=== PATIENT | female | born 1950 | race Caucasian/White ===

== ENCOUNTER 2016-10-24 09:29 | Outpatient (CLI) | payer MEDICARE, MEDICAID | END 2016-10-24 09:30 | disposition home or self-care (01) | DX: E89.0 Postprocedural hypothyroidism (principal); I10 Essential (primary) hypertension ==

== ENCOUNTER 2016-11-22 16:05 | Outpatient (CLI) | payer MEDICARE, MEDICAID | END 2016-11-22 16:06 | disposition home or self-care (01) | DX: D50.9 Iron deficiency anemia, unspecified (principal); R23.3 Spontaneous ecchymoses ==

== ENCOUNTER 2016-12-14 13:13 | Outpatient (CLI) | payer MEDICARE, MEDICAID | END 2016-12-14 13:14 | disposition home or self-care (01) | DX: E89.0 Postprocedural hypothyroidism (principal) ==

== ENCOUNTER 2016-12-16 12:14 | Observation (INO) | payer MEDICARE, MEDICAID ==
[2016-12-16] MEDS ORDERED: SODIUM CHLORIDE FLUSH 0.9% 10 ML SYRINGE IVP PRN (15:22)
[2016-12-16] MEDS ORDERED: ONDANSETRON ODT 4 MG TABLET TL PRN (15:22)
[2016-12-16] MEDS ORDERED: ACETAMINOPHEN/CODEINE 300 MG/30 MG TABLET PO PRN (15:42)
[2016-12-16] MEDS: INSULIN ASPART 300 UNIT/3 ML PEN SUBQ SCH ×2 (16:56→22:43)
[2016-12-16] MEDS: DIGOXIN 125 MCG TABLET PO SCH (17:00)
[2016-12-16] MEDS: GABAPENTIN 300 MG CAPSULE PO SCH ×2 (17:10→22:42)
[2016-12-16] MEDS: MORPHINE ER 15 MG TABLET PO SCH ×2 (17:10→22:42)
[2016-12-16] MEDS: ACETAMINOPHEN 325 MG TABLET PO PRN (20:46)
[2016-12-16] MEDS ORDERED: WARFARIN 2.5 MG TABLET PO SCH (22:00)
[2016-12-16] MEDS: WARFARIN 5 MG TABLET PO SCH (22:42)
[2016-12-16] MEDS: SODIUM CHLORIDE FLUSH 0.9% 10 ML SYRINGE IVP SCH (22:43)
[2016-12-16] MEDS ORDERED: NITROFURANTOIN MACRO 100 MG CAPSULE PO SCH (23:00)
[2016-12-17] MEDS: SODIUM CHLORIDE FLUSH 0.9% 10 ML SYRINGE IVP SCH ×2 (05:39→14:10)
[2016-12-17] MEDS: MORPHINE ER 15 MG TABLET PO SCH ×2 (05:39→14:09)
[2016-12-17] MEDS: GABAPENTIN 300 MG CAPSULE PO SCH ×2 (05:39→14:09)
[2016-12-17] MEDS: ACETAMINOPHEN 325 MG TABLET PO PRN (05:48)
[2016-12-17] MEDS ORDERED: diazePAM 5 MG TABLET PO SCH (08:00)
[2016-12-17] MEDS: DIGOXIN 125 MCG TABLET PO SCH (08:15)
[2016-12-17] MEDS: INSULIN ASPART 300 UNIT/3 ML PEN SUBQ SCH ×3 (08:16→16:48)
[2016-12-17] MEDS ORDERED: FAMOTIDINE 20 MG TABLET PO SCH (09:00)
[2016-12-17] MEDS ORDERED: POLYETHYLENE GLYCOL 3350 17 GM PACKET PO SCH (09:00)
[2016-12-17] MEDS ORDERED: LOSARTAN 50 MG TABLET PO SCH (09:00)
[2016-12-17] MEDS ORDERED: DULoxetine 30 MG CAPSULE PO SCH (09:00)
[2016-12-17] MEDS ORDERED: FUROSEMIDE 20 MG TABLET PO SCH (09:00)
[2016-12-17] MEDS ORDERED: ASPIRIN CHEW 81 MG TABLET PO SCH (09:00)
[2016-12-17] MEDS ORDERED: WARFARIN 5 MG TABLET PO SCH (14:00)
[2016-12-17] MEDS: WARFARIN 5 MG TABLET PO SCH (14:09)
== END 2016-12-17 19:00 | disposition home or self-care (01) ==
DX: I63.9 Cerebral infarction, unspecified (principal); H53.2 Diplopia; R29.700 NIHSS score 0; R91.8 Other nonspecific abnormal finding of lung field; I69.398 Other sequelae of cerebral infarction; I10 Essential (primary) hypertension; I48.2 Chronic atrial fibrillation; E11.9 Type 2 diabetes mellitus without complications; E89.0 Postprocedural hypothyroidism; E66.9 Obesity, unspecified; M79.7 Fibromyalgia; G89.29 Other chronic pain; F11.20 Opioid dependence, uncomplicated; F32.9 Major depressive disorder, single episode, unspecified; N30.20 Other chronic cystitis without hematuria; Z79.84 Long term (current) use of oral hypoglycemic drugs; Z79.01 Long term (current) use of anticoagulants; Z79.2 Long term (current) use of antibiotics; Z68.33 Body mass index [BMI] 33.0-33.9, adult; Z86.2 Personal history of diseases of the blood and blood-forming organs and certain disorders involving the immune mechanism
CPT/HCPCS: 36415; 70450; 70551; 71020; 80053; 81003; 83036; 83690; 83880; 84439; 84484; 85025; 85610; 85730; 93005; 93010; 93306; 93880; 99284; 99285; A9270; G0378

== ENCOUNTER 2017-01-18 08:39 | Outpatient (CLI) | payer MEDICARE, MEDICAID | END 2017-01-18 08:40 | disposition home or self-care (01) | DX: I63.9 Cerebral infarction, unspecified (principal); I66.21 Occlusion and stenosis of right posterior cerebral artery; I48.0 Paroxysmal atrial fibrillation ==

== ENCOUNTER 2017-01-22 10:30 | Outpatient (CLI) | payer MEDICARE, MEDICAID | END 2017-01-22 10:31 | disposition home or self-care (01) | DX: G89.4 Chronic pain syndrome (principal) ==

== ENCOUNTER 2017-02-28 13:32 | Outpatient (CLI) | payer MEDICARE, MEDICAID ==
--- NOTE | 2017-02-28 16:30 | MRI Report ---
EXAM: MRI BRAIN WITHOUT CONTRAST EXAM DATE: 02/28/2017 02:29 PM. CLINICAL HISTORY: CEREBRAL INFARCTION DUE TO EMBOLISM OF RT MIDDLE C. COMPARISON: MRI brain 01/18/2017, MRA brain 01/18/2017 TECHNIQUE: Multiplanar, multisequence T1-weighted and fluid-sensitive MR sequences of the brain were performed. Sequences optimized for routine evaluation. Other: None. IV Contrast: None. FINDINGS: Brain Volume: Normal for age. Parenchyma/Dura: Compared to the prior study performed on 01/18/2017, there is a new focus of high DW I signal and new FLAIR signal abnormality measuring 11 mm in the right cingulate gyrus (series 605 im age 128), with nearly normalized ADC values, likely representing a now subacute infarct. There is a 5 mm focus of restricted diffusion within the right frontal opercular region (series 605 image 112), m ay represent acute/early subacute infarct. There is also a 4 mm right cerebellar focus of restricted diffusion (series 605 image 56), which may also represent an acute/early subacute infarct. There is n o hemorrhagic transformation of any of the infarctions. No MRI evidence of intracranial hemorrhage or parenchymal microhemorrhages. Extensive, semi-confluent T2/FLAIR hyperintense white matter lesions w ithin periventricular, deep, and subcortical white matter of bilateral cerebral hemispheres as well a s within the abel centrally and within the cerebellar hemispheres. Ventricles/Cisterns: Normal. No hydrocephalus. Sinuses: Normal. No sinusitis evident. Bones: Normal. Other: Partially empty sella appearance is again noted. Status post bilateral lens placement surgerie s. The visualized orbits are otherwise unremarkable. IMPRESSION: 1. Compared to the prior study performed on 01/18/2017, there is a new focus of high DWI signal and n ew FLAIR signal abnormality measuring 11 mm in the right cingulate gyrus (series 605 image 128), with nearly normalized ADC values, likely representing a now subacute infarct. A 5 mm focus of restricted diffusion within the right frontal opercular region (series 605 image 112), likely representing acut e/early subacute infarct. A 4 mm right cerebellar focus of restricted diffusion (series 605 image 56) , which may also represent an acute/early subacute infarct. There is no hemorrhagic transformation of any of the infarctions. Given multiple foci, these may be embolic in etiology, involving right MCA, right REBECCA, and right PICA territories. 2. No MRI evidence of intracranial hemorrhage or parenchymal microhemorrhages. 3. Extensive, semi-confluent T2/FLAIR hyperintense white matter lesions within periventricular, deep, and subcortical white matter of bilateral cerebral hemispheres as well as within the abel centrally and within the cerebellar hemispheres. While nonspecific, these likely represent sequela of chronic m icroangiopathy. The ordering provider was paged at time of this dictation. [facility] The call report notification system was initiated by Dr. Laila Merino at 14:58 hrs on 02/28/17. The above findings were discussed with provider Provider Paged by Dr. Laila Merino at 16:26 hrs o n 02/28/17. Referring Provider Line: [phone] SITE ID: [id number]
== END 2017-02-28 13:33 | disposition home or self-care (01) ==
LOC: DI 13:32
PROVIDERS: ATTEND Psychiatry & Neurology Vascular Neurology
DX: I63.411 Cerebral infarction due to embolism of right middle cerebral artery (principal); G93.9 Disorder of brain, unspecified
CPT/HCPCS: 70551

== ENCOUNTER 2017-03-03 11:27 | Outpatient (CLI) | payer MEDICARE, MEDICAID ==
[2017-03-03 19:42] LABS: HEMOGLOBIN A1C 0.78 g/dL
== END 2017-03-03 11:28 | disposition home or self-care (01) ==
LOC: LAB.WCP 11:27
PROVIDERS: ATTEND Family Medicine
DX: E11.9 Type 2 diabetes mellitus without complications (principal)
CPT/HCPCS: 36415; 83036

== ENCOUNTER 2017-06-12 08:12 | Outpatient (CLI) | payer MEDICARE, MEDICAID ==
[2017-06-12 08:51] LABS: BASOPHILS # (AUTO) 0.1 10^3/uL (0.0-0.1); BASOPHILS % (AUTO) 0.8 %; EOSINOPHILS # (AUTO) 0.2 10^3/uL (0.0-0.7); EOSINOPHILS % (AUTO) 3.7 %; HCT - HEMATOCRIT 43.1 % (37.0-47.0); HGB - HEMOGLOBIN 14.2 g/dL (12.0-16.0); LYMPHOCYTES # (AUTO) 1.1 10^3/uL (1.5-3.5); LYMPHOCYTES % (AUTO) 17.7 %; MEAN CORPUSCULAR HEMOGLOBIN 27.7 pg (27.0-31.0); MEAN CORPUSCULAR VOLUME 83.9 fL (81.0-99.0); MEAN PLATELET VOLUME 7.2 fL (7.9-10.8); MONOCYTES # (AUTO) 0.5 10^3/uL (0.0-1.0); MONOCYTES % (AUTO) 8.1 %; NEUTROPHILS # (AUTO) 4.5 10^3/uL (1.5-6.6); NEUTROPHILS % (AUTO) 69.7 %; RED BLOOD COUNT 5.13 10^6/uL (4.20-5.40); RED CELL DISTRIBUTION WIDTH 15.5 % (12.0-15.0); UNCORRECTED WHITE BLOOD COUNT 6.4 x10^3/uL; WHITE BLOOD COUNT 6.4 x10^3/uL (4.8-10.8)
[2017-06-12 09:07] LABS: ALBUMIN/GLOBULIN RATIO 1.1 (1.0-2.2); BILIRUBIN,TOTAL 0.7 mg/dL (0.2-1.0); BUN - BLOOD UREA NITROGEN 16 mg/dL (6-20); CALCIUM 8.7 mg/dL (8.5-10.3); CARBON DIOXIDE - CO2 28 mmol/L (21-32); CHLORIDE 99 mmol/L (101-111); CHOL/HDL RATIO 6.5 (<4.4); CHOLESTEROL 274 mg/dL; CREATININE 0.9 mg/dL (0.4-1.0); GFR - MDRD 63 (>89); GLUCOSE 135 mg/dL (70-100); HDL CHOLESTEROL 42 mg/dL; LDL/HDL RATIO 4.1 (<4.4); POTASSIUM 4.2 mmol/L (3.5-5.0); SODIUM 136 mmol/L (135-145); TRIGLYCERIDES 296 mg/dL; VLDL CHOLESTEROL 59 mg/dL
[2017-06-12 09:43] LABS: HEMOGLOBIN A1C 0.89 g/dL
== END 2017-06-12 08:13 | disposition home or self-care (01) ==
LOC: LAB 08:12
PROVIDERS: ATTEND Family Medicine
DX: E11.9 Type 2 diabetes mellitus without complications (principal); I48.91 Unspecified atrial fibrillation; R00.1 Bradycardia, unspecified
CPT/HCPCS: 36415; 80053; 80061; 83036; 85025; 93005

== ENCOUNTER 2017-06-12 14:51 | Outpatient (CLI) | payer MEDICARE, MEDICAID | END 2017-06-12 14:52 | disposition home or self-care (01) | LOC: RT 14:51 | PROVIDERS: ATTEND Internal Medicine Cardiovascular Disease | DX: I48.91 Unspecified atrial fibrillation (principal); R00.1 Bradycardia, unspecified ==

== ENCOUNTER 2017-06-13 07:54 | Outpatient (CLI) | payer MEDICARE, MEDICAID ==
[2017-06-13] MEDS ORDERED: GADOBUTROL 10 MMOL/10 ML VIAL IVP ONE (08:43)
--- NOTE | 2017-06-13 11:08 | MRI Report ---
EXAM: MRI BRAIN WITHOUT AND WITH CONTRAST EXAM DATE: 06/13/2017 08:51 AM. CLINICAL HISTORY: 66-year-old with history of multiple TIAs. COMPARISON: MR brain 02/28/2017. TECHNIQUE: Multiplanar, multisequence T1-weighted and fluid-sensitive MR sequences of the brain were performed. Sequences optimized for routine evaluation. Other: None. Without and with IV Contrast: 10 cc GADAVIST. FINDINGS: Brain Volume: Normal for age. Parenchyma/Dura: There is a punctate area of restricted diffusion involving the posterior right temporal lobe measurin g up to 3 mm (series 505, image 80). There is associated T2/FLAIR signal hyperintensity. There is no associated susceptibility artifact. There is a linear area of T1 signal hyperintensity seen within the right internal capsule extending i nto the right cerebral peduncle is increased in extent since 02/28/2017. There is associated T2/FLAIR s ignal hyperintensity but no susceptibility artifact. No superimposed enhancement. 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 Compared to MR 02/28/2017 there is a chronic appearing lacunar infarct of the left abel (series 601, im age 8; series 402, image 34). There are additional old chronic lacunar infarcts seen involving the bilateral cerebellum, bilateral putamen, bilateral thalami, right caudate head, and lateral garnica radiata are unchanged from prior s tudy. There is additional moderate bilateral areas of T2/FLAIR signal hyperintensity seen and appear unchanged from prior study. No definite abnormal areas of parenchyma susceptibility artifact seen. No acute parenchymal hemorrhage, mass, or midline shift. No areas of abnormal postcontrast enhancemen t Pituitary: Normal. Ventricles/Cisterns: No definite abnormal extra axial fluid collection/mass seen. Ventricles and sulc i are prominent but appropriate for the extent of volume loss. Cisterns are patent. Fluid is seen wit hin Meckel's caves. Visualized internal auditory canals appear clear. Sinuses: Visualized paranasal sinuses, mastoid air cells, middle ear cavities are clear. Orbits: Changes of bilateral lens replacement. Vasculature: Visualized major intracranial flow voids appear maintained. Dural sinuses appear patent. Bones: Normal. Other: None. IMPRESSION: 1. Small punctate acute (1-7 days) infarct of the posterior right temporal lobe with no evidence of h emorrhagic transformation. 2. Compared to MR 02/28/2017 there is a chronic appearing lacunar infarct of the left abel. 3. There is a linear area of T1 signal hyperintensity seen within the right internal capsule extendin g into the right cerebral peduncle is increased in extent since 02/28/2017. Finding may represent nichelle ar necrosis. 4. Additional moderate white matter changes including old chronic lacunar infarcts that appear simila r to 02/28/2017 and likely represents sequela of chronic small vessel ischemic disease. 5. No definite acute intracranial hemorrhage, mass, hydrocephalus, or abnormal postcontrast enhanceme nt. RADIA The above findings were discussed with Jayla by Dr. Eamon Oswald at 11:03 hrs on . Referring Provider Line: [phone] SITE ID: [id number]
== END 2017-06-13 07:55 | disposition home or self-care (01) ==
LOC: DI 07:54
DX: I63.40 Cerebral infarction due to embolism of unspecified cerebral artery (principal); H53.2 Diplopia
CPT/HCPCS: 70553

== ENCOUNTER 2017-06-23 16:52 | Outpatient (CLI) | payer MEDICARE, MEDICAID | END 2017-06-23 16:53 | disposition home or self-care (01) | LOC: LAB 16:52 | PROVIDERS: ATTEND Nurse Practitioner | DX: E89.0 Postprocedural hypothyroidism (principal) | CPT/HCPCS: 36415; 84443 ==

== ENCOUNTER 2017-08-19 16:46 | Outpatient (CLI) | payer MEDICARE, MEDICAID ==
--- NOTE | 2017-08-20 08:43 | XRAY Report ---
STANDING BILATERAL KNEES: 08/19/2017 CLINICAL INDICATION: Bilateral knee pain. FINDINGS: Standing frontal and lateral views of the bilateral knees demonstrate moderate bilateral o steoarthritis. There is no evidence of fracture or dislocation. No effusion is present on either si de. IMPRESSION: MODERATE BILATERAL OSTEOARTHRITIS. JOB #: [id number] EXT JOB #:[id number]
== END 2017-08-19 16:47 | disposition home or self-care (01) ==
LOC: DI 16:46
PROVIDERS: ATTEND Family Medicine
DX: M17.0 Bilateral primary osteoarthritis of knee (principal)
CPT/HCPCS: 73565

== ENCOUNTER 2017-12-01 09:20 | Outpatient (CLI) | payer MEDICARE, MEDICAID ==
[2017-12-01 09:47] LABS: CALCIUM 9.2 mg/dL (8.5-10.3); CREATININE 0.9 mg/dL (0.4-1.0); MAGNESIUM 1.9 mg/dL (1.7-2.8)
== END 2017-12-01 09:21 | disposition home or self-care (01) ==
LOC: LAB 09:20
PROVIDERS: ATTEND Internal Medicine Cardiovascular Disease
DX: R60.0 Localized edema (principal); E83.42 Hypomagnesemia
CPT/HCPCS: 36415; 80048; 83735

== ENCOUNTER 2017-12-02 09:18 | Outpatient (CLI) | payer MEDICARE, MEDICAID | END 2017-12-02 09:19 | disposition critical access hospital (66) | LOC: EMS 09:18 | PROVIDERS: ATTEND Surgery | DX: S09.90XA Unspecified injury of head, initial encounter (principal); R47.81 Slurred speech; W18.39XA Other fall on same level, initial encounter; W22.8XXA Striking against or struck by other objects, initial encounter; Y92.031 Bathroom in apartment as the place of occurrence of the external cause | CPT/HCPCS: A0425; A0429 ==

== ENCOUNTER 2017-12-02 09:24 | Emergency (ER) | payer MEDICARE, MEDICAID ==
[2017-12-02] MEDS ORDERED: SODIUM CHLORIDE 0.9% 1,000 ML IV ONE (09:45)
--- NOTE | 2017-12-02 09:49 | ED Physician Documentation ---
History of Present Illness - Stated complaint Stated Complaint: GLF - Chief complaint Chief Complaint: General - History obtained from History obtained from: Patient, Family (daughter), EMS - History of Present Illness Timing: Prior to arrival - Additonal information Additional information: The patient is a 67-year-old insulin-dependent diabetic with history of CVAs and atrial fibrillation, on Eliquis, who presents via ambulance after falling in the bathroom this morning, hitting her head. She denies loss of consciousness. She reports global headache and nausea. She denies vomiting, chest pain, or shortness of breath. She reports feeling dizzy, which she describes as a spinning sensation, last night. This morning she became lightheaded prior to falling in the bathroom. Review of her medical record reveals hospitalization 1 year ago for CVA. Review of Systems Constitutional: reports: Fatigue, Other ("Dizziness"). denies: Fever Eyes: denies: Loss of vision Ears: denies: Tinnitus/ringing Nose: denies: Congestion Throat: denies: Sore throat Cardiac: denies: Chest pain / pressure, Palpitations Respiratory: denies: Dyspnea, Cough GI: reports: Nausea. denies: Abdominal Pain, Vomiting : denies: Dysuria Skin: denies: Rash Musculoskeletal: denies: Neck pain, Extremity pain Neurologic: reports: Generalized weakness, Headache, Head injury. 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 HEENT: Cataracts - Present Medications Home Medications: Ambulatory Orders Medication Instructions Recorded Confirmed Metoprolol Tartrate 50 mg PO BID 08/07/14 02/26/17 Omeprazole [PriLOSEC] 20 mg PO DAILY 08/07/14 02/26/17 diltiaZEM CD [Cardizem Cd] 120 mg PO DAILY 08/07/14 02/26/17 Morphine Sulfate [Ms Contin] 15 mg PO TID 05/31/15 02/26/17 metFORMIN [Glucophage] 1,000 mg PO BIDWM 02/08/16 02/26/17 Levothyroxine Sodium 100 mcg PO DAILY 12/16/16 02/26/17 Levothyroxine Sodium 137 mcg PO DAILY 12/16/16 02/26/17 Acetaminophen/Cod 300/30 [Tylenol 1 tab PO QID PRN #0 tablet 12/17/16 02/26/17 #3] Digoxin [Lanoxin] 125 mcg PO DAILY tablet 12/17/16 02/26/17 Furosemide [Lasix] 20 mg PO DAILY tablet 12/17/16 02/26/17 Dabigatran Etexilate Mesylate 150 mg PO BID 02/26/17 02/26/17 [Pradaxa] Gabapentin [Neurontin] 600 mg PO TID 02/26/17 05/12/17 Insulin Aspart [Novolog Flexpen] 5 units SQ QDDINNER 02/26/17 02/26/17 Insulin Glargine,Hum.rec.anlog 26 units SQ DAILY 02/26/17 02/26/17 [Lantus Solostar] Losartan Potassium 25 mg PO DAILY 02/26/17 05/12/17 Aspirin 81 mg PO DAILY 05/12/17 05/12/17 DULoxetine [Cymbalta] 90 mg PO DAILY 05/12/17 05/12/17 Dabigatran Etexilate Mesylate 150 mg PO BID 05/12/17 05/12/17 [Pradaxa] Nitrofurantoin [Macrobid] 100 mg PO DAILY 05/12/17 05/12/17 - Allergies Allergies/Adverse Reactions: Allergies Allergy/AdvReac Type Severity Reaction Status Date / Time albuterol Allergy Unknown Verified 04/17/16 14:44 cortisone Allergy Edema Verified 04/17/16 14:42 latex Allergy Hives Verified 04/17/16 14:45 prednisone Allergy Edema Verified 04/17/16 07:48 Sdcazif-[id number]-Xny Reductase Allergy Unknown Verified 04/17/16 07:48 Inhibitor oxycodone AdvReac Dizziness Verified 04/17/16 14:45 - Social History Does the pt smoke?: No Smoking Status: Never smoker Does the pt drink ETOH?: No Does the pt have substance abuse?: No - Immunizations Immunizations are current?: Yes PD ED PE NORMAL - Vitals Vital signs reviewed: Yes (hypertensive) - General General: Alert and oriented X 3, Well developed/nourished, Other (Speaks slowly and deliberately.) - HEENT HEENT: PERRL, EOMI, Pharynx benign, Other (Occipital scalp hematoma. Dry buccal mucosa.) - Neck Neck: Supple, no meningeal sign, No bony TTP, No adenopathy, No JVD - Cardiac Cardiac: RRR - Respiratory Respiratory: No respiratory distress, Clear bilaterally - Abdomen Abdomen: Soft, Non tender - Back Back: No CVA TTP - Derm Derm: No rash - Extremities Extremities: No edema, No calf tenderness / cord - Neuro Neuro: Alert and oriented X 3, No motor deficit, No sensory deficit, Other ( Slow speech.) Eye Opening: Spontaneous Motor: Obeys Commands Verbal: Oriented GCS Score: 15 Results - Vitals Vitals: Oxygen O2 Source [] Room air O2 Source [] Room air O2 Source Room air - EKG (time done) 10:37 Rate: Rate (enter#) (62) Rhythm: Atrial fibrillation [place]: Normal Ischemia: Q waves (in V2, consistent with previous anteroseptal UT.), T wave inversion (diffusely.) Compare to prior EKG: Unchanged from prior EKG Computer interpretation: Agree with computer - Labs Labs: Laboratory Tests 12/02/17 12/02/17 12/02/17 10:06 10:06 10:06 WBC 5.9 RBC 4.84 Hgb 13.0 Hct 39.3 MCV 81.1 MCH 26.8 L MCHC 33.0 RDW 15.6 H Plt Count 276 MPV 7.3 L Neut # 4.4 Lymph # 0.7 L Creek # 0.5 Eos # 0.2 Baso # 0.1 Absolute Nucleated RBC 0.00 Nucleated RBC % 0.0 PT 13.7 H INR 1.2 Sodium 135 Potassium 4.1 Chloride 98 L Carbon Dioxide 28 Anion Gap 9.0 BUN 14 Creatinine 0.7 Estimated GFR (MDRD) 84 L Glucose 157 H Lactic Acid Calcium 8.9 Total Bilirubin 0.5 AST 23 ALT 15 Alkaline Phosphatase 68 Troponin I Total Protein 7.1 Albumin 3.7 Globulin 3.4 Albumin/Globulin Ratio 1.1 Lipase < 10 L Urine Color Urine Clarity Urine pH Ur Specific [place] Urine Protein Urine Glucose (UA) Urine Ketones Urine Occult Blood Urine Nitrite Urine Bilirubin Urine Urobilinogen Ur Leukocyte Esterase Ur Microscopic Review Urine Culture Comments Last Dose Date Last Dose Time Digoxin 12/02/17 12/02/17 12/02/17 10:06 10:06 10:06 WBC RBC Hgb Hct MCV MCH MCHC RDW Plt Count MPV Neut # Lymph # [place] # Eos # Baso # Absolute Nucleated RBC Nucleated RBC % PT INR Sodium Potassium Chloride Carbon Dioxide Anion Gap BUN Creatinine Estimated GFR (MDRD) Glucose Lactic Acid 1.3 Calcium Total Bilirubin AST ALT Alkaline Phosphatase Troponin I < 0.04 Total Protein Albumin Globulin Albumin/Globulin Ratio Lipase Urine Color Urine Clarity Urine pH Ur Specific [place] Urine Protein Urine Glucose (UA) Urine Ketones Urine Occult Blood Urine Nitrite Urine Bilirubin Urine Urobilinogen Ur Leukocyte Esterase Ur Microscopic Review Urine Culture Comments Last Dose Date UNKNOWN Last Dose Time UNKNOWN Digoxin 0.5 12/02/17 12:06 WBC RBC Hgb Hct MCV MCH MCHC RDW Plt Count MPV Neut # Lymph # [place] # Eos # Baso # Absolute Nucleated RBC Nucleated RBC % PT INR Sodium Potassium Chloride Carbon Dioxide Anion Gap BUN Creatinine Estimated GFR (MDRD) Glucose Lactic Acid Calcium Total Bilirubin AST ALT Alkaline Phosphatase Troponin I Total Protein Albumin Globulin Albumin/Globulin Ratio Lipase Urine Color YELLOW Urine Clarity CLEAR Urine pH 6.5 Ur Specific [place] <=1.005 Urine Protein NEGATIVE Urine Glucose (UA) NEGATIVE Urine Ketones NEGATIVE Urine Occult Blood NEGATIVE Urine Nitrite NEGATIVE Urine Bilirubin NEGATIVE Urine Urobilinogen 0.2 (NORMAL) Ur Leukocyte Esterase NEGATIVE Ur Microscopic Review NOT INDICATED Urine Culture Comments NOT INDICATED Last Dose Date Last Dose Time Digoxin - Rads (name of study) Head CT Radiology: Prelim report reviewed, EMP read contemporaneously, See rad report ( Generalized age-related cortical atrophic changes without evidence of acute intracranial abnormality. 1.3 cm right posterior parietal scalp subgaleal hematoma noted.) PD MEDICAL DECISION MAKING - ED course Complexity details: reviewed old records, reviewed results, re-evaluated patient , considered differential, d/w patient, d/w family ED course: The patient's presentation is significant for dizziness with episode of falling in the bathroom, hitting her head. Her examination reveals an occipital scalp hematoma. Head CT reveals age related atrophy, without acute intracranial abnormality. Her dizziness is most likely related to dehydration. Recurrent lacunar infarct is a consideration, but is less likely given that she is anticoagulated on Eliquis. No specific neurologic deficits are detected. Chemistry panel and urinalysis are unremarkable. Electrocardiogram reveals no acute ischemic abnormality, and troponin is normal. Cardiac rhythm is atrial fibrillation, which is chronic. Treatment in the emergency department included administration of normal saline 1 L IV. She felt subjectively much improved after this treatment, and on reexamination she is more energetic and animated. She demonstrated ability to ambulate in the hallway without lightheadedness. I discussed with her and her daughter results of her workup, outpatient follow-up, as well as potentially worrisome signs or symptoms that should prompt reevaluation in the emergency department. Departure - Departure Disposition: 01 Home, Self Care Clinical Impression: Dehydration Fall Qualifiers: Encounter type: initial encounter Qualified Code(s): W19.XXXA - Unspecified fall, initial encounter Scalp hematoma Qualifiers: Encounter type: initial encounter Qualified Code(s): S00.03XA - Contusion of scalp, initial encounter Condition: Stable Instructions: ED Dehydration, ED Hematoma Follow-Up: Josephine Noriega DO [Primary Care Provider] - Comments: Drink plenty of fluids. Continue your blood pressure medication as previously prescribed. Follow up with your primary physician within 1-2 weeks. Call to schedule an appointment. Return to the emergency department if you develop recurrent lightheadedness, or otherwise worsening symptoms. Discharge Date/Time: 12/02/17 14:22
[2017-12-02 10:20] LABS: BASOPHILS # (AUTO) 0.1 10^3/uL (0.0-0.1); BASOPHILS % (AUTO) 0.9 %; EOSINOPHILS # (AUTO) 0.2 10^3/uL (0.0-0.7); EOSINOPHILS % (AUTO) 3.3 %; LYMPHOCYTES # (AUTO) 0.7 10^3/uL (1.5-3.5); LYMPHOCYTES % (AUTO) 11.6 %; MEAN CORPUSCULAR HEMOGLOBIN 26.8 pg (27.0-31.0); MEAN CORPUSCULAR VOLUME 81.1 fL (81.0-99.0); MEAN PLATELET VOLUME 7.3 fL (7.9-10.8); MONOCYTES # (AUTO) 0.5 10^3/uL (0.0-1.0); MONOCYTES % (AUTO) 8.6 %; NEUTROPHILS # (AUTO) 4.4 10^3/uL (1.5-6.6); NEUTROPHILS % (AUTO) 75.6 %; PLT - PLATELET COUNT 276 10^3/uL (130-450); RED BLOOD COUNT 4.84 10^6/uL (4.20-5.40); RED CELL DISTRIBUTION WIDTH 15.6 % (12.0-15.0); WHITE BLOOD COUNT 5.9 x10^3/uL (4.8-10.8)
--- NOTE | 2017-12-02 10:27 | CT Report ---
EXAM: CT HEAD EXAM DATE: 12/02/2017 09:53 AM. CLINICAL HISTORY: Fall with occipital hematoma; on Eliquis. COMPARISON: 06/13/2017. TECHNIQUE: Multiaxial CT images were obtained from the foramen magnum to the vertex. Reformats: Coron al. IV contrast: None. In accordance with CT protocol optimization, one or more of the following dose reduction techniques w ere utilized for this exam: automated exposure control, adjustment of mA and/or KV based on patient s ize, or use of iterative reconstructive technique. FINDINGS: Parenchyma: No intraparenchymal hemorrhage. No evidence of mass, midline shift, or CT findings of acu te infarction. Graves-white differentiation is distinct. Diffuse chronic microangiopathic white matter changes are evident. Extraaxial Spaces: Normal for age. No subdural or epidural collections identified. Ventricles: The ventricles and cortical sulci are enlarged, consistent with age-related tissue loss. Sinuses and orbits: Imaged paranasal sinuses, orbits, and mastoids show no significant abnormality. Bones: No evidence of fracture or calvarial defect. Other: 1.3 cm right posterior parietal scalp subgaleal hematoma. IMPRESSION: 1. Generalized age-related cortical atrophic changes without evidence of acute intracranial abnormali ty. 2. 1.3 cm right posterior parietal scalp subgaleal hematoma noted. [facility] Referring Provider Line: [phone] SITE ID: [id number]
--- NOTE | 2017-12-02 10:27 | CT Preliminary Report ---
Exam: CT HEAD W/O IMPRESSION: 1. Generalized age-related cortical atrophic changes without evidence of acute intracranial abnormali ty. 2. 1.3 cm right posterior parietal scalp subgaleal hematoma noted. RADI SITE ID: [id number]
[2017-12-02 10:28] LABS: DIGOXIN 0.5 ng/mL
[2017-12-02 10:29] LABS: ALBUMIN 3.7 g/dL (3.2-5.5); ALBUMIN/GLOBULIN RATIO 1.1 (1.0-2.2); ALKALINE PHOSPHATASE 68 IU/L (42-121); ALT ALANINE AMINOTRANSFERASE 15 IU/L (10-60); AST ASPARTATE AMINOTRANSFERASE 23 IU/L (10-42); BILIRUBIN,TOTAL 0.5 mg/dL (0.2-1.0); BUN - BLOOD UREA NITROGEN 14 mg/dL (6-20); CALCIUM 8.9 mg/dL (8.5-10.3); CARBON DIOXIDE - CO2 28 mmol/L (21-32); CHLORIDE 98 mmol/L (101-111); CREATININE 0.7 mg/dL (0.4-1.0); GFR - MDRD 84 (>89); GLUCOSE 157 mg/dL (70-100); LIPASE < 10 U/L (22-51); SODIUM 135 mmol/L (135-145); TOTAL PROTEIN 7.1 g/dL (6.7-8.2)
[2017-12-02 10:31] LABS: INR 1.2 (0.8-1.2); PT - PROTHROMBIN TIME 13.7 secs (9.9-12.6)
[2017-12-02 12:13] LABS: BILIRUBIN,URINE NEGATIVE (NEGATIVE); GLUCOSE, URINE (UA) NEGATIVE (NEGATIVE); KETONES,URINE (UA) NEGATIVE (NEGATIVE); LEUKOCYTE ESTERASE, URINE NEGATIVE (NEGATIVE); NITRITE,URINE NEGATIVE (NEGATIVE); OCCULT BLOOD,URINE NEGATIVE (NEGATIVE); PH,URINE 6.5 PH (5.0-7.5); PROTEIN,URINE NEGATIVE (NEGATIVE); UROBILINOGEN,URINE 0.2 (NORMAL) E.U./dL (NORMAL)
[2017-12-02 12:14] LABS: CLARITY,URINE CLEAR (CLEAR)
[2017-12-02 13:06] VITALS: BP 221/106
== END 2017-12-02 14:22 | disposition home or self-care (01) ==
LOC: EDUNIT# → ED 09:24
DX: S00.03XA Contusion of scalp, initial encounter (principal); W18.30XA Fall on same level, unspecified, initial encounter; I10 Essential (primary) hypertension; E03.9 Hypothyroidism, unspecified; E11.9 Type 2 diabetes mellitus without complications; I48.91 Unspecified atrial fibrillation; Z79.4 Long term (current) use of insulin; Z79.01 Long term (current) use of anticoagulants; Z79.82 Long term (current) use of aspirin; Z86.73 Personal history of transient ischemic attack (TIA), and cerebral infarction without residual deficits
CPT/HCPCS: 36415; 70450; 80053; 80162; 81001; 81003; 83605; 83690; 84484; 85025; 85610; 87086; 93005; 96360; 99283; 99284

== ENCOUNTER 2017-12-29 17:04 | Inpatient (IN) | payer MEDICARE, MEDICAID ==
[2017-12-29 17:34] LABS: BASOPHILS # (AUTO) 0.1 10^3/uL (0.0-0.1); BASOPHILS % (AUTO) 1.6 %; EOSINOPHILS # (AUTO) 0.3 10^3/uL (0.0-0.7); EOSINOPHILS % (AUTO) 4.8 %; HGB - HEMOGLOBIN 12.4 g/dL (12.0-16.0); LYMPHOCYTES # (AUTO) 1.4 10^3/uL (1.5-3.5); LYMPHOCYTES % (AUTO) 22.9 %; MEAN CORPUSCULAR HGB CONC 32.4 g/dL (32.0-36.0); MEAN CORPUSCULAR VOLUME 80.2 fL (81.0-99.0); MEAN PLATELET VOLUME 7.1 fL (7.9-10.8); MONOCYTES # (AUTO) 0.6 10^3/uL (0.0-1.0); MONOCYTES % (AUTO) 10.3 %; NEUTROPHILS # (AUTO) 3.7 10^3/uL (1.5-6.6); NEUTROPHILS % (AUTO) 60.4 %; PLT - PLATELET COUNT 329 10^3/uL (130-450); RED BLOOD COUNT 4.76 10^6/uL (4.20-5.40); WHITE BLOOD COUNT 6.1 x10^3/uL (4.8-10.8)
[2017-12-29 18:11] LABS: ALBUMIN 3.7 g/dL (3.2-5.5); ALKALINE PHOSPHATASE 75 IU/L (42-121); ALT ALANINE AMINOTRANSFERASE 16 IU/L (10-60); AST ASPARTATE AMINOTRANSFERASE 23 IU/L (10-42); BILIRUBIN,TOTAL 0.4 mg/dL (0.2-1.0); BUN - BLOOD UREA NITROGEN 13 mg/dL (6-20); CALCIUM 8.8 mg/dL (8.5-10.3); CARBON DIOXIDE - CO2 28 mmol/L (21-32); CHLORIDE 98 mmol/L (101-111); CREATININE 0.8 mg/dL (0.4-1.0); GFR - MDRD 72 (>89); GLUCOSE 100 mg/dL (70-100); LIPASE < 10 U/L (22-51); SODIUM 135 mmol/L (135-145); TOTAL PROTEIN 7.4 g/dL (6.7-8.2)
--- NOTE | 2017-12-29 18:24 | ED Physician Documentation ---
PD HPI FOCAL NEURO - Stated complaint Stated Complaint: SLURRED SPEECH WITH TONGUE, TILTED VISION, PX - Chief complaint Chief Complaint: Neuro - History obtained from History obtained from: Patient, Family - History of Present Illness Timing - onset: How many days ago (2) Timing - duration: Days (2) Timing - details: Abrupt onset (she noted some facial droop and daughters noted her to be talking slower and deliberate yesterday and seemed worse today. Daughters noted that she was coughing and gagging some with drinking fluids. Has not had any food today.), Still present Severity of deficit: Moderate Weakness: Face, Left Numbness: Face, Left Associated symptoms: Headache (mild). No: Head injury, Chest pain, Fever Contributing factors: positive: Anticoagulated, Atrial fibrillation Baseline status: positive: Cane, Mildly confused Similar symptoms before: Diagnosis (has had prior CVAs with some mild left arm/ leg weakness and dysarthria. Usually talks pretty well and no facial droop.) Review of Systems Ten Systems: 10 systems reviewed and negative Constitutional: denies: Fever, Chills Eyes: denies: Loss of vision, Decreased vision, Photophobia Nose: denies: Rhinorrhea / runny nose, Congestion Throat: denies: Sore throat Cardiac: denies: Chest pain / pressure, Palpitations Respiratory: denies: Dyspnea, Cough GI: denies: Abdominal Pain, Nausea, Vomiting, Diarrhea : denies: Dysuria, Frequency Skin: denies: Rash, Lesions Musculoskeletal: denies: Neck pain, Back pain Neurologic: reports: Focal weakness, Difficulty speaking, Confused (more deliberate talking), Headache. denies: Generalized weakness, Near syncope, Syncope, Unresponsive, Head injury Psychiatric: denies: Depressed, Anxiety Endocrine: reports: Easy bruising / bleeding. 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 HEENT: Cataracts - Present Medications Home Medications: Ambulatory Orders Medication Instructions Recorded Confirmed Metoprolol Tartrate 50 mg PO BID 08/07/14 02/26/17 Omeprazole [PriLOSEC] 20 mg PO DAILY 08/07/14 02/26/17 [id number] CD [Cardizem Cd] 120 mg PO DAILY 08/07/14 02/26/17 Morphine Sulfate [Ms Contin] 15 mg PO TID 05/31/15 12/30/17 metFORMIN [Glucophage] 1,000 mg PO BIDWM 02/08/16 12/30/17 Levothyroxine Sodium 100 mcg PO QDAC 12/16/16 12/30/17 Levothyroxine Sodium 137 mcg PO QDAC 12/16/16 12/30/17 Acetaminophen/Cod 300/30 [Tylenol 1 tab PO QID PRN #0 tablet 12/17/16 12/30/17 #3] Digoxin [Lanoxin] 125 mcg PO DAILY tablet 12/17/16 12/30/17 Furosemide [Lasix] 20 mg PO DAILY tablet 12/17/16 02/26/17 Gabapentin [Neurontin] 300 mg PO TID 02/26/17 12/30/17 Insulin Aspart [Novolog Flexpen] 5 units SQ QDDINNER 02/26/17 02/26/17 Insulin Glargine,Hum.rec.anlog 26 units SQ DAILY 02/26/17 02/26/17 [Lantus Solostar] Losartan Potassium 25 mg PO DAILY 02/26/17 05/12/17 Aspirin 81 mg PO DAILY 05/12/17 12/30/17 DULoxetine [Cymbalta] 90 mg PO DAILY 05/12/17 12/30/17 Nitrofurantoin Macrocrystal 50 mg PO DAILY 12/30/17 12/30/17 [Nitrofurantoin] - Allergies Allergies/Adverse Reactions: Allergies Allergy/AdvReac Type Severity Reaction Status Date / Time albuterol Allergy Unknown Verified 04/17/16 14:44 cortisone Allergy Edema Verified 04/17/16 14:42 latex Allergy Hives Verified 04/17/16 14:45 prednisone Allergy Edema Verified 04/17/16 07:48 Imndbth-Onz-Vpi Reductase Allergy Unknown Verified 04/17/16 07:48 Inhibitor oxycodone AdvReac Dizziness Verified 04/17/16 14:45 - Social History Does the pt smoke?: No Smoking Status: Never smoker Does the pt drink ETOH?: No Does the pt have substance abuse?: No - Family History Family history: reports: Non contributory - Immunizations Immunizations are current?: Yes PD ED PE NORMAL - Vitals Vital signs reviewed: Yes - General General: Alert and oriented X 3, No acute distress, Well developed/nourished - HEENT HEENT: Ears normal, Pharynx benign, Other (normal apparent gag reflex. ) - Neck Neck: Supple, no meningeal sign, No adenopathy, No JVD - Cardiac Cardiac: No murmur. No: RRR (irregular but good rate. ) - Respiratory Respiratory: Clear bilaterally - Abdomen Abdomen: Soft, Non tender - Back Back: No CVA TTP - Derm Derm: Normal color, Warm and dry - Extremities Extremities: No deformity, No tenderness to palpate, Normal ROM s pain, No calf tenderness / cord - Neuro Neuro: Alert and oriented X 3, No motor deficit, Normal speech, Other (mild left facial droop.) Eye Opening: Spontaneous Motor: Obeys Commands Verbal: Oriented GCS Score: 15 NIHSS - Level of Consciousness Level of consciousness: (0) Alert, Keenly responsive LOC Questions: (0) Answers both Q's correct LOC Commands: (0) Performs both correctly - Gaze Best Gaze: (0) Normal - Visual Visual: (0) No loss - Facial Palsy Facial Palsy: (1) Minor paralysis - Motor Arms (both separate) Motor Arm (right): (0) No drift Motor Arm (left): (0) No drift - Motor Legs (both separate) Motor Leg (right): (0) No drift Motor Leg (left): (0) No drift - Limb Ataxia Limb Ataxia: (1) Present in 1 limb - Sensory Sensory: (0) Normal - Best Language Best Language: (0) No aphasia - Dysarthria Dysarthria: (1) [id number] dysarthria - Extinction and Inattention (formally neg Extinction and inattention: (0) No abnormality - Total Score/Results Total Score/Result: 3 Results - Vitals Vitals: Vital Signs - 24 hr 12/29/17 12/29/17 12/29/17 17:07 19:37 19:52 Temperature 36.0 C L Heart Rate 60 61 64 Respiratory 18 15 16 Rate Blood Pressure 157/72 H 162/102 H 172/82 H O2 Saturation 97 93 96 Oxygen O2 Source [With Activity] Room air O2 Source [Without Activity] Room air O2 Source Room air - EKG (time done) 17:29 Rate: Jun Rhythm: Atrial fibrillation Intervals: RBBB Ischemia: Normal ST segments. No: ST elevation c/w ischemia, ST depression - Labs Labs: Laboratory Tests 12/29/17 12/29/17 12/29/17 17:15 17:23 17:23 WBC 6.1 RBC 4.76 Hgb 12.4 Hct 38.2 MCV 80.2 L MCH 26.0 L MCHC 32.4 RDW 16.0 H Plt Count 329 MPV 7.1 L Neut # 3.7 Lymph # 1.4 L [place] # 0.6 Eos # 0.3 Baso # 0.1 Absolute Nucleated RBC 0.00 Nucleated RBC % 0.0 PT INR APTT Sodium 135 Potassium 4.3 Chloride 98 L Carbon Dioxide 28 Anion Gap 9.0 BUN 13 Creatinine 0.8 Estimated GFR (MDRD) 72 L Glucose 100 POC Whole Bld Glucose 82 Calcium 8.8 Magnesium Total Bilirubin 0.4 AST 23 ALT 16 Alkaline Phosphatase 75 Total Protein 7.4 Albumin 3.7 Globulin 3.7 Albumin/Globulin Ratio 1.0 Lipase < 10 L Last Dose Date Last Dose Time Digoxin 12/29/1718 12/29/17 17:23 17:23 19:18 WBC RBC Hgb Hct MCV MCH MCHC RDW Plt Count MPV Neut # Lymph # [place] # Eos # Baso # Absolute Nucleated RBC Nucleated RBC % PT 14.0 H INR 1.3 H APTT 39.0 H Sodium Potassium Chloride Carbon Dioxide Anion Gap BUN Creatinine Estimated GFR (MDRD) Glucose POC Whole Bld Glucose Calcium Magnesium 2.1 Total Bilirubin AST ALT Alkaline Phosphatase Total Protein Albumin Globulin Albumin/Globulin Ratio Lipase Last Dose Date UNKNOWN Last Dose Time UNKNOWN Digoxin 0.6 - Rads (name of study) head CT Radiology: Prelim report reviewed (no acute bleed. ) chest xray Radiology: Prelim report reviewed (no infiltrates nor acute process) PD MEDICAL DECISION MAKING - ED course Complexity details: considered differential (sounding like new CVA, with CT not showing acute process. She is on Eliquis. Has had several strokes in the past so may not have much intervention regarding stroke prevention but she was having some cough and gagging per family, so will want to assess swallow study regarding aspiration and eating function. ), d/w patient Departure - Departure Disposition: ED Place in Observation Clinical Impression: Impaired speech Qualifiers: Speech disturbance type: other speech disturbance Qualified Code(s): R47.89 - Other speech disturbances CVA (cerebral vascular accident) Qualifiers: CVA mechanism: unspecified Qualified Code(s): I63.9 - Cerebral infarction, unspecified Trouble swallowing Qualifiers: Dysphagia type: unspecified Qualified Code(s): R13.10 - Dysphagia, unspecified Condition: Stable Record reviewed to determine appropriate education?: Yes Discharge Date/Time: 12/29/17 20:38
[2017-12-29 18:46] LABS: DIGOXIN 0.6 ng/mL
[2017-12-29 19:27] LABS: INR 1.3 (0.8-1.2)
--- NOTE | 2017-12-29 19:33 | CT Report ---
EXAM: CT HEAD EXAM DATE: 12/29/2017 07:06 PM. CLINICAL HISTORY: Trouble speaking and facial weakness x 2 days. COMPARISON: 12/02/2017. TECHNIQUE: Multiaxial CT images were obtained from the foramen magnum to the vertex. Reformats: Coron al. IV contrast: None. In accordance with CT protocol optimization, one or more of the following dose reduction techniques w ere utilized for this exam: automated exposure control, adjustment of mA and/or KV based on patient s ize, or use of iterative reconstructive technique. FINDINGS: Parenchyma: No intraparenchymal hemorrhage. No evidence of mass, midline shift, or CT findings of acu te infarction. Lacunar infarction on the right. Graves-white differentiation is distinct. Diffuse chron ic microangiopathic white matter changes. Extraaxial Spaces: Normal for age. No subdural or epidural collections. Ventricles: The ventricles and cortical sulci are enlarged, consistent with age-related tissue loss. Sinuses and orbits: Imaged paranasal sinuses, orbits, and mastoids show no significant abnormality. Bones: Unremarkable. Other: None. IMPRESSION: Atrophic and other chronic findings. No acute disease. [facility] Referring Provider Line: [phone] SITE ID: [id number]
[2017-12-29] MEDS ORDERED: SODIUM CHLORIDE FLUSH 0.9% 10 ML SYRINGE IVP PRN (19:54)
[2017-12-29] MEDS ORDERED: ONDANSETRON 4 MG/2 ML VIAL IVP PRN (20:00)
[2017-12-29] MEDS ORDERED: PROMETHAZINE 25 MG/1 ML VIAL IM PRN (20:00)
[2017-12-29] MEDS ORDERED: HYDROcod/ACETAM 10 MG/325 MG TABLET PO PRN (20:00)
[2017-12-29] MEDS ORDERED: ACETAMINOPHEN 325 MG TABLET PO PRN (20:00)
[2017-12-29] MEDS ORDERED: MORPHINE 2 MG/ML SYRINGE IVP PRN (20:00)
[2017-12-29] MEDS ORDERED: PROCHLORPERAZINE 10 MG/2 ML VIAL IVP PRN (20:00)
[2017-12-29] MEDS ORDERED: HYDROcod/ACETAM 5/325 MG TABLET PO PRN (20:00)
[2017-12-29] MEDS ORDERED: IOPAMIDOL-300 100 ML VIAL ONE (20:36)
[2017-12-29 20:44] LABS: BILIRUBIN,URINE NEGATIVE (NEGATIVE); GLUCOSE, URINE (UA) NEGATIVE (NEGATIVE); KETONES,URINE (UA) NEGATIVE (NEGATIVE); LEUKOCYTE ESTERASE, URINE NEGATIVE (NEGATIVE); NITRITE,URINE NEGATIVE (NEGATIVE); OCCULT BLOOD,URINE NEGATIVE (NEGATIVE); PROTEIN,URINE NEGATIVE (NEGATIVE); UROBILINOGEN,URINE 0.2 (NORMAL) E.U./dL (NORMAL)
[2017-12-29 21:03] LABS: CLARITY,URINE CLEAR (CLEAR)
--- NOTE | 2017-12-29 21:12 | XRAY Report ---
EXAM: CHEST RADIOGRAPHY EXAM DATE: 12/29/2017 08:24 PM. CLINICAL HISTORY: Cough/congestion. COMPARISON: 12/16/2016. TECHNIQUE: 1 view. FINDINGS: Lungs/Pleura: Streaky increased density in medial right base. Otherwise clear. No consolidation, effu bruce, or pneumothorax. Mediastinum: Mild cardiomegaly, probably unchanged. Upper lobe vessels not distended. Other: Osteopenia, degenerative changes. IMPRESSION: Medial right basilar infiltrate or atelectasis. [facility] Referring Provider Line: [phone] SITE ID: [id number]
[2017-12-29] MEDS: SODIUM CHLORIDE 0.9% 1,000 ML IV SCH (21:33)
[2017-12-29] MEDS: GABAPENTIN 300 MG CAPSULE PO SCH (21:34)
[2017-12-29] MEDS: METOPROLOL TARTRATE 50 MG TABLET PO SCH (21:35)
[2017-12-29] MEDS: MORPHINE ER 15 MG TABLET PO SCH (21:35)
--- NOTE | 2017-12-29 21:47 | HISTORY & PHYSICAL EXAMINATION ---
Chief Complaint - Chief Complaint Chief Complaint: Slurred speech History of Present Illness - Admitted From Admitted From:: Emergency department - History Obtained From Records Reviewed: Yes History obtained from: Patient and patient's daughter Exam Limitations: None - History of Present Illness HPI Comment/Other: Patient is a very pleasant 68-year-old female with a past medical history significant for multiple strokes including 2 in 2003, one in 2005 and a recent stroke in 2017, atrial fibrillation on Eliquis, diabetes, hypothyroidism, anemia , bilateral lower extremity edema, hypertension, osteoarthritis, fibromyalgia and chronic pain who presented to the emergency department with a chief complaint of slurred speech. The patient states that she was in her normal state of health until just 2 days ago when she was noted to have slurred speech. The patient's daughter states that she noticed that her mother was slurring her words more than normal. She also noticed that she was having a difficult time expressing herself. The patient did not want to come to the emergency department at that point so they just let her rest and she seemed to do better. The patient's daughter states that she called her mother at around 4 PM today and the patient told her daughter that the TV appeared to be crooked. This alarmed the patient's daughter and she told the patient that she needs to go to the emergency department. The patient's daughter has also noticed that the patient has been having difficulty chewing her food and swallowing. She states that she will often noticed that her mom is choking on food. The patient states that she did feel very drowsy and sleepy today. She also stated that she was having trouble handling things in her hands. The patient's daughter states that the patient recently has been having issues with her fine motor coordination. A lot of the patient's issues are chronic from her previous strokes but things seem to be acutely worse over the last couple days and that was the daughter's concern. The patient's daughter is also concerned that the patient is becoming more forgetful and that she may be developing dementia. The patient does admit to a headache. She states that it is a right sided headache. She does not have any photophobia or phonophobia. She also denies any nausea or vomiting. The patient denies any fevers, chills, runny nose, sore throat, nasal congestion , neck pain, chest pain, shortness of air, orthopnea, PND, increased lower extremity swelling, abdominal pain, diarrhea, constipation, joint pain, joint swelling, muscle aches, neck stiffness, recent unintentional weight loss, changes in her appetite, polyuria, polydipsia, hair loss, new skin rashes, night sweats. On presentation to the emergency department the patient was afebrile heart rate was within normal limits, she was slightly hypertensive but otherwise was not in any respiratory distress. The patient's lab work revealed a normal CBC, INR of 1.3, normal electrolytes, normal urine analysis and a digoxin level of 0.6. The patient did undergo a chest x-ray which revealed a medial right basilar infiltrate or atelectasis but given her lack of respiratory symptoms and lack of fever as well as lack of leukocytosis the patient was not treated for pneumonia. The patient also underwent a CT of her head which showed atrophic and other chronic findings without any evidence of acute disease. The patient' s EKG showed that the patient was in chronic atrial fibrillation. The patient was placed in observation for further neurologic workup including neuro checks and MRI evaluation. History - Past Medical History Cardiovascular: reports: Hypertension, Atrial fibrillation Respiratory: reports: Asthma Neuro: reports: CVA, TIA Endocrine/Autoimmune: reports: Type 2 diabetes, HyPOthyroidism, Other GI: reports: GERD, GI bleed, Ulcers : reports: Incontinence, Chronic bladder infection HEENT: reports: Chronic vision loss Psych: reports: Depression, Anxiety, Claustrophobia Musculoskeletal: reports: Osteoarthritis, Fibromyalgia Derm: reports: None MRSA Hx?: No Other Past Medical History: Lupus in remission - Past Surgical History General: reports: Bowel surgery, Colonoscopy Ortho: reports: Rotator cuff repair /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 She lives on her own, but her daughter is her caregiver and is around most of the day. She has lived on [facility] for over 40 years now. Prior to that she was born and raised in [place]. She has 3 daughters, 2 of whom live in [place], 1 of whom lives in [facility]. The patient is . The patient has never drank alcohol, she does not smoke. She was, however, exposed to secondhand smoke from her parents for a number of years. She denies any illicit drug use. - POLST Patient has POLST: No POLST Status: Full Code Meds/Allgy - Home Medications Home Medications: Ambulatory Orders Medication Instructions Recorded Confirmed Metoprolol Tartrate 50 mg PO BID 08/07/14 02/26/17 Omeprazole [PriLOSEC] 20 mg PO DAILY 08/07/14 02/26/17 diltiaZEM CD [Cardizem Cd] 120 mg PO DAILY 08/07/14 02/26/17 Morphine Sulfate [Ms Contin] 15 mg PO TID 05/31/15 02/26/17 metFORMIN [Glucophage] 1,000 mg PO BIDWM 02/08/16 02/26/17 Levothyroxine Sodium 100 mcg PO DAILY 12/16/16 02/26/17 Levothyroxine Sodium 137 mcg PO DAILY 12/16/16 02/26/17 Acetaminophen/Cod 300/30 [Tylenol 1 tab PO QID PRN #0 tablet 12/17/16 02/26/17 #3] Digoxin [Lanoxin] 125 mcg PO DAILY tablet 12/17/16 02/26/17 Furosemide [Lasix] 20 mg PO DAILY tablet 12/17/16 02/26/17 Dabigatran Etexilate Mesylate 150 mg PO BID 02/26/17 02/26/17 [Pradaxa] Gabapentin [Neurontin] 600 mg PO TID 02/26/17 05/12/17 Insulin Aspart [Novolog Flexpen] 5 units SQ QDDINNER 02/26/17 02/26/17 Insulin Glargine,Hum.rec.anlog 26 units SQ DAILY 02/26/17 02/26/17 [Lantus Solostar] Losartan Potassium 25 mg PO DAILY 02/26/17 05/12/17 Aspirin 81 mg PO DAILY 05/12/17 05/12/17 DULoxetine [Cymbalta] 90 mg PO DAILY 05/12/17 05/12/17 Dabigatran Etexilate Mesylate 150 mg PO BID 05/12/17 05/12/17 [Pradaxa] Nitrofurantoin [Macrobid] 100 mg PO DAILY 05/12/17 05/12/17 - Allergies Allergies/Adverse Reactions: Allergies Allergy/AdvReac Type Severity Reaction Status Date / Time albuterol Allergy Unknown Verified 04/17/16 14:44 cortisone Allergy Edema Verified 04/17/16 14:42 latex Allergy Hives Verified 04/17/16 14:45 prednisone Allergy Edema Verified 04/17/16 07:48 Otzefgi-Dld-Lhw Reductase Allergy Unknown Verified 04/17/16 07:48 Inhibitor oxycodone AdvReac Dizziness Verified 04/17/16 14:45 Review of Systems - Other Findings Other Findings: A comprehensive review of systems was performed the pertinent positives and negatives are stated above in the HPI and the remainder of the review of systems is negative. Exam - Vital Signs Reviewed Vital Signs: Yes Vital Signs: Vital Signs x48h BP 12/29/17 21:35 170/106 H - Physical Exam General Appearance: positive: Alert, Other (Slurred speech) Eyes Bilateral: positive: Normal inspection, PERRL, EOMI, No lid inflammation, Conjunctivae nml, No scleral icterus ENT: positive: ENT inspection nml, Pharynx nml, No signs of dehydration. negative: Purulent nasal drainage, Pharyngeal erythema, Oral lesions Neck: positive: Nml inspection, Thyroid nml, No JVD, Trachea midline. negative : Thyromegaly, Lymphadenopathy (R), Lymphadenopathy (L), Carotid bruit, Tracheal deviation Respiratory: positive: Chest non-tender, No respiratory distress, Breath sounds nml. negative: Wheezes, Rales, Rhonchi Cardiovascular: positive: No murmur, No gallop, Irregularly irregular Peripheral Pulses: positive: 2+ Abdomen: positive: Non-tender, No organomegaly, Nml bowel sounds, No distention. negative: Guarding, Rebound, Hepatomegaly Back: positive: Nml inspection. negative: CVA tenderness (R), CVA tenderness (L ) Skin: positive: Color nml, No rash, Warm. negative: Diaphoresis, Pallor Extremities: positive: Non-tender, Full ROM, Nml appearance, Pedal edema ( BIlateral) Neurologic/Psychiatric: positive: CN's nml (2-12), Disoriented to time, Weakness (Slightly weaker on the right than the left.), Slurred/abnml speech ( Slurred speech and mild facial droop on the left.) Conclusion/Plan - Problem List (1) Impaired speech Conclusion/Plan: According to the patient's daughter the patient has increasingly slurred speech compared to her baseline since the past 2 days. The patient also has had some difficulty with word finding. Today she noticed that she had some diplopia and thought the TV looked crooked. The patient's diplopia has completely resolved but the patient continues to have the impaired speech. The patient also has noted to have had difficulties with her swallowing. Given the patient's history of multiple CVAs in the past along with TIAs it was felt that the patient should get evaluated for a possible new stroke. The patient's CT head was negative for any acute changes. Plan: CT angiogram head and neck MRI Neurochecks Telemetry monitoring Continue aspirin and Eliquis Patient has an allergy to statins therefore she cannot be placed on a statin Echocardiogram Qualifiers: Speech disturbance type: other speech disturbance Qualified Code(s): R47.89 - Other speech disturbances (2) Atrial fibrillation Conclusion/Plan: Patient has history of chronic atrial fibrillation and is on Eliquis, diltiazem , metoprolol and digoxin for anticoagulation and rate control. Patient has had multiple CVAs in the past and her chads 2 score is 4. Currently the patient's rate is controlled and she is compliant with Eliquis Plan: She will be continued on her home doses of diltiazem, metoprolol and digoxin Patient will be continued on Eliquis Echocardiogram Qualifiers: Atrial fibrillation type: chronic Qualified Code(s): I48.2 - Chronic atrial fibrillation (3) Diabetes Conclusion/Plan: Patient has type 2 diabetes and is on home insulin. On presentation the patient 's blood glucose is very well controlled. The patient will be continued on her home dose of Lantus and will be placed on sliding scale insulin while she is hospitalized. The patient is on 26 units of Lantus daily. We will hold the patient's metformin while she is hospitalized. We will check a hemoglobin A1c. The patient will be placed on a diabetic diet and we will check her blood glucose before meals at bedtime. Qualifiers: Diabetes mellitus type: type 2 Diabetes mellitus detention insulin use: with oil heaterman use Diabetes mellitus complication status: with neurologic complications Diabetes mellitus complication detail: with other neurological complication Qualified Code(s): E11.49 - Type 2 diabetes mellitus with other diabetic neurological complication; Z79.4 - oil heaterman (current) use of insulin; Z79.4 - penitentiary (current) use of insulin; Z79.4 - penitentiary (current) use of insulin; Z79.4 - penitentiary (current) use of insulin (4) Chronic pain Conclusion/Plan: Patient has history of chronic pain secondary to osteoarthritis and fibromyalgia. The patient uses MS Contin 50 mg p.o. 3 times daily at home. She also uses gabapentin 600 mg 3 times daily the patient will be continued on these medications as they seem to keep the patient's pain controlled. Currently the patient is not in any significant pain Qualifiers: Chronic pain type: chronic pain syndrome Qualified Code(s): G89.4 - Chronic pain syndrome (5) Hypothyroidism Conclusion/Plan: The patient does have a history of hypothyroidism and does take 237 mcg of Synthroid at day. We will continue the patient's home dose of Synthroid. I will check a TSH while the patient is hospitalized. Currently she appears to be stable. Qualifiers: Hypothyroidism type: unspecified Qualified Code(s): E03.9 - Hypothyroidism , unspecified - Lab Results Lab results reviewed: Yes Fish Bones: 12/29/17 17:23 12/29/17 17:23 Other Lab Results: Laboratory Results WBC 6.1 x10^3/uL (4.8-10.8) 12/29/17 17: RBC 4.76 10^6/uL (4.20-5.40) 12/29/17 17: Hgb 12.4 g/dL (12.0-16.0) 12/29/17 17: Hct 38.2 % (37.0-47.0) 12/29/17: MCV 80.2 fL (81.0-99.0) L 12/29/17 17:23 MCH 26.0 pg (27.0-31.0) L 12/29/17 17: MCHC 32.4 g/dL (32.0-36.0) 12/29/17: RDW 16.0 % (12.0-15.0) H 12/29/17 17: Plt Count 329 10^3/uL (130-450) 12/29/17 17: MPV 7.1 fL (7.9-10.8) L 04/09/18 17:23 Neut # 3.7 10^3/uL (1.5-6.6) 12/29/17 17:23 Lymph # 1.4 10^3/uL (1.5-3.5) L 12/29/17 17:23 [place] # 0.6 10^3/uL (0.0-1.0) 12/29/17 17:23 Eos # 0.3 10^3/uL (0.0-0.7) 12/29/17 17:23 Baso # 0.1 10^3/uL (0.0-0.1) 12/29/17 17:23 Absolute Nucleated RBC 0.00 x10^3/uL 12/29/17 17:23 Nucleated RBC % 0.0 /100WBC 12/29/17 17:23 PT 14.0 secs (9.9-12.6) H 12/29/17 19:18 INR 1.3 (0.8-1.2) H 12/29/17 19:18 APTT 39.0 secs (24.9-33.3) H 12/29/17 19:18 Sodium 135 mmol/L (135-145) 12/29/17 17:23 Potassium 4.3 mmol/L (3.5-5.0) 12/29/17 17:23 Chloride 98 mmol/L (101-111) L 12/29/17 17:23 Carbon Dioxide 28 mmol/L (21-32) 12/29/17 17:23 Anion Gap 9.0 (6-13) 12/29/17 17:23 BUN 13 mg/dL (6-20) 12/29/17 17:23 Creatinine 0.8 mg/dL (0.4-1.0) 12/29/17 17:23 Estimated GFR (MDRD) 72 (>89) L 12/29/17 17:23 Glucose 100 mg/dL (70-100) 12/29/17 17:23 POC Whole Bld Glucose 86 mg/dL (70 - 100) 12/30/17 00:13 Calcium 8.8 mg/dL (8.5-10.3) 12/29/17 17:23 Magnesium 2.1 mg/dL (1.7-2.8) 12/29/17 17:23 Total Bilirubin 0.4 mg/dL (0.2-1.0) 12/29/17 17:23 AST 23 IU/L (10-42) 12/29/17 17:23 ALT 16 IU/L (10-60) 12/29/17 17:23 Alkaline Phosphatase 75 IU/L (42-121) 12/29/17 17:23 Total Protein 7.4 g/dL (6.7-8.2) 12/29/17 17:23 Albumin 3.7 g/dL (3.2-5.5) 12/29/17 17:23 Globulin 3.7 g/dL (2.1-4.2) 12/29/17 17:23 Albumin/Globulin Ratio 1.0 (1.0-2.2) 12/29/17 17:23 Lipase < 10 U/L (22-51) L 12/29/17 17:23 Urine Color YELLOW 12/29/17 20:35 Urine Clarity CLEAR (CLEAR) 12/29/17 20:35 Urine pH 7.0 PH (5.0-7.5) 12/29/17 20:35 Ur Specific [place] 1.010 (1.002-1.030) 12/29/17 20:35 Urine Protein NEGATIVE mg/dL (NEGATIVE) 12/29/17 20:35 Urine Glucose (UA) NEGATIVE mg/dL (NEGATIVE) 12/29/17 20:35 Urine Ketones NEGATIVE mg/dL (NEGATIVE) 12/29/17 20:35 Urine Occult Blood NEGATIVE (NEGATIVE) 12/29/17 20:35 Urine Nitrite NEGATIVE (NEGATIVE) 12/29/17 20:35 Urine Bilirubin NEGATIVE (NEGATIVE) 12/29/17 20:35 Urine Urobilinogen 0.2 (NORMAL) E.U./dL (NORMAL) 12/29/17 20:35 Ur Leukocyte Esterase NEGATIVE (NEGATIVE) 12/29/17 20:35 Ur Microscopic Review NOT INDICATED 12/29/17 20:35 Urine Culture Comments NOT INDICATED 12/29/17 20:35 Last Dose Date UNKNOWN 12/29/17 17:23 Last Dose Time UNKNOWN 12/29/17 17:23 Digoxin 0.6 ng/mL 12/29/17 17:23 - Diagnostic Imaging Results Diagnostic Imaging Results: positive: Final report reviewed Diagnostic Imaging Results Comments: EXAM: [id number] XR/CXR1VW ([id number]) EXAM: CHEST RADIOGRAPHY EXAM DATE: 12/29/2017 08:24 PM. CLINICAL HISTORY: Cough/congestion. COMPARISON: 12/16/2016. TECHNIQUE: 1 view. FINDINGS: Lungs/Pleura: Streaky increased density in medial right base. Otherwise clear. No consolidation, effusion, or pneumothorax. Mediastinum: Mild cardiomegaly, probably unchanged. Upper lobe vessels not distended. Other: Osteopenia, degenerative changes. IMPRESSION: Medial right basilar infiltrate or atelectasis. EXAM: [id number] CT/HEADWO ([id number]) EXAM: CT HEAD EXAM DATE: 12/29/2017 07:06 PM. CLINICAL HISTORY: Trouble speaking and facial weakness x 2 days. COMPARISON: 12/02/2017. TECHNIQUE: Multiaxial CT images were obtained from the foramen magnum to the vertex. Reformats: Coronal. IV contrast: None. In accordance with CT protocol optimization, one or more of the following dose reduction techniques were utilized for this exam: automated exposure control, adjustment of mA and/or KV based on patient size, or use of iterative reconstructive technique. FINDINGS: Parenchyma: No intraparenchymal hemorrhage. No evidence of mass, midline shift, or CT findings of acute infarction. Lacunar infarction on the right. Graves-white differentiation is distinct. Diffuse chronic microangiopathic white matter changes. Extraaxial Spaces: Normal for age. No subdural or epidural collections. Ventricles: The ventricles and cortical sulci are enlarged, consistent with age- related tissue loss. Sinuses and orbits: Imaged paranasal sinuses, orbits, and mastoids show no significant abnormality. Bones: Unremarkable. Other: None. IMPRESSION: Atrophic and other chronic findings. No acute disease. - EKG Results EKG Interpreted Independently: Yes EKG Findings: Atrial fibrillation Core Measures - Anticipated LOS I expect patient to be DC'd or transferred within 96 hours.: Yes - DVT/VTE - Prophylaxis VTE/DVT Device ordered at admit?: Yes
[2017-12-29] MEDS: APIXABAN 2.5 MG TABLET PO SCH (23:59)
[2017-12-30] MEDS: SODIUM CHLORIDE FLUSH 0.9% 10 ML SYRINGE IVP SCH ×3 (00:12→20:40)
[2017-12-30 05:10] LABS: BASOPHILS # (AUTO) 0.1 10^3/uL (0.0-0.1); BASOPHILS % (AUTO) 1.4 %; EOSINOPHILS # (AUTO) 0.3 10^3/uL (0.0-0.7); EOSINOPHILS % (AUTO) 4.7 %; HGB - HEMOGLOBIN 12.2 g/dL (12.0-16.0); LYMPHOCYTES # (AUTO) 1.3 10^3/uL (1.5-3.5); LYMPHOCYTES % (AUTO) 21.1 %; MEAN CORPUSCULAR HEMOGLOBIN 26.2 pg (27.0-31.0); MEAN CORPUSCULAR HGB CONC 32.3 g/dL (32.0-36.0); MEAN CORPUSCULAR VOLUME 81.1 fL (81.0-99.0); MEAN PLATELET VOLUME 7.2 fL (7.9-10.8); MONOCYTES # (AUTO) 0.6 10^3/uL (0.0-1.0); MONOCYTES % (AUTO) 10.4 %; NEUTROPHILS # (AUTO) 3.8 10^3/uL (1.5-6.6); NEUTROPHILS % (AUTO) 62.4 %; PLT - PLATELET COUNT 264 10^3/uL (130-450); RED BLOOD COUNT 4.66 10^6/uL (4.20-5.40); RED CELL DISTRIBUTION WIDTH 15.9 % (12.0-15.0); WHITE BLOOD COUNT 6.1 x10^3/uL (4.8-10.8)
[2017-12-30 05:31] LABS: ALBUMIN 3.4 g/dL (3.2-5.5); ALKALINE PHOSPHATASE 68 IU/L (42-121); ALT ALANINE AMINOTRANSFERASE 16 IU/L (10-60); AST ASPARTATE AMINOTRANSFERASE 22 IU/L (10-42); BILIRUBIN,TOTAL 0.6 mg/dL (0.2-1.0); BUN - BLOOD UREA NITROGEN 10 mg/dL (6-20); CALCIUM 8.4 mg/dL (8.5-10.3); CARBON DIOXIDE - CO2 28 mmol/L (21-32); CHLORIDE 101 mmol/L (101-111); CHOL/HDL RATIO 5.6 (<4.4); CHOLESTEROL 190 mg/dL; CREATININE 0.7 mg/dL (0.4-1.0); GFR - MDRD 84 (>89); GLUCOSE 82 mg/dL (70-100); HDL CHOLESTEROL 34 mg/dL; LDL CHOLESTEROL,CALCULATED 112 mg/dL; LDL/HDL RATIO 3.3 (<4.4); SODIUM 136 mmol/L (135-145); TOTAL PROTEIN 6.8 g/dL (6.7-8.2); VLDL CHOLESTEROL 44 mg/dL
[2017-12-30] MEDS: MORPHINE ER 15 MG TABLET PO SCH ×3 (05:58→21:56)
[2017-12-30] MEDS: PANTOPRAZOLE 40 MG TABLET PO SCH (05:58)
[2017-12-30] MEDS: GABAPENTIN 300 MG CAPSULE PO SCH ×3 (05:59→21:56)
[2017-12-30] MEDS ORDERED: LEVOTHYROXINE 25 MCG TABLET PO SCH ×2 (07:00→19:46)
[2017-12-30] MEDS: SODIUM CHLORIDE 0.9% 1,000 ML IV SCH ×2 (07:44→23:54)
[2017-12-30] MEDS: LEVOTHYROXINE 100 MCG TABLET PO SCH ×3 (07:54→09:00)
[2017-12-30] MEDS: ASPIRIN CHEW 81 MG TABLET PO SCH (09:53)
[2017-12-30] MEDS: diltiaZEM CD 120 MG CAPSULE PO SCH ×2 (09:53→10:08)
[2017-12-30] MEDS: DIGOXIN 125 MCG TABLET PO SCH (09:53)
[2017-12-30] MEDS: APIXABAN 2.5 MG TABLET PO SCH ×2 (09:59→21:56)
[2017-12-30] MEDS: LOSARTAN 50 MG TABLET PO SCH (10:02)
[2017-12-30] MEDS: DULoxetine 30 MG CAPSULE PO SCH (10:02)
[2017-12-30] MEDS: POLYETHYLENE GLYCOL 3350 17 GM PACKET PO SCH (10:05)
[2017-12-30] MEDS: INSULIN GLARGINE 300 UNIT/3 ML PEN SUBQ SCH (10:09)
[2017-12-30] MEDS: METOPROLOL TARTRATE 50 MG TABLET PO SCH ×2 (10:21→21:57)
[2017-12-30] MEDS ORDERED: ACETAMINOPHEN/CODEINE 300 MG/30 MG TABLET PO PRN (11:09)
[2017-12-30] MEDS ORDERED: LEVOTHYROXINE 100 MCG TABLET PO SCH (12:00)
[2017-12-30] MEDS ORDERED: LEVOTHYROXINE 112 MCG TABLET PO SCH (12:00)
[2017-12-30] MEDS ORDERED: IOPAMIDOL-300 100 ML VIAL ONE (14:01)
[2017-12-30] MEDS ORDERED: diazePAM 5 MG TABLET PO ONE (14:32)
[2017-12-30] MEDS ORDERED: LORazepam 2 MG/ML VIAL IVP SCH (15:00)
[2017-12-30] MEDS ORDERED: IOPAMIDOL-300 100 ML VIAL IVP ONE (15:04)
--- NOTE | 2017-12-30 15:57 | CT Preliminary Report ---
Exam: CT HEAD ANGIO IMPRESSION: CT Head: 1. No acute intracranial abnormality. Specifically, no evidence of acute infarct, hemorrhage, or mass lesion. No abnormal enhancement. 2. Scattered cystic foci seen in the right cerebrum, corpus callosum, left abel, and left lateral cer ebellum. Findings are consistent with sequela of old lacunar infarct. 3. Mild patchy white matter hypodensity. This is nonspecific but typically secondary to small vessel ischemic change. CTA Head: 1. Multilevel stenosis seen throughout the intracranial circulation. This likely is secondary to athe rosclerotic change. Stenoses include: -Right A2/A3 junction with moderate stenosis. -Right M1 segment with mild stenosis proximally and severe stenosis distally. -Left A2 with mild stenosis and A3 with severe stenosis. -Left M2 with scattered mild stenosis. -Mild multilevel stenosis in the basilar artery. -Mild to moderate stenosis in the distal V4 segment of the right vertebral artery. -Moderate to severe stenosis at the origin of the right PICA. 2. Note is made of origin of the right [employer]GER. [facility] SITE ID: [id number]
--- NOTE | 2017-12-30 16:03 | CT Preliminary Report ---
Exam: CT NECK ANGIO IMPRESSION: 1. Carotid circulation is patent bilaterally. Mild atherosclerotic changes seen at the origin of the ICA, without significant stenosis. 2. The vertebral arteries are codominant. -Vascular calcification is seen at the origin of the right vertebral artery with likely moderate to s evere stenosis. Otherwise right vertebral artery widely patent. -Left vertebral artery is widely patent. [facility] SITE ID: [id number]
--- NOTE | 2017-12-30 16:08 | CT Report ---
EXAM: CT ANGIOGRAM NECK EXAM DATE: 12/30/2017 03:05 PM. CLINICAL HISTORY: Dysarthria, facial droop. COMPARISON: CT scan and CT angiogram of the head 12/30/2017.. TECHNIQUE: Routine axial helical imaging was performed from the skull base through the aortic arch. R econstructions: Routine multiplanar 3D MIP reconstructions. IV Contrast: 80 mL Isovue 300. Evaluation of arterial stenosis is based on a NASCET method of measurement. In accordance with CT protocol optimization, one or more of the following dose reduction techniques w ere utilized for this exam: automated exposure control, adjustment of mA and/or KV based on patient s ize, or use of iterative reconstructive technique. FINDINGS: Mild tortuosity and calcification of the aortic arch is seen. Normal three-vessel branching is seen. Scattered vascular calcification is present. The great vessels are patent. Right Carotid: The common carotid, internal carotid, and external carotid arteries are widely patent. No dissection, significant atherosclerotic plaque, or calcification identified. Mild atherosclerotic intimal thickening and calcification is seen at the origin of the ICA. No significant stenosis. Left Carotid: The common carotid, internal carotid, and external carotid arteries are widely patent. No dissection, significant atherosclerotic plaque, or calcification identified. Mild atherosclerotic intimal thickening and calcification is seen at the CCA bifurcation and origin of ICA. No significant stenosis. Vertebrals: Right Vertebral Artery: Marked calcification is seen at the origin and proximal V1 segment. There lik mignon is moderate to severe stenosis at this level. Otherwise cervical vertebral artery is patent and u nremarkable. Left Vertebral Artery: Patent and unremarkable. No significant stenosis. No dissection. Intracranial Circulation: (See report of CT angiogram performed same time.) Other: Patchy groundglass interstitial prominence is seen in the visualized upper lung zone. On the l owest cuts, prominent anterior mediastinal lymph nodes are seen lateral to the aortic arch. Mild prom inence to right paratracheal and paraesophageal lymph nodes in the superior mediastinum is seen as we ll. The muscle and fascial planes of the neck are unremarkable. No lytic or blastic bony lesions are seen. Scattered cervical spondylosis is noted. IMPRESSION: 1. Carotid circulation is patent bilaterally. Mild atherosclerotic change is seen at the origin of th e ICA, without significant stenosis. 2. The vertebral arteries are codominant. -Vascular calcification is seen at the origin of the right vertebral artery with likely moderate to s evere stenosis. Otherwise right vertebral artery widely patent. -Left vertebral artery is widely patent. [facility] Referring Provider Line: [phone] SITE ID: [id number]
--- NOTE | 2017-12-30 16:08 | CT Report ---
EXAM: CT ANGIOGRAM HEAD. CT SCAN OF THE HEAD WITHOUT AND WITH CONTRAST. EXAM DATE: 12/30/2017 03:05 PM CLINICAL HISTORY: Dysarthria, facial droop. COMPARISON: CT angiogram of the neck 12/30/2017. CT scan of the head 12/29/2017, 12/02/2017. MRI of t he brain 06/13/2017. TECHNIQUE: - CT Scan Head: Using a multidetector scanner, axial images were acquired from the foramen magnum to the skull vertex prior to and following contrast administration. - CT Angiogram: Using a multidetector scanner, high-resolution axial images were acquired from the sk ull base through vertex following rapid infusion of intravenous contrast. Reformats: Multiplanar MIP reformats were reconstructed. Nascet criteria used for stenosis measurement. IV Contrast: 80 mL Isovue 300. In accordance with CT protocol optimization, one or more of the following dose reduction techniques w ere utilized for this exam: automated exposure control, adjustment of mA and/or KV based on patient s ize, or use of iterative reconstructive technique. FINDINGS: NON-CONTRAST HEAD: Parenchyma: Scattered areas of patchy cystic change are once again noted. This is seen posterolateral ly in the left cerebellum, laterally in the left mid abel, right deep nuclear region at the junction of the head of the caudate nucleus and anterior limb of the internal capsule. Cystic foci are seen in the right anterior body of the corpus callosum and left posterior body of the corpus callosum. These are unchanged. Mild patchy white matter hypodensity is seen. No intracranial mass, hemorrhage, or abnormal enhancement. Extraaxial Spaces and Ventricles: No hydrocephalus. No abnormal extra-axial fluid collection or hemor rhage. Sinuses and orbits: Imaged paranasal sinuses, orbits, and mastoids show no significant abnormality. Bones: No evidence of fracture or calvarial defect. Other: None. POST-CONTRAST HEAD: No abnormal enhancement. CT ANGIOGRAM HEAD: RIGHT: Internal Carotid artery: Moderate atherosclerotic calcification is seen in the cavernous and proximal supracavernous segments. No significant stenosis. No aneurysm. Anterior Cerebral Artery: Patent. Moderate stenosis is seen at the junction of the A2 and A3 segments . Distal segments are patent and unremarkable. Middle Cerebral Artery: Mild irregularity and stenosis is seen in the proximal and mid M1 segment. Mo derate to severe stenosis is seen in the distal M1 segment. The M2 and candelabra branches are patent and unremarkable. Posterior Cerebral Artery: Patent without significant stenosis, aneurysm, or vascular malformation. F etal origin is noted as continuation of the P-comm. Posterior Communicating Artery: Patent. No aneurysm. Vertebral Artery: Patent. Mild stenosis is seen in the distal V4 segment. Moderate to severe stenosis is seen at the origin of the PICA from the mid V4 segment. LEFT: Internal Carotid artery: Moderate atherosclerotic calcification is seen in the cavernous and proximal supracavernous segments. No significant stenosis. No aneurysm. Anterior Cerebral Artery: Patent. Mild stenosis is seen in the mid A2 segment. Focal severe stenosis is seen in the proximal A3 segment with moderate stenosis in the mid A3 segment. Distal segments are patent and unremarkable. Middle Cerebral Artery: The M1 segment is patent. Mild stenosis is seen at bifurcation proximal M2 se gments. Mild stenosis is seen within posterior division M2 branch within the sylvian fissure as well. Distal candelabra branches are patent. Posterior Cerebral Artery: Patent without significant stenosis, aneurysm, or vascular malformation. Posterior Communicating Artery: Patent. No aneurysm. Small in caliber. Vertebral Artery: Patent without significant stenosis. No evidence of dissection. The PICA is unremar kable arising from the mid V4 segment. CENTRAL: Anterior Communicating Artery: Not well visualized. Basilar Artery: Patent. Mild irregularity with multilevel mild stenosis is seen throughout. No aneury sm. DURAL VENOUS SINUSES AND MAJOR CENTRAL VEINS: Patent. IMPRESSION: CT Head: 1. No acute intracranial abnormality. Specifically, no evidence of acute infarct, hemorrhage, or mass lesion. No abnormal enhancement. 2. Scattered cystic foci seen in the right cerebrum, corpus callosum, left abel, and left lateral cer ebellum. Findings are consistent with sequela of old lacunar infarct. 3. Mild patchy white matter hypodensity. This is nonspecific but typically secondary to small vessel ischemic change. CTA Head: 1. Multilevel stenosis seen throughout the intracranial circulation. This likely is secondary to athe rosclerotic change. Stenoses include: -Right A2/A3 junction with moderate stenosis. -Right M1 segment with mild stenosis proximally and severe stenosis distally. -Left A2 with mild stenosis and A3 with severe stenosis. -Left M2 with scattered mild stenosis. -Mild multilevel stenosis in the basilar artery. -Mild to moderate stenosis in the distal V4 segment of the right vertebral artery. -Moderate to severe stenosis at the origin of the right PICA. 2. Note is made of origin of the right [employer]. [facility] Referring Provider Line: [phone] SITE ID: [id number]
--- NOTE | 2017-12-30 17:22 | MRI Report ---
EXAM: MRI BRAIN WITHOUT CONTRAST EXAM DATE: 12/30/2017 03:36 PM. CLINICAL HISTORY: Dysarthria, facial droop. COMPARISON: Prior CT angiogram head and neck performed earlier today. Prior MRI brain 06/13/2017. TECHNIQUE: Multiplanar, multisequence T1-weighted and fluid-sensitive MR sequences of the brain were performed. Sequences optimized for routine evaluation. Other: None. IV Contrast: None. Findings: Relevant images are indicated (image number, series number). There is a 6-7 mm focus of diffusion restriction right posterior limb of the internal capsule, corres ponding low signal on ADC, increased signal seen on axial FLAIR consistent with subacute ischemic str norah. There is left peritrigonal 2.6 cm diffusion restriction, corresponding low signal on ADC, increa sed signal seen on axial FLAIR also consistent subacute ischemic change. There is no hemorrhage or ma ss effect. There is no hemosiderin deposition present in the brain. There is no hemorrhage, mass or midline shift. Multiple old strokes are present at lateral basal gang bucky, bilateral thalamus, bilateral internal capsule, left abel, bilateral cerebellum. Basal cisterns, bilateral IACs, bilateral Meckel's caves are clear. Orbital contents negative. Parana rahul sinuses, mastoid air cells unremarkable. There are normal expected vascular flow voids of the major arteries and veins. There are no suspiciou s marrow lesions. There is partial empty sella. Midbrain unremarkable. Craniocervical junction, limit ed evaluation upper cervical cord negative. Extraocular muscles, optic nerves, orbital apex, optic chiasm negative. Mild to moderate generalized brain atrophy, moderate dense scattered periventricular, subcortical whi te matter disease including dense pontine white matter disease. Impressions: 1. Multifocal areas of subacute ischemic stroke, in different vascular territories consistent with em bolic ischemic strokes. No hemorrhage or mass effect. 2. Multiple old prior strokes including bilateral basal ganglia, bilateral thalami, bilateral interna l capsule, left abel, bilateral cerebellum consistent with a history of embolic ischemic strokes. Cor relate with a central source such as cardiac etiology. Critical results: Findings discussed immediately with nurse practitioner Dior Morgan on 8 at 1720 hrs. [facility] Referring Provider Line: [phone] SITE ID: [id number]
--- NOTE | 2017-12-30 17:41 | PROVIDER PROGRESS NOTE ---
Assessment/Plan - Problem List (1) Cerebrovascular accident, embolic Qualifiers: Laterality of affected vessel: bilateral Assessment/Plan: As per a call from reading radiologist of MRI head, patient has suffered multiple embolic ischemic areas. Patient's symptoms are mildly improved since the time of admission, but not fully resolved. Patient takes Eliquis at home, but also takes a polypharmacy of medications that may be lessening the effectiveness of her anticoagulant thereby causing CVA's. A medication review was completed and showed no likely culprit to this incident. Plan: Allow B/P to remain elevated x 48 hours and plan for D/C home. (2) Impaired speech Qualifiers: Speech disturbance type: other speech disturbance Qualified Code(s): R47.89 - Other speech disturbances Assessment/Plan: According to the patient's daughter the patient has increasingly slurred speech compared to her baseline that began 2 days prior to admission. The patient also has had some difficulty with word finding, including diplopia and thought the TV looked crooked. The patient's CT head was negative for any acute changes , but brain MRI results were phoned by reading radiologist who noted multiple embolic areas of ischemia consistent with a cardiac cause. Patient continues to have impaired speech. Plan: Continue to monitor and allow time for slow responses. (3) Atrial fibrillation Qualifiers: Atrial fibrillation type: chronic Qualified Code(s): I48.2 - Chronic atrial fibrillation Assessment/Plan: Patient has history of chronic atrial fibrillation and is anticoagulated on Eliquis. She is rate controlled and takes both metoprolol and digoxin at home, which has been continued here. The patient's echocardiogram shows mild LV hypertrophy, an EF of 55-60%, an increased RVSP of 57mmHg as compared to a previous study on 12/17/16, and a negative PFO. The patient was monitored on telemetry overnight which showed controlled atrial fibrillation with rates in the 60-80's. Plan: Continue anticoagulant and start Spironolactone on discharge for increased right heart pressures. (4) Cognitive deficit due to old embolic stroke Assessment/Plan: Patient's daughter, Aleisha has noticed a steady decline in her mother's overall cognition mostly related to memory and thoughtful conversations. Plan: Continue to monitor. (5) Chronic pain Qualifiers: Chronic pain type: chronic pain syndrome Qualified Code(s): G89.4 - Chronic pain syndrome (6) Hypothyroidism Qualifiers: Hypothyroidism type: unspecified Qualified Code(s): E03.9 - Hypothyroidism , unspecified Assessment/Plan: The patient does have a history of hypothyroidism and does take 237 mcg of Synthroid daily. Patient is noted to be post-thyroidectomy. We will continue the patient's home dose of Synthroid. TSH was normal at 2.87. Plan: continue current plan. - Current Meds Current Meds: Current Medications Generic Name Dose Route Start Last Admin Trade Name Freq PRN Reason Stop Dose Admin Acetaminophen 650 mg 12/29/17 20:00 12/29/17 21:34 Tylenol PO 650 mg Q4HR PRN Administration Pain 1 to 4 Apixaban 5 mg 12/29/17 23:00 12/30/17 09:59 Eliquis PO 5 mg BID LAURYN Administration Aspirin 81 mg 12/30/17 09:00 12/30/17 09:53 [facility] [place] Aspirin PO 81 mg DAILY LAURYN Administration Digoxin 125 mcg 12/30/17 09:00 12/30/17 09:53 Lanoxin PO 125 mcg DAILY LAURYN Administration Diltiazem HCl 120 mg 12/30/17 09:00 12/30/17 10:08 Cardizem Cd PO Not Given DAILY LAURYN Duloxetine HCl 90 mg 12/30/17 09:00 12/30/17 10:02 Cymbalta PO 90 mg DAILY LAURYN Administration Gabapentin 600 mg 12/29/17 22:00 12/30/17 14:37 Neurontin PO 600 mg TID LAURYN Administration Sodium Chloride 1,000 mls @ 100 mls/hr 12/29/17 20:00 12/30/17 16:53 Normal Saline 0.9% IV 100 mls/hr .Q10H LAURYN Infusion Insulin Glargine 26 unit 12/30/17 09:00 12/30/17 10:09 Lantus Solostar SUBQ Not Given DAILY LAURYN Levothyroxine Sodium 200 mcg 12/29/17 23:30 12/30/17 09:00 Synthroid PO Not Given QDAC LAURYN Levothyroxine Sodium 37.5 mcg 12/30/17 07:00 12/30/17 08:01 Synthroid PO 37.5 mcg QDAC LAURYN Administration Losartan Potassium 25 mg 12/30/17 09:00 12/30/17 10:02 Cozaar PO 25 mg DAILY LAURYN Administration Metoprolol Tartrate 50 mg 12/29/17 21:00 12/30/17 10:21 Lopressor PO 50 mg BID LAURYN Administration Morphine Sulfate 15 mg 12/29/17 22:00 12/30/17 14:37 PO 15 mg TID LAURYN Administration Pantoprazole Sodium 40 mg 12/30/17 07:00 12/30/17 05:58 Protonix PO 40 mg QDAC LAURYN Administration Polyethylene Glycol 17 gm 12/30/17 09:00 12/30/17 10:05 Miralax PO Not Given DAILY LAURYN Sodium Chloride 10 ml 12/30/17 01:00 12/30/17 10:04 Normal Saline Flush 0.9% IVP Not Given 0100,0900,1700 LAURYN - Lab Result Lab results reviewed: Yes Fish Bone Diagrams: 12/31/17 05:20 12/31/17 05:20 - EKG Results EKG Interpreted Independently: Yes EKG Comparison: Unchanged from prior EKG - Diagnostic Imaging Results Diagnostic Imaging Results: Prelim report reviewed, Final report reviewed - Additional Planning Condition/Complexity: Stable My Orders: My Active Orders 12/30/17 Evaluate and Treat OT [OT] Routine 12/30/17 11:09 Acetaminophen/Cod 300/30 [Tylenol #3] 1 tab PO QID PRN 12/30/17 Dinner Soft Mechanical Diet [DIET] Consult/Specialty: Neurology (Contact was made with [facility] neurology at the time of admission.) Plan Discussed with:: Patient, Family Time Spent: 31-60 minutes Subjective - Subjective Patient Reports: Resting Comfortably, Fatigue Nursing Reports: No Complaints Objective Vital Signs: Vital Signs - 24 hr 12/29/17 12/30/17 12/30/17 21:35 00:24 05:09 Temperature 36.4 C L 36.3 C L 36.7 C Heart Rate [ 64 63 56 L Brachial] Respiratory 16 16 16 Rate Blood Pressure 170/106 H Blood Pressure 163/76 H 155/78 H [Right Brachial artery] Blood Pressure [Supine] O2 Saturation 94 93 92 12/30/17 12/30/17 12/30/17 07:59 10:21 12:00 Temperature 36.7 C 37.3 C Heart Rate [ 75 79 Brachial] Respiratory 18 18 Rate Blood Pressure 188/108 H Blood Pressure 199/96 H 181/86 H [Right Brachial artery] Blood Pressure [Supine] O2 Saturation 92 94 12/30/17 12/30/17 12/30/17 14:09 15:00 15:15 Temperature 36.9 C Heart Rate [ 105 H 70 66 Brachial] Respiratory 18 16 16 Rate Blood Pressure Blood Pressure 155/99 H [Right Brachial artery] Blood Pressure [Supine] O2 Saturation 94 97 96 12/30/17 12/30/17 12/30/17 15:30 15:45 16:11 Temperature 36.4 C L Heart Rate [ 80 68 68 Brachial] Respiratory 17 16 18 Rate Blood Pressure Blood Pressure 178/70 H [Right Brachial artery] Blood Pressure [Supine] O2 Saturation 98 97 91 L 12/30/17 16:20 Temperature Heart Rate [ Brachial] Respiratory Rate Blood Pressure Blood Pressure [Right Brachial artery] Blood Pressure 168/93 H [Supine] O2 Saturation Oxygen O2 Source Nasal cannula I&O (Last 24 Hrs): Intake and Output Totals x24h 12/28/17 12/29/17 12/30/17 23:59 23:59 23:59 Intake Total 240 2056.667 Output Total 450 1950 Balance -210 106.667 General: Alert, Oriented x3, No acute distress HEENT: Atraumatic, PERRLA Neck: Supple, No JVD Lymphatic: no adenopathy Neuro: Alert, Focal Deficits, Speech Slurred, Oriented Times 3 Cardiovascular: Other (irregular, alicja.) Respiratory: Chest non-tender, No respiratory distress, Breath sounds nml Abdomen: Normal bowel sounds, Soft Extremities: No clubbing, No tenderness/swelling, Other (chronic pedal edema, increased abdominal girth) Skin: No rashes, No breakdown, No significant lesion - Results Results: Laboratory Results WBC 6.1 x10^3/uL (4.8-10.8) 12/30/17 04:50 RBC 4.66 10^6/uL (4.20-5.40) 12/30/17 04:50 Hgb 12.2 g/dL (12.0-16.0) 12/30/17 04:50 Hct 37.8 % (37.0-47.0) 12/30/17 04:50 MCV 81.1 fL (81.0-99.0) 12/30/17 04:50 MCH 26.2 pg (27.0-31.0) L 12/30/17 04:50 MCHC 32.3 g/dL (32.0-36.0) 12/30/17 04:50 RDW 15.9 % (12.0-15.0) H 12/30/17 04:50 Plt Count 264 10^3/uL (130-450) 12/30/17 04:50 MPV 7.2 fL (7.9-10.8) L 12/30/17 04:50 Neut # 3.8 10^3/uL (1.5-6.6) 12/30/17 04:50 Lymph # 1.3 10^3/uL (1.5-3.5) L 12/30/17 04:50 [place] # 0.6 10^3/uL (0.0-1.0) 12/30/17 04:50 Eos # 0.3 10^3/uL (0.0-0.7) 12/30/17 04:50 Baso # 0.1 10^3/uL (0.0-0.1) 12/30/17 04:50 Absolute Nucleated RBC 0.00 x10^3/uL 12/30/17 04:50 Nucleated RBC % 0.0 /100WBC 12/30/17 04:50 PT 14.0 secs (9.9-12.6) H 12/29/17 19:18 INR 1.3 (0.8-1.2) H 12/29/17 19:18 APTT 39.0 secs (24.9-33.3) H 12/29/17 19:18 Sodium 136 mmol/L (135-145) 12/30/17 04:50 Potassium 4.0 mmol/L (3.5-5.0) 12/30/17 04:50 Chloride 101 mmol/L (101-111) 12/30/17 04:50 Carbon Dioxide 28 mmol/L (21-32) 12/30/17 04:50 Anion Gap 7.0 (6-13) 12/30/17 04:50 BUN 10 mg/dL (6-20) 12/30/17 04:50 Creatinine 0.7 mg/dL (0.4-1.0) 12/30/17 04:50 Estimated GFR (MDRD) 84 (>89) L 12/30/17 04:50 Glucose 82 mg/dL (70-100) 12/30/17 04:50 POC Whole Bld Glucose 128 mg/dL (70 - 100) H 12/30/17 16:51 Calcium 8.4 mg/dL (8.5-10.3) L 12/30/17 04:50 Magnesium 2.1 mg/dL (1.7-2.8) 12/29/17 17:23 Total Bilirubin 0.6 mg/dL (0.2-1.0) 12/30/17 04:50 AST 22 IU/L (10-42) 12/30/17 04:50 ALT 16 IU/L (10-60) 12/30/17 04:50 Alkaline Phosphatase 68 IU/L (42-121) 12/30/17 04:50 Total Protein 6.8 g/dL (6.7-8.2) 12/30/17 04:50 Albumin 3.4 g/dL (3.2-5.5) 12/30/17 04:50 Globulin 3.4 g/dL (2.1-4.2) 12/30/17 04:50 Albumin/Globulin Ratio 1.0 (1.0-2.2) 12/30/17 04:50 Triglycerides 219 mg/dL (-149) H 12/30/17 04:50 Cholesterol 190 mg/dL (-199) 12/30/17 04:50 LDL Cholesterol, Calc 112 mg/dL (-129) 12/30/17 04:50 VLDL Cholesterol 44 mg/dL 12/30/17 04:50 HDL Cholesterol 34 mg/dL (60-) L 12/30/17 04:50 LDL/HDL Ratio 3.3 (<4.4) 12/30/17 04:50 Cholesterol/HDL Ratio 5.6 (<4.4) 12/30/17 04:50 Lipase < 10 U/L (22-51) L 12/29/17 17:23 TSH 2.87 uIU/mL (0.34-5.60) 12/30/17 05:08 Urine Color YELLOW 12/29/17 20:35 Urine Clarity CLEAR (CLEAR) 12/29/17 20:35 Urine pH 7.0 PH (5.0-7.5) 12/29/17 20:35 Ur Specific [place] 1.010 (1.002-1.030) 12/29/17 20:35 Urine Protein NEGATIVE mg/dL (NEGATIVE) 12/29/17 20:35 Urine Glucose (UA) NEGATIVE mg/dL (NEGATIVE) 12/29/17 20:35 Urine Ketones NEGATIVE mg/dL (NEGATIVE) 12/29/17 20:35 Urine Occult Blood NEGATIVE (NEGATIVE) 12/29/17 20:35 Urine Nitrite NEGATIVE (NEGATIVE) 12/29/17 20:35 Urine Bilirubin NEGATIVE (NEGATIVE) 12/29/17 20:35 Urine Urobilinogen 0.2 (NORMAL) E.U./dL (NORMAL) 12/29/17 20:35 Ur Leukocyte Esterase NEGATIVE (NEGATIVE) 12/29/17 20:35 Ur Microscopic Review NOT INDICATED 12/29/17 20:35 Urine Culture Comments NOT INDICATED 12/29/17 20:35 Last Dose Date UNKNOWN 12/29/17 17:23 Last Dose Time UNKNOWN 12/29/17 17:23 Digoxin 0.6 ng/mL 12/29/17 17:23 - Procedures Procedures: Procedures DESTRUC-SHOULDER LES NEC (01/16/15) EXCISION OF ASCENDING COLON, ENDO (04/05/16) EXCISION OF ESOPHAGUS, ENDO, DIAGN (04/05/16) EXCISION OF STOMACH, ENDO, DIAGN (04/05/16) INSPECTION OF UPPER INTESTINAL TRACT, ENDO (04/17/16) REPAIR ASCENDING COLON, ENDO (04/17/16) TRANSFUSE NONAUT RED BLOOD CELLS IN PERIPH VEIN, PERC (04/17/16)
[2017-12-31] MEDS: APIXABAN 2.5 MG TABLET PO SCH ×2 (05:16→14:11)
[2017-12-31] MEDS: SODIUM CHLORIDE FLUSH 0.9% 10 ML SYRINGE IVP SCH ×3 (05:17→16:29)
[2017-12-31] MEDS: MORPHINE ER 15 MG TABLET PO SCH ×2 (05:17→14:11)
[2017-12-31] MEDS: GABAPENTIN 300 MG CAPSULE PO SCH ×2 (05:17→14:12)
[2017-12-31 05:55] LABS: BASOPHILS # (AUTO) 0.1 10^3/uL (0.0-0.1); BASOPHILS % (AUTO) 1.1 %; EOSINOPHILS # (AUTO) 0.3 10^3/uL (0.0-0.7); EOSINOPHILS % (AUTO) 4.5 %; HGB - HEMOGLOBIN 12.4 g/dL (12.0-16.0); MEAN CORPUSCULAR HGB CONC 32.1 g/dL (32.0-36.0); MEAN CORPUSCULAR VOLUME 80.9 fL (81.0-99.0); MEAN PLATELET VOLUME 7.1 fL (7.9-10.8); MONOCYTES # (AUTO) 0.7 10^3/uL (0.0-1.0); MONOCYTES % (AUTO) 10.8 %; NEUTROPHILS # (AUTO) 4.4 10^3/uL (1.5-6.6); NEUTROPHILS % (AUTO) 68.6 %; PLT - PLATELET COUNT 288 10^3/uL (130-450); RED BLOOD COUNT 4.77 10^6/uL (4.20-5.40); WHITE BLOOD COUNT 6.4 x10^3/uL (4.8-10.8)
[2017-12-31] MEDS: PANTOPRAZOLE 40 MG TABLET PO SCH (06:04)
[2017-12-31 06:07] LABS: ALBUMIN 3.5 g/dL (3.2-5.5); BILIRUBIN,TOTAL 0.6 mg/dL (0.2-1.0); CALCIUM 8.5 mg/dL (8.5-10.3); CREATININE 0.9 mg/dL (0.4-1.0)
[2017-12-31] MEDS ORDERED: SYNTHROID 137 MCG PO SCH (07:30)
[2017-12-31] MEDS ORDERED: SYNTHROID 100 MCG PO SCH (07:30)
[2017-12-31] MEDS: POLYETHYLENE GLYCOL 3350 17 GM PACKET PO SCH (08:50)
[2017-12-31] MEDS: METOPROLOL TARTRATE 50 MG TABLET PO SCH (08:50)
[2017-12-31] MEDS: DIGOXIN 125 MCG TABLET PO SCH (08:51)
[2017-12-31] MEDS: LOSARTAN 50 MG TABLET PO SCH (08:51)
[2017-12-31] MEDS: diltiaZEM CD 120 MG CAPSULE PO SCH (08:51)
[2017-12-31] MEDS: ASPIRIN CHEW 81 MG TABLET PO SCH (08:52)
[2017-12-31] MEDS: DULoxetine 30 MG CAPSULE PO SCH (08:52)
[2017-12-31] MEDS: SODIUM CHLORIDE 0.9% 1,000 ML IV SCH (08:56)
[2017-12-31] MEDS: INSULIN GLARGINE 300 UNIT/3 ML PEN SUBQ SCH (08:58)
--- NOTE | 2017-12-31 15:55 | Discharge Plan ---
Discharge Plan Disposition: Home, Self Care Condition: Good Prescriptions: Spironolactone 25 mg PO DAILY #30 tablet Diet: Regular Activity Restrictions: No Restrictions Shower Restrictions: No Driving Restrictions: Yes Weight Bearing: Full Weight Instruction Topics: Stroke Sx, Stroke Self Care Additional Instructions or Follow Up instructions: You were admitted for further evaluation of stroke symptoms. You were found to have subacute (newer ~in the recent past) multi-focal (several) areas of ischemia that are noted to be caused by a cardiac source. An echocardiogram was completed as part of the CVA work up and you were found to have worsening right sided heart pressures since your last exam on 12/17/16. This is called pulmonary hypertension and the best treatment for this is with a gentle diuretic medication called Spironolactone. This was not able to be started early in your hospital stay due to the need to keep your blood pressure higher. Ok to start in AM. You have a previous diagnoses of obstructive sleep apnea, which is still evident based on the echocardiogram result. Further evaluation of this is recommended. One of your main complaints with this event is your change in vision. I recommend a neuro-opthalmolgist who specializes in people who have had strokes that influence their vision. A walking oxygen test was completed, and no need for home oxygen. Although this was a normal test, the sleep center may recommend oxygen only while sleeping since a mask has been intolerable in the past. Please see your PCP within one week of this stay. No Smoking: If you smoke, Please STOP! Call for help.
--- NOTE | 2017-12-31 17:06 | DISCHARGE SUMMARY ---
Discharge Summary Admit Date: 12/29/17 Discharge Date: 12/31/17 Discharging Provider: KERLINE Veronica Primary Care Provider: Josephine Noriega Code Status: Attempt Resuscitation Condition at Discharge: Good Discharge Disposition: 01 Home, Self Care - DIAGNOSES Admission Diagnoses: Impaired speech (R47.9) Atrial fibrillation (I48.91) Type 2 diabetes mellitus without complications (E11.9) Chronic pain (G89.29) Hypothyroidism (E03.9) Discharge Diagnoses with Status of Each Condition: Impaired speech (R47.9)- improved, stable. Atrial fibrillation (I48.91)- chronic, controlled. Chronic pain (G89.29)- chronic, stable. Hypothyroidism (E03.9)- chronic, stable. 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 MONO (obstructive sleep apnea) (G47.33)- chronic, noncompliant due to inability to tolerate face mask. - HPI History of Present Illness: HPI as per Dr. Ornelas: Patient is a very pleasant 68-year-old female with a past medical history significant for multiple strokes including 2 in 2003, one in 2005 and a recent stroke in 2017, atrial fibrillation on Eliquis, diabetes, hypothyroidism, anemia , bilateral lower extremity edema, hypertension, osteoarthritis, fibromyalgia and chronic pain who presented to the emergency department with a chief complaint of slurred speech. The patient states that she was in her normal state of health until just 2 days ago when she was noted to have slurred speech. The patient's daughter states that she noticed that her mother was slurring her words more than normal. She also noticed that she was having a difficult time expressing herself. The patient did not want to come to the emergency department at that point so they just let her rest and she seemed to do better. The patient's daughter states that she called her mother at around 4 PM today and the patient told her daughter that the TV appeared to be crooked. This alarmed the patient's daughter and she told the patient that she needs to go to the emergency department. The patient's daughter has also noticed that the patient has been having difficulty chewing her food and swallowing. She states that she will often noticed that her mom is choking on food. The patient states that she did feel very drowsy and sleepy today. She also stated that she was having trouble handling things in her hands. The patient's daughter states that the patient recently has been having issues with her fine motor coordination. A lot of the patient's issues are chronic from her previous strokes but things seem to be acutely worse over the last couple days and that was the daughter's concern. The patient's daughter is also concerned that the patient is becoming more forgetful and that she may be developing dementia. The patient does admit to a headache. She states that it is a right sided headache. She does not have any photophobia or phonophobia. She also denies any nausea or vomiting. The patient denies any fevers, chills, runny nose, sore throat, nasal congestion , neck pain, chest pain, shortness of air, orthopnea, PND, increased lower extremity swelling, abdominal pain, diarrhea, constipation, joint pain, joint swelling, muscle aches, neck stiffness, recent unintentional weight loss, changes in her appetite, polyuria, polydipsia, hair loss, new skin rashes, night sweats. On presentation to the emergency department the patient was afebrile heart rate was within normal limits, she was slightly hypertensive but otherwise was not in any respiratory distress. The patient's lab work revealed a normal CBC, INR of 1.3, normal electrolytes, normal urine analysis and a digoxin level of 0.6. The patient did undergo a chest x-ray which revealed a medial right basilar infiltrate or atelectasis but given her lack of respiratory symptoms and lack of fever as well as lack of leukocytosis the patient was not treated for pneumonia. The patient also underwent a CT of her head which showed atrophic and other chronic findings without any evidence of acute disease. The patient' s EKG showed that the patient was in chronic atrial fibrillation. The patient was placed in observation for further neurologic workup including neuro checks and MRI evaluation. - HOSPITAL COURSE Hospital Course: The following diagnoses were prevalent during this hospital stay: (1) Cerebrovascular accident, embolic- As per a call from reading radiologist of MRI head, patient has suffered multiple embolic ischemic areas. Patient's symptoms are mildly improved since the time of admission, but not fully resolved. Patient takes Eliquis at home, but also takes a polypharmacy of medications that may be lessening the effectiveness of her anticoagulant thereby causing CVA's. A medication review was completed and showed no likely culprit to this incident. The patient's B/P was passively allowed to remain elevated x 48 hours. The patient underwent both speech and physical therapy evaluations, of which the patient passed with recommendations. She is to be offered soft foods, and thin liquids as per speech, and extra assistance at home may be helpful as per PT. (2) Impaired speech- According to the patient's daughter the patient has increasingly slurred speech compared to her baseline that began 2 days prior to admission. The patient also has had some difficulty with word finding, including diplopia and thought the TV looked crooked. The patient's CT head was negative for any acute changes, but brain MRI results were phoned by reading radiologist who noted multiple embolic areas of ischemia consistent with a cardiac cause. Patient continues to have impaired speech at the time of discharge. (3) Atrial fibrillation- Patient has history of chronic atrial fibrillation and is anticoagulated on Eliquis. She is rate controlled and takes both metoprolol and digoxin at home, which has been continued here. The patient's echocardiogram shows mild LV hypertrophy, an EF of 55-60%, an increased RVSP of 57mmHg as compared to a previous study on 12/17/16, and a negative PFO. The patient was monitored on telemetry overnight which showed controlled atrial fibrillation with rates in the 60-80's. Patient was continued on anticoagulants and was started on Spironolactone at discharge for increased right heart pressures. 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 (5) Chronic pain- Patient is prescribed morphine and gabapentin at home an this has been continued while in the hospital. (6) Hypothyroidism- The patient does have a history of hypothyroidism and does take 237 mcg of Synthroid daily. Patient is noted to be post-thyroidectomy. We will continue the patient's home dose of Synthroid. TSH was normal at 2.87. Disposition: Patient was discharged home with daughter, where she stays independently with frequent family participation and contact. - ALLERGIES Allergies/Adverse Reactions: Allergies Allergy/AdvReac Type Severity Reaction Status Date / Time albuterol Allergy Unknown Verified 04/17/16 14:44 cortisone Allergy Edema Verified 04/17/16 14:42 latex Allergy Hives Verified 04/17/16 14:45 prednisone Allergy Edema Verified 04/17/16 07:48 Uwgfohr-Ppr-Gks Reductase Allergy Unknown Verified 04/17/16 07:48 Inhibitor oxycodone AdvReac Dizziness Verified 04/17/16 14:45 - MEDICATIONS Home Medications: Ambulatory Orders Medication Instructions Recorded Confirmed Metoprolol Tartrate 100 mg PO BID 08/07/14 12/30/17 Morphine Sulfate [Ms Contin] 15 mg PO TID 05/31/15 12/30/17 metFORMIN [Glucophage] 1,000 mg PO BIDWM 02/08/16 12/30/17 Levothyroxine Sodium 100 mcg PO QDAC 12/16/16 12/30/17 Levothyroxine Sodium 137 mcg PO QDAC 12/16/16 12/30/17 Acetaminophen/Cod 300/30 [Tylenol 1 tab PO QID PRN #0 tablet 12/17/16 12/30/17 #3] Digoxin [Lanoxin] 125 mcg PO DAILY tablet 12/17/16 12/30/17 Gabapentin [Neurontin] 300 mg PO TID 02/26/17 12/30/17 Insulin Glargine,Hum.rec.anlog 26 units SQ DAILY 02/26/17 12/30/17 [Lantus Solostar] Losartan Potassium 25 mg PO DAILY 02/26/17 12/30/17 Aspirin 81 mg PO DAILY 05/12/17 12/30/17 DULoxetine [Cymbalta] 90 mg PO DAILY 05/12/17 12/30/17 Apixaban [Eliquis] 5 mg PO BID 12/30/17 12/30/17 Calcium Carbonate [Tums (Calcium 500 mg PO Q4-6H PRN 12/30/17 12/30/17 Carbonate 500mg)] Furosemide 20 mg PO Q2D 12/30/17 12/30/17 Magnesium Oxide 500 mg PO BID 12/30/17 12/30/17 Multivitamin [Theragran] 1 tab PO BID 12/30/17 12/30/17 Nitrofurantoin Macrocrystal 50 mg PO DAILY 12/30/17 12/30/17 [Nitrofurantoin] Spironolactone 25 mg PO DAILY #30 tablet 12/31/17 - PHYSICAL EXAM AT DISCHARGE General Appearance: positive: No acute distress, Alert Eyes Bilateral: positive: Normal inspection, PERRL, EOMI ENT: positive: ENT inspection nml, Pharynx nml, No signs of dehydration Neck: positive: Nml inspection, No JVD, Stiff neck Respiratory: positive: Chest non-tender, No respiratory distress, Breath sounds nml Cardiovascular: positive: Irregularly irregular, Systolic murmur, Decreased pulse(s) Peripheral Pulses: positive: 1+ Abdomen: positive: Non-tender, No organomegaly, Nml bowel sounds, Other (rounded ) Back: positive: Nml inspection Skin: positive: No rash, Warm, Dry Extremities: positive: Non-tender, Full ROM, Nml appearance, Pedal edema Neurologic/Psychiatric: positive: Oriented x3, CN's nml (2-12), Weakness, Sensory loss, Slurred/abnml speech, Depressed mood/affect Reflexes: Bicep (R): 2+, Bicep (L): 2+ - LABS Result Diagrams: 12/31/17 05:20 12/31/17 05:20 - DIAGNOSTIC IMAGING Diagnostic Imaging Results: Final report reviewed Diagnostic Imaging Results Comments: EXAM: CHEST RADIOGRAPHY EXAM DATE: 12/29/2017 08:24 PM. CLINICAL HISTORY: Cough/congestion. COMPARISON: 12/16/2016. TECHNIQUE: 1 view. FINDINGS: Lungs/Pleura: Streaky increased density in medial right base. Otherwise clear. No consolidation, effusion, or pneumothorax. Mediastinum: Mild cardiomegaly, probably unchanged. Upper lobe vessels not distended. Other: Osteopenia, degenerative changes. IMPRESSION: Medial right basilar infiltrate or atelectasis. EXAM: CT HEAD EXAM DATE: 12/29/2017 07:06 PM. CLINICAL HISTORY: Trouble speaking and facial weakness x 2 days. COMPARISON: 12/02/2017. TECHNIQUE: Multiaxial CT images were obtained from the foramen magnum to the vertex. Reformats: Coronal. IV contrast: None. In accordance with CT protocol optimization, one or more of the following dose reduction techniques were utilized for this exam: automated exposure control, adjustment of mA and/or KV based on patient size, or use of iterative reconstructive technique. FINDINGS: Parenchyma: No intraparenchymal hemorrhage. No evidence of mass, midline shift, or CT findings of acute infarction. Lacunar infarction on the right. Graves-white differentiation is distinct. Diffuse chronic microangiopathic white matter changes. Extraaxial Spaces: Normal for age. No subdural or epidural collections. Ventricles: The ventricles and cortical sulci are enlarged, consistent with age- related tissue loss. Sinuses and orbits: Imaged paranasal sinuses, orbits, and mastoids show no significant abnormality. Bones: Unremarkable. Other: None. IMPRESSION: Atrophic and other chronic findings. No acute disease. EXAM: CT ANGIOGRAM HEAD. CT SCAN OF THE HEAD WITHOUT AND WITH CONTRAST. EXAM DATE: 12/30/2017 03:05 PM CLINICAL HISTORY: Dysarthria, facial droop. COMPARISON: CT angiogram of the neck 12/30/2017. CT scan of the head 12/29/2017 , 12/02/2017. MRI of the brain 06/13/2017. TECHNIQUE: - CT Scan Head: Using a multidetector scanner, axial images were acquired from the foramen magnum to the skull vertex prior to and following contrast administration. - CT Angiogram: Using a multidetector scanner, high- resolution axial images were acquired from the skull base through vertex following rapid infusion of intravenous contrast. Reformats: Multiplanar MIP reformats were reconstructed. Nascet criteria used for stenosis measurement. IV Contrast: 80 mL Isovue 300. In accordance with CT protocol optimization, one or more of the following dose reduction techniques were utilized for this exam: automated exposure control, adjustment of mA and/or KV based on patient size, or use of iterative reconstructive technique. FINDINGS: NON-CONTRAST HEAD: Parenchyma: Scattered areas of patchy cystic change are once again noted. This is seen posterolaterally in the left cerebellum, laterally in the left mid abel, right deep nuclear region at the junction of the head of the caudate nucleus and anterior limb of the internal capsule. Cystic foci are seen in the right anterior body of the corpus callosum and left posterior body of the corpus callosum. These are unchanged. Mild patchy white matter hypodensity is seen. No intracranial mass, hemorrhage, or abnormal enhancement. Extraaxial Spaces and Ventricles: No hydrocephalus. No abnormal extra-axial fluid collection or hemorrhage. Sinuses and orbits: Imaged paranasal sinuses, orbits, and mastoids show no significant abnormality. Bones: No evidence of fracture or calvarial defect. Other: None. POST-CONTRAST HEAD: No abnormal enhancement. CT ANGIOGRAM HEAD: RIGHT: Internal Carotid artery: Moderate atherosclerotic calcification is seen in the cavernous and proximal supracavernous segments. No significant stenosis. No aneurysm. Anterior Cerebral Artery: Patent. Moderate stenosis is seen at the junction of the A2 and A3 segments. Distal segments are patent and unremarkable. Middle Cerebral Artery: Mild irregularity and stenosis is seen in the proximal and mid M1 segment. Moderate to severe stenosis is seen in the distal M1 segment. The M2 and candelabra branches are patent and unremarkable. Posterior Cerebral Artery: Patent without significant stenosis, aneurysm, or vascular malformation. origin is noted as continuation of the P-comm. Posterior Communicating Artery: Patent. No aneurysm. Vertebral Artery: Patent. Mild stenosis is seen in the distal V4 segment. Moderate to severe stenosis is seen at the origin of the PICA from the mid V4 segment. LEFT: Internal Carotid artery: Moderate atherosclerotic calcification is seen in the cavernous and proximal supracavernous segments. No significant stenosis. No aneurysm. Anterior Cerebral Artery: Patent. Mild stenosis is seen in the mid A2 segment. Focal severe stenosis is seen in the proximal A3 segment with moderate stenosis in the mid A3 segment. Distal segments are patent and unremarkable. Middle Cerebral Artery: The M1 segment is patent. Mild stenosis is seen at bifurcation proximal M2 segments. Mild stenosis is seen within posterior division M2 branch within the sylvian fissure as well. Distal candelabra branches are patent. Posterior Cerebral Artery: Patent without significant stenosis, aneurysm, or vascular malformation. Posterior Communicating Artery: Patent. No aneurysm. Small in caliber. Vertebral Artery: Patent without significant stenosis. No evidence of dissection. The PICA is unremarkable arising from the mid V4 segment. CENTRAL: Anterior Communicating Artery: Not well visualized. Basilar Artery: Patent. Mild irregularity with multilevel mild stenosis is seen throughout. No aneurysm. DURAL VENOUS SINUSES AND MAJOR CENTRAL VEINS: Patent. IMPRESSION: CT Head: 1. No acute intracranial abnormality. Specifically, no evidence of acute infarct , hemorrhage, or mass lesion. No abnormal enhancement. 2. Scattered cystic foci seen in the right cerebrum, corpus callosum, left abel , and left lateral cerebellum. Findings are consistent with sequela of old lacunar infarct. 3. Mild patchy white matter hypodensity. This is nonspecific but typically secondary to small vessel ischemic change. CTA Head: 1. Multilevel stenosis seen throughout the intracranial circulation. This likely is secondary to atherosclerotic change. Stenoses include: -Right A2/A3 junction with moderate stenosis. -Right M1 segment with mild stenosis proximally and severe stenosis distally. -Left A2 with mild stenosis and A3 with severe stenosis. -Left M2 with scattered mild stenosis. -Mild multilevel stenosis in the basilar artery. -Mild to moderate stenosis in the distal V4 segment of the right vertebral artery. -Moderate to severe stenosis at the origin of the right PICA. 2. 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 EXAM: CT ANGIOGRAM NECK EXAM DATE: 12/30/2017 03:05 PM. CLINICAL HISTORY: Dysarthria, facial droop. COMPARISON: CT scan and CT angiogram of the head 12/30/2017.. TECHNIQUE: Routine axial helical imaging was performed from the skull base through the aortic arch. Reconstructions: Routine multiplanar 3D MIP reconstructions. IV Contrast: 80 mL Isovue 300. Evaluation of arterial stenosis is based on a NASCET method of measurement. In accordance with CT protocol optimization, one or more of the following dose reduction techniques were utilized for this exam: automated exposure control, adjustment of mA and/or KV based on patient size, or use of iterative reconstructive technique. FINDINGS: Mild tortuosity and calcification of the aortic arch is seen. Normal three-vessel branching is seen. Scattered vascular calcification is present. The great vessels are patent. Right Carotid: The common carotid, internal carotid, and external carotid arteries are widely patent. No dissection, significant atherosclerotic plaque, or calcification identified. Mild atherosclerotic intimal thickening and calcification is seen at the origin of the ICA. No significant stenosis. Left Carotid: The common carotid, internal carotid, and external carotid arteries are widely patent. No dissection, significant atherosclerotic plaque, or calcification identified. Mild atherosclerotic intimal thickening and calcification is seen at the CCA bifurcation and origin of ICA. No significant stenosis. Vertebrals: Right Vertebral Artery: Marked calcification is seen at the origin and proximal V1 segment. There likely is moderate to severe stenosis at this level. Otherwise cervical vertebral artery is patent and unremarkable. Left Vertebral Artery: Patent and unremarkable. No significant stenosis. No dissection. Intracranial Circulation: (See report of CT angiogram performed same time.) Other: Patchy groundglass interstitial prominence is seen in the visualized upper lung zone. On the lowest cuts, prominent anterior mediastinal lymph nodes are seen lateral to the aortic arch. Mild prominence to right paratracheal and paraesophageal lymph nodes in the superior mediastinum is seen as well. The muscle and fascial planes of the neck are unremarkable. No lytic or blastic bony lesions are seen. Scattered cervical spondylosis is noted. IMPRESSION: 1. Carotid circulation is patent bilaterally. Mild atherosclerotic change is seen at the origin of the ICA, without significant stenosis. 2. The vertebral arteries are codominant. -Vascular calcification is seen at the origin of the right vertebral artery with likely moderate to severe stenosis. Otherwise right vertebral artery widely patent. -Left vertebral artery is widely patent. EXAM: MRI BRAIN WITHOUT CONTRAST EXAM DATE: 12/30/2017 03:36 PM. CLINICAL HISTORY: Dysarthria, facial droop. COMPARISON: Prior CT angiogram head and neck performed earlier today. Prior MRI brain 06/13/2017. TECHNIQUE: Multiplanar, multisequence T1-weighted and fluid-sensitive MR sequences of the brain were performed. Sequences optimized for routine evaluation. Other: None. IV Contrast: None. Findings: Relevant images are indicated (image number, series number). There is a 6-7 mm focus of diffusion restriction right posterior limb of the internal capsule, corresponding low signal on ADC, increased signal seen on axial FLAIR consistent with subacute ischemic stroke. There is left peritrigonal 2.6 cm diffusion restriction, corresponding low signal on ADC, increased signal seen on axial FLAIR also consistent subacute ischemic change. There is no hemorrhage or mass effect. There is no hemosiderin deposition present in the brain. There is no hemorrhage, mass or midline shift. Multiple old strokes are present at lateral basal ganglia, bilateral thalamus, bilateral internal capsule, left abel, bilateral cerebellum. Basal cisterns, bilateral IACs, bilateral Meckel's caves are clear. Orbital contents negative. Paranasal sinuses, mastoid air cells unremarkable. There are normal expected vascular flow voids of the major arteries and veins. There are no suspicious marrow lesions. There is partial empty sella. Midbrain unremarkable. Craniocervical junction, limited evaluation upper cervical cord negative. Extraocular muscles, optic nerves, orbital apex, optic chiasm negative. Mild to moderate generalized brain atrophy, moderate dense scattered periventricular, subcortical white matter disease including dense pontine white matter disease. Impressions: 1. Multifocal areas of subacute ischemic stroke, in different vascular territories consistent with embolic ischemic strokes. No hemorrhage or mass effect. 2. Multiple old prior strokes including bilateral basal ganglia, bilateral thalami, bilateral internal capsule, left abel, bilateral cerebellum consistent with a history of embolic ischemic strokes. Correlate with a central source such as cardiac etiology. - FOLLOW UP Follow Up: Disposition: Home, Self Care Condition: Good Prescriptions: Spironolactone 25 mg PO DAILY #30 tablet Diet: Regular Activity Restrictions: No Restrictions Shower Restrictions: No Driving Restrictions: Yes Weight Bearing: Full Weight Instruction Topics: Stroke Sx, Stroke Self Care Additional Instructions or Follow Up instructions: You were admitted for further evaluation of stroke symptoms. You were found to have subacute (newer ~in the recent past) multi-focal (several) areas of ischemia that are noted to be caused by a cardiac source. An echocardiogram was completed as part of the CVA work up and you were found to have worsening right sided heart pressures since your last exam on 12/17/16. This is called pulmonary hypertension and the best treatment for this is with a gentle diuretic medication called Spironolactone. This was not able to be started early in your hospital stay due to the need to keep your blood pressure higher. Ok to start in AM. You have a previous diagnoses of obstructive sleep apnea, which is still evident based on the echocardiogram result. Further evaluation of this is recommended. One of your main complaints with this event is your change in vision. I recommend a neuro-opthalmolgist who specializes in people who have had strokes that influence their vision. A walking oxygen test was completed, and no need for home oxygen. Although this was a normal test, the sleep center may recommend oxygen only while sleeping since a mask has been intolerable in the past. Please see your PCP within one week of this stay. - TIME SPENT Time Spent in Discharge (Minutes): 60
[2017-12-31 18:03] VITALS: BP 160/86
== END 2017-12-31 18:51 | disposition home or self-care (01) | DRG 66 ==
LOC: ED 17:04 → OBS 19:55 → OBSVTOIN 12-30 18:45 → MS2 12-30 20:19
PROVIDERS: ADMIT Internal Medicine; ATTEND Nurse Practitioner
DX: I63.9 Cerebral infarction, unspecified (principal); R29.703 NIHSS score 3; R47.81 Slurred speech; R13.10 Dysphagia, unspecified; I69.322 Dysarthria following cerebral infarction; I69.354 Hemiplegia and hemiparesis following cerebral infarction affecting left non-dominant side; H53.2 Diplopia; I27.20 Pulmonary hypertension, unspecified; I48.2 Chronic atrial fibrillation; M19.90 Unspecified osteoarthritis, unspecified site; E11.49 Type 2 diabetes mellitus with other diabetic neurological complication; M79.7 Fibromyalgia; K21.9 Gastro-esophageal reflux disease without esophagitis; G89.29 Other chronic pain; I11.9 Hypertensive heart disease without heart failure; G89.4 Chronic pain syndrome; F32.9 Major depressive disorder, single episode, unspecified; E11.51 Type 2 diabetes mellitus with diabetic peripheral angiopathy without gangrene; E89.0 Postprocedural hypothyroidism; F41.9 Anxiety disorder, unspecified; F40.240 Claustrophobia; G47.33 Obstructive sleep apnea (adult) (pediatric); I69.311 Memory deficit following cerebral infarction; Z87.11 Personal history of peptic ulcer disease; I69.318 Other symptoms and signs involving cognitive functions following cerebral infarction; Z79.82 Long term (current) use of aspirin; Z77.22 Contact with and (suspected) exposure to environmental tobacco smoke (acute) (chronic); Z88.8 Allergy status to other drugs, medicaments and biological substances; Z91.19 Patient's noncompliance with other medical treatment and regimen; Z79.01 Long term (current) use of anticoagulants; Z79.899 Other long term (current) drug therapy; Z79.891 Long term (current) use of opiate analgesic; Z79.4 Long term (current) use of insulin
CPT/HCPCS: 36415; 70450; 70496; 70498; 70551; 71045; 80053; 80061; 80162; 81001; 81003; 83690; 83721; 83735; 84443; 85025; 85610; 85730; 87086; 93005; 93306; 94761; 96360; 96361; 99284; 99285

== ENCOUNTER 2018-01-07 12:42 | Emergency (ER) | payer MEDICARE, MEDICAID ==
--- NOTE | 2018-01-07 13:27 | ED Physician Documentation ---
PD HPI MAJOR TRAUMA - Stated complaint Stated Complaint: GLF - Chief complaint Chief Complaint: Ext Problem - History obtained from History obtained from: Patient, Family - History of Present Illness Mechanism of injury: Fell (This is a 67-year-old woman who just went to [facility] last night for help. She evidently fell while trying to go to the bathroom last night and is not sure if she hit her head but she does have a left -sided headache and neck pain. She also has some bruising on both arms and severe pain of the tailbone. She is able to walk and bear weight. She is anticoagulated for atrial fibrillation on Eliquis.) Review of Systems Constitutional: reports: Reviewed and negative Cardiac: denies: Chest pain / pressure, Palpitations Respiratory: denies: Dyspnea, Cough GI: denies: Abdominal Pain, Nausea, Vomiting PD PAST MEDICAL HISTORY - Past Medical History Cardiovascular: Atrial fibrillation Respiratory: Asthma Neuro: CVA, TIA Endocrine/Autoimmune: Type 2 diabetes GI: GERD, GI bleed, Ulcers : Incontinence, Chronic bladder infection HEENT: Chronic vision loss Psych: Depression, Anxiety, Claustrophobia Musculoskeletal: Osteoarthritis, Fibromyalgia Derm: None - Past Surgical History Past Surgical History: Yes General: Bowel surgery, Colonoscopy Ortho: Rotator cuff repair /[employer]GER: Hysterectomy HEENT: Cataracts - Present Medications Home Medications: Ambulatory Orders Medication Instructions Recorded Confirmed Metoprolol Tartrate 100 mg PO BID 08/07/14 12/30/17 Morphine Sulfate [Ms Contin] 15 mg PO TID 05/31/15 12/30/17 metFORMIN [Glucophage] 1,000 mg PO BIDWM 02/08/16 12/30/17 Levothyroxine Sodium 100 mcg PO QDAC 12/16/16 12/30/17 Levothyroxine Sodium 137 mcg PO QDAC 12/16/16 12/30/17 Acetaminophen/Cod 300/30 [Tylenol 1 tab PO QID PRN #0 tablet 12/17/16 12/30/17 #3] Digoxin [Lanoxin] 125 mcg PO DAILY tablet 12/17/16 12/30/17 Gabapentin [Neurontin] 300 mg PO TID 02/26/17 12/30/17 Insulin Glargine,Hum.rec.anlog 26 units SQ DAILY 02/26/17 12/30/17 [Lantus Solostar] Losartan Potassium 25 mg PO DAILY 02/26/17 12/30/17 Aspirin 81 mg PO DAILY 05/12/17 12/30/17 DULoxetine [Cymbalta] 90 mg PO DAILY 05/12/17 12/30/17 Apixaban [Eliquis] 5 mg PO BID 12/30/17 12/30/17 Calcium Carbonate [Tums (Calcium 500 mg PO Q4-6H PRN 12/30/17 12/30/17 Carbonate 500mg)] Furosemide 20 mg PO Q2D 12/30/17 12/30/17 Magnesium Oxide 500 mg PO BID 12/30/17 12/30/17 Multivitamin [Theragran] 1 tab PO BID 12/30/17 12/30/17 Nitrofurantoin Macrocrystal 50 mg PO DAILY 12/30/17 12/30/17 [Nitrofurantoin] Spironolactone 25 mg PO DAILY #30 tablet 12/31/17 - Allergies Allergies/Adverse Reactions: Allergies Allergy/AdvReac Type Severity Reaction Status Date / Time albuterol Allergy Unknown Verified 01/07/18 12:58 cortisone Allergy Edema Verified 01/07/18 12:58 latex Allergy Hives Verified 01/07/18 12:58 prednisone Allergy Edema Verified 01/07/18 12:58 Jcznvvl-Mqd-Okw Reductase Allergy Unknown Verified 01/07/18 12:58 Inhibitor oxycodone AdvReac Dizziness Verified 01/07/18 12:58 - Social History Does the pt smoke?: No Smoking Status: Never smoker Does the pt drink ETOH?: No Does the pt have substance abuse?: No - Immunizations Immunizations are current?: Yes - POLST Patient has POLST: No POLST Status: Full Code PD ED PE NORMAL - Vitals Vital signs reviewed: Yes - General General: Alert and oriented X 3, No acute distress - HEENT HEENT: PERRL, EOMI - Neck Neck: Supple, no meningeal sign, No bony TTP - Cardiac Cardiac: Other (irreg) - Abdomen Abdomen: Non tender - Extremities Extremities: Other (There is a small bruise in the right axilla, full range of motion no bony tenderness. There is mild tenderness over the lateral right hip but full range of motion, she has severe tenderness of the sacrum.) - Neuro Neuro: Alert and oriented X 3 Eye Opening: Spontaneous Motor: Obeys Commands Verbal: Oriented GCS Score: 15 - Psych Psych: Normal mood, Normal affect Results - Vitals Vitals: Vital Signs - 24 hr 01/07/18 01/07/18 12:52 15:05 Temperature 36.5 C Heart Rate 71 68 Respiratory 15 18 Rate Blood Pressure 149/86 H 167/93 H O2 Saturation 97 92 Oxygen O2 Source [] Room air O2 Source [] Room air O2 Source Room air - Rads (name of study) CT Head and C Spine Radiology: EMP read contemporaneously (Atrophy and sequela of ischemic insults without acute disease or fracture.) R hip and sacral XRs Radiology: EMP read contemporaneously (negative) PD MEDICAL DECISION MAKING - ED course ED course: 67-year-old woman on anticoagulation fell at the group home last night. It is not clear if she hit her head or not, her main complaint is sacral pain. Relevant imaging was negative. Departure - Departure Disposition: 01 Home, Self Care Clinical Impression: Anticoagulant long-term use Head injury Qualifiers: Encounter type: initial encounter Qualified Code(s): S09.90XA - Unspecified injury of head, initial encounter Neck strain Qualifiers: Encounter type: initial encounter Qualified Code(s): S16.1XXA - Strain of muscle, fascia and tendon at neck level, initial encounter Back contusion Qualifiers: Encounter type: initial encounter Laterality: right Qualified Code(s): S20.221A - Contusion of right back wall of thorax, initial encounter Contusion of hip, right Qualifiers: Encounter type: initial encounter Qualified Code(s): S70.01XA - Contusion of right hip, initial encounter Condition: Good Record reviewed to determine appropriate education?: Yes Instructions: ED Head Injury Closed, ED Contusion Back Comments: Call your doctor to arrange a follow-up appointment, make the next available appointment. In the interim, return anytime if worse or if new symptoms develop. Your blood pressure was elevated today on check into the emergency department. This does not mean that you have hypertension, it is a common phenomenon to come to the emergency department and have elevated blood pressure. I recommend that you see your primary care physician within the week to have it rechecked when you are feeling better.
--- NOTE | 2018-01-07 14:34 | CT Report ---
EXAM: CT HEAD EXAM DATE: 01/07/2018 02:16 PM. CLINICAL HISTORY: Head inj, anticoagulated. COMPARISON: 12/30/2017. TECHNIQUE: Multiaxial CT images were obtained from the foramen magnum to the vertex. Reformats: Coron al. IV contrast: None. In accordance with CT protocol optimization, one or more of the following dose reduction techniques w ere utilized for this exam: automated exposure control, adjustment of mA and/or KV based on patient s ize, or use of iterative reconstructive technique. FINDINGS: Parenchyma: No intraparenchymal hemorrhage. No evidence of mass, midline shift, or CT findings of acu te infarction. Graves-white differentiation is distinct. Focal hypodensities in the anterior right juliana us callosum, right basal ganglia, and left lateral cerebellar cerebellum likely represents a focal ma lacia from remote foci of infarction. Diffuse chronic microangiopathic white matter changes are evide nt. Extraaxial Spaces: Normal for age. No subdural or epidural collections identified. Ventricles: The ventricles and cortical sulci are enlarged, consistent with age-related tissue loss. Sinuses and orbits: Imaged paranasal sinuses, orbits, and mastoids show no significant abnormality. Bones: No evidence of fracture or calvarial defect. Other: None. IMPRESSION: 1. Generalized age-related cortical atrophic changes without evidence of acute intracranial abnormali ty. 2. Scattered foci of remote lacunar infarction as described above, unchanged compared to recent prior .. [facility] Referring Provider Line: [phone] SITE ID: [id number]
--- NOTE | 2018-01-07 14:34 | CT Preliminary Report ---
Exam: CT HEAD W/O IMPRESSION: 1. Generalized age-related cortical atrophic changes without evidence of acute intracranial abnormali ty. 2. Scattered foci of remote lacunar infarction as described above, unchanged compared to recent prior .. [facility] SITE ID: [id number]
--- NOTE | 2018-01-07 14:56 | CT Preliminary Report ---
Exam: CT CERVICAL SPINE W/O IMPRESSION: No evidence of cervical spine fracture or dislocation. [facility] SITE ID: [id number]
--- NOTE | 2018-01-07 14:56 | CT Report ---
EXAM: CT CERVICAL SPINE WITHOUT CONTRAST DATE: 01/07/2018 02:16 PM. HISTORY: Neck pain COMPARISONS: 06/09/2010. TECHNIQUE: Thin-section axial images were acquired of the cervical spine without contrast. Post-proce ssing: Coronal and sagittal reformats. Other: None. In accordance with CT protocol optimization, one or more of the following dose reduction techniques w ere utilized for this exam: automated exposure control, adjustment of mA and/or KV based on patient s ize, or use of iterative reconstructive technique. FINDINGS: Alignment: No evidence of dislocation. Bones: No fracture or bone lesion. Interspace Levels/Facets: There is moderate lower cervical spine disk space narrowing and diskoverteb ral hypertrophy. There is moderate mid and lower cervical spine facet arthrosis. Musculature: No significant abnormalities are seen. Other: No evidence of prevertebral soft tissue swelling or apical pneumothorax. The lung apices demon strate a mosaic parenchymal pattern. This is nonspecific. IMPRESSION: No evidence of cervical spine fracture or dislocation. [facility] Referring Provider Line: [phone] SITE ID: [id number]
[2018-01-07 15:05] VITALS: BP 167/93
--- NOTE | 2018-01-07 15:05 | XRAY Report ---
EXAM: RIGHT HIP AND PELVIS RADIOGRAPHY EXAM DATE: 01/07/2018 02:49 PM. HISTORY: Hip/back inj p fall. COMPARISONS: 04/17/2016. TECHNIQUE: 1 view of the pelvis and 1 view of the hip. FINDINGS: Bones: No fracture or bone lesion. Joints: The bilateral hip, pubis symphysis, and sacroiliac joints are preserved. Soft Tissues: Unremarkable. IMPRESSION: No acute osseous abnormality. [facility] Referring Provider Line: [phone] SITE ID: [id number]
--- NOTE | 2018-01-07 15:07 | XRAY Report ---
EXAM: SACRUM AND COCCYX RADIOGRAPHY EXAM DATE: 01/07/2018 02:49 PM. HISTORY: Hip/back inj p fall. COMPARISONS: 05/22/2012. TECHNIQUE: 2 views. FINDINGS: Alignment: The sacrum and coccyx are normally aligned. Bones: No visualized fracture or bone lesion. Joints: The sacroiliac joints and visualized hips are within normal limits. Moderate lower lumbar dis k degeneration. Soft Tissues: Unremarkable. IMPRESSION: Negative sacrum and coccyx radiography. [facility] Referring Provider Line: [phone] SITE ID: [id number]
== END 2018-01-07 15:38 | disposition home or self-care (01) ==
LOC: ED 12:42
DX: S09.90XA Unspecified injury of head, initial encounter (principal); S16.1XXA Strain of muscle, fascia and tendon at neck level, initial encounter; S20.221A Contusion of right back wall of thorax, initial encounter; W19.XXXA Unspecified fall, initial encounter; R03.0 Elevated blood-pressure reading, without diagnosis of hypertension; E11.9 Type 2 diabetes mellitus without complications; I48.91 Unspecified atrial fibrillation; Z79.01 Long term (current) use of anticoagulants; Z79.84 Long term (current) use of oral hypoglycemic drugs; Z86.73 Personal history of transient ischemic attack (TIA), and cerebral infarction without residual deficits
CPT/HCPCS: 70450; 72125; 72220; 99283

== ENCOUNTER 2018-01-11 16:04 | Outpatient (CLI) | payer MEDICARE, MEDICAID | END 2018-01-11 16:05 | disposition critical access hospital (66) | LOC: EMS 16:04 | PROVIDERS: ATTEND Surgery | DX: R53.1 Weakness (principal); R29.810 Facial weakness | CPT/HCPCS: A0425; A0429 ==

== ENCOUNTER 2018-01-11 16:10 | Inpatient (IN) | payer MEDICARE, MEDICAID ==
--- NOTE | 2018-01-11 17:01 | ED Physician Documentation ---
History of Present Illness - Stated complaint Stated Complaint: WEAKNESS - Chief complaint Chief Complaint: Neuro - History obtained from History obtained from: Patient, Family - History of Present Illness Timing: Today Pain level max: 0 Pain level now: 0 - Additonal information Additional information: Patient is a 67-year-old female who was admitted to the hospital on December 30 for a stroke. She subsequently was sent to a [facility] facility, but fell and was thus taken home by her family. She is currently living by herself and her daughters are staying with her. Today they noticed that she was having increasing right-sided weakness and unable to stand by herself. She is normally able to walk with a walker. They also state that her speech is more slurred than usual. She denies any headache. No neck pain. Review of Systems Ten Systems: 10 systems reviewed and negative Constitutional: denies: Fever, Chills Ears: denies: Ear pain Nose: denies: Rhinorrhea / runny nose, Congestion Throat: denies: Sore throat Cardiac: denies: Chest pain / pressure Respiratory: denies: Cough GI: denies: Abdominal Pain, Nausea, Vomiting, Diarrhea Skin: denies: Rash Musculoskeletal: denies: Neck pain, Back pain Neurologic: denies: Headache PD PAST MEDICAL HISTORY - Past Medical History Past Medical History: Yes Cardiovascular: Atrial fibrillation Respiratory: Asthma Neuro: CVA, TIA Endocrine/Autoimmune: Type 2 diabetes GI: GERD, GI bleed, Ulcers : Incontinence, Chronic bladder infection HEENT: Chronic vision loss Psych: Depression, Anxiety, Claustrophobia Musculoskeletal: Osteoarthritis, Fibromyalgia Derm: None - Past Surgical History Past Surgical History: Yes General: Bowel surgery, Colonoscopy Ortho: Rotator cuff repair /[facility]: Hysterectomy HEENT: Cataracts - Present Medications Home Medications: Ambulatory Orders Medication Instructions Recorded Confirmed Acetaminophen with Codeine 1 tab PO TID 01/11/18 [Acetamin-Codein 300-30 mg/12.5] Apixaban [Eliquis] 5 mg PO DAILY 01/11/18 Aspirin [Aspirin EC] 81 mg PO DAILY 01/11/18 DULoxetine [Cymbalta] 01/11/18 Digoxin [Lanoxin] 0.125 mg PO DAILY 01/11/18 Duloxetine HCl [Cymbalta] 01/11/18 Furosemide [Lasix] 20 mg PO DAILY 01/11/18 Gabapentin 300 mg PO TID 01/11/18 Insulin Glargine [Lantus] 26 units SQ DAILY 01/11/18 Levothyroxine Sodium [Synthroid] 0 01/11/18 Losartan Potassium [Losartan 25 mg PO DAILY 01/11/18 Potassium] Melatonin [Melatonin] 5 mg PO DAILY 01/11/18 Metoprolol Succinate [Toprol Xl] 50 mg PO BID 01/11/18 Morphine Sulfate [Morphine Sulfate] 15 mg PO TID 01/11/18 Nitrofurantoin Macrocrystal 50 mg PO DAILY 01/11/18 [Nitrofurantoin] Spironolactone 25 mg PO DAILY 01/11/18 metFORMIN [Glucophage] 1,000 mg PO BID 01/11/18 - Allergies Allergies/Adverse Reactions: Allergies Allergy/AdvReac Type Severity Reaction Status Date / Time albuterol Allergy Unknown Verified 01/11/18 16:19 cortisone Allergy Edema Verified 01/11/18 16:19 latex Allergy Hives Verified 01/11/18 16:19 prednisone Allergy Edema Verified 01/11/18 16:19 Sbsbyja-Ben-Bhn Reductase Allergy Unknown Verified 01/11/18 16:19 Inhibitor oxycodone AdvReac Dizziness Verified 01/11/18 16:19 - Social History Does the pt smoke?: No Smoking Status: Never smoker Does the pt drink ETOH?: No Does the pt have substance abuse?: No - Immunizations Immunizations are current?: Yes - POLST Patient has POLST: No POLST Status: Full Code PD ED PE NORMAL - Vitals Vital signs reviewed: Yes - General General: Alert and oriented X 3, No acute distress - HEENT HEENT: Atraumatic, PERRL, Moist mucous membranes - Neck Neck: Supple, no meningeal sign, No bony TTP - Cardiac Cardiac: RRR, Strong equal pulses - Respiratory Respiratory: No respiratory distress, Clear bilaterally - Abdomen Abdomen: Soft, Non tender, Non distended - Back Back: No spinal TTP - Derm Derm: Warm and dry - Neuro Neuro: Alert and oriented X 3 - Psych Psych: Normal mood, Normal affect Results - Vitals Vitals: Vital Signs - 24 hr 01/11/18 16:15 Temperature 36.5 C Heart Rate 75 Respiratory 12 Rate Blood Pressure 135/75 H O2 Saturation 96 Oxygen O2 Source [With Activity] Room air O2 Source [Without Activity] Room air O2 Source Room air - EKG (time done) 1644 Rate: Rate (enter#) (68) Rhythm: Atrial fibrillation [place]: Normal QRS: Normal Ischemia: Other (borderline repol abnormality.) - Labs Labs: Laboratory Tests 01/11/18 01/11/18 01/11/18 16:55 16:55 16:55 WBC 6.3 RBC 5.23 Hgb 13.7 Hct 42.3 MCV 80.9 L MCH 26.2 L MCHC 32.3 RDW 15.9 H Plt Count 354 MPV 7.3 L Neut # 4.1 Lymph # 1.2 L [place] # 0.7 Eos # 0.2 Baso # 0.1 Absolute Nucleated RBC 0.00 Nucleated RBC % 0.0 PT 15.3 H INR 1.4 H APTT 36.7 H Sodium 130 L Potassium 4.3 Chloride 91 L Carbon Dioxide 28 Anion Gap 11.0 BUN 19 Creatinine 0.8 Estimated GFR (MDRD) 72 L Glucose 193 H Glycated Hemoglobin Estim Average Glucose Calcium 9.2 Total Bilirubin 0.3 AST 25 ALT 19 Alkaline Phosphatase 83 Troponin I Total Protein 7.8 Albumin 3.7 Globulin 4.1 Albumin/Globulin Ratio 0.9 L Lipase 16 L Urine Color Urine Clarity Urine pH Ur Specific [place] Urine Protein Urine Glucose (UA) Urine Ketones Urine Occult Blood Urine Nitrite Urine Bilirubin Urine Urobilinogen Ur Leukocyte Esterase Ur Microscopic Review Urine Culture Comments 01/11/18 01/11/18 01/11/18 16:55 16:55 17:25 WBC RBC Hgb Hct MCV MCH MCHC RDW Plt Count MPV Neut # Lymph # [place] # Eos # Baso # Absolute Nucleated RBC Nucleated RBC % PT INR APTT Sodium Potassium Chloride Carbon Dioxide Anion Gap BUN Creatinine Estimated GFR (MDRD) Glucose Glycated Hemoglobin 6.9 H Estim Average Glucose 151 H Calcium Total Bilirubin AST ALT Alkaline Phosphatase Troponin I < 0.04 Total Protein Albumin Globulin Albumin/Globulin Ratio Lipase Urine Color YELLOW Urine Clarity CLEAR Urine pH 6.0 Ur Specific [place] 1.020 Urine Protein TRACE Urine Glucose (UA) NEGATIVE Urine Ketones NEGATIVE Urine Occult Blood NEGATIVE Urine Nitrite NEGATIVE Urine Bilirubin NEGATIVE Urine Urobilinogen 0.2 (NORMAL) Ur Leukocyte Esterase NEGATIVE Ur Microscopic Review NOT INDICATED Urine Culture Comments NOT INDICATED - Rads (name of study) head CT Radiology: Prelim report reviewed, EMP read contemporaneously, See rad report ( No CT evidence for new or acute intracranial abnormality. Again seen are findings of atrophy and sequelae of previous ischemic infarcts. No acute hemorrhage. ) PD MEDICAL DECISION MAKING - ED course Complexity details: reviewed results, re-evaluated patient, considered differential, d/w patient, d/w family ED course: Patient is a 67-year-old female who presents to the emergency department with seems to be new right-sided stroke symptoms. Unclear onset of this occurred yesterday or today. Not a TPA candidate. She is currently on Eliquis and has had multiple subacute infarcts on her last MRI. Appears to be producing clots from her atrial fibrillation despite anticoagulation. She is now unable to walk by herself given her new right-sided symptoms, will admit the patient to the hospital for further care. Discussed the case with Dr. Ornelas, hospitalist who accepts. I also discussed with the patient's daughters the possibility of palliative care and looking at obtaining a consult for this when she is inpatient. This document was made in part using voice recognition software. While efforts are made to proofread this document, sound alike and grammatical errors may occur. Departure - Departure Disposition: 67 [facility] DC/Xfer Clinical Impression: Acute embolic stroke, Hyponatremia, Dehydration Condition: Stable Discharge Date/Time: 01/11/18 19:22 NIHSS - Time Time: 14:30 - Level of Consciousness Level of consciousness: (0) Alert, Keenly responsive LOC Questions: (0) Answers both Q's correct LOC Commands: (0) Performs both correctly - Gaze Best Gaze: (0) Normal - Visual Visual: (0) No loss - Facial Palsy Facial Palsy: (1) Minor paralysis (R side) - Motor Arms (both separate) Motor Arm (right): (1) Drift Motor Arm (left): (1) Drift - Motor Legs (both separate) Motor Leg (right): (1) Drift Motor Leg (left): (0) No drift - Limb Ataxia Limb Ataxia: (0) Absent - Sensory Sensory: (0) Normal - Best Language Best Language: (0) No aphasia - Dysarthria Dysarthria: (1) Tvfy-nj-fhhcsobr dysarthria - Extinction and Inattention (formally neg Extinction and inattention: (0) No abnormality - Total Score/Results Total Score/Result: 5
[2018-01-11 17:13] LABS: BASOPHILS # (AUTO) 0.1 10^3/uL (0.0-0.1); BASOPHILS % (AUTO) 1.3 %; EOSINOPHILS # (AUTO) 0.2 10^3/uL (0.0-0.7); EOSINOPHILS % (AUTO) 3.9 %; HGB - HEMOGLOBIN 13.7 g/dL (12.0-16.0); LYMPHOCYTES # (AUTO) 1.2 10^3/uL (1.5-3.5); MEAN CORPUSCULAR HEMOGLOBIN 26.2 pg (27.0-31.0); MEAN CORPUSCULAR HGB CONC 32.3 g/dL (32.0-36.0); MEAN CORPUSCULAR VOLUME 80.9 fL (81.0-99.0); MEAN PLATELET VOLUME 7.3 fL (7.9-10.8); MONOCYTES # (AUTO) 0.7 10^3/uL (0.0-1.0); NEUTROPHILS # (AUTO) 4.1 10^3/uL (1.5-6.6); NEUTROPHILS % (AUTO) 64.8 %; PLT - PLATELET COUNT 354 10^3/uL (130-450); RED BLOOD COUNT 5.23 10^6/uL (4.20-5.40); RED CELL DISTRIBUTION WIDTH 15.9 % (12.0-15.0); WHITE BLOOD COUNT 6.3 x10^3/uL (4.8-10.8)
[2018-01-11 17:22] LABS: ALBUMIN 3.7 g/dL (3.2-5.5); ALBUMIN/GLOBULIN RATIO 0.9 (1.0-2.2); BILIRUBIN,TOTAL 0.3 mg/dL (0.2-1.0); CALCIUM 9.2 mg/dL (8.5-10.3); CREATININE 0.8 mg/dL (0.4-1.0); TOTAL PROTEIN 7.8 g/dL (6.7-8.2)
--- NOTE | 2018-01-11 17:27 | CT Preliminary Report ---
Exam: CT HEAD W/O IMPRESSION: No CT evidence for new or acute intracranial abnormality. Again seen are findings of atro phy and sequelae of previous ischemic infarcts. No acute hemorrhage. [facility] SITE ID: [id number]
--- NOTE | 2018-01-11 17:33 | CT Report ---
EXAM: CT HEAD EXAM DATE: 01/11/2018 05:14 PM. CLINICAL HISTORY: Right side weakness. COMPARISON: CT brain without contrast 01/07/2018. MRI of the brain 12/30/2017. CT of the brain and CT angiography of the neck and head were also performed recently, 12/30/2017. TECHNIQUE: Multiaxial CT images were obtained from the foramen magnum to the vertex. Reformats: Coron al. IV contrast: None. In accordance with CT protocol optimization, one or more of the following dose reduction techniques w ere utilized for this exam: automated exposure control, adjustment of mA and/or KV based on patient s ize, or use of iterative reconstructive technique. FINDINGS: No CT evidence for new or acute intracranial abnormality. No acute hemorrhage. No mass effect or midl ine shift. Again seen are findings of sequelae of multifocal ischemic brain disease. No evidence for new or enla rging ischemic infarct. No hydrocephalus. No abnormal subdural fluid collection. Otherwise stable generalized senescent lebron es. Intact calvarium. No acute sinus or mastoid disease. Moderately prominent chronic cavernous carotid c alcifications. IMPRESSION: No CT evidence for new or acute intracranial abnormality. Again seen are findings of atro phy and sequelae of previous ischemic infarcts. No acute hemorrhage. [facility] Referring Provider Line: [phone] SITE ID: [id number]
[2018-01-11] MEDS ORDERED: SODIUM CHLORIDE 0.9% 500 ML IV ONE (17:43)
[2018-01-11] MEDS ORDERED: SODIUM CHLORIDE 0.9% 1,000 ML IV ONE (17:43)
[2018-01-11 17:49] LABS: BILIRUBIN,URINE NEGATIVE (NEGATIVE); GLUCOSE, URINE (UA) NEGATIVE (NEGATIVE); KETONES,URINE (UA) NEGATIVE (NEGATIVE); LEUKOCYTE ESTERASE, URINE NEGATIVE (NEGATIVE); NITRITE,URINE NEGATIVE (NEGATIVE); OCCULT BLOOD,URINE NEGATIVE (NEGATIVE); PROTEIN,URINE TRACE mg/dL (NEGATIVE); UROBILINOGEN,URINE 0.2 (NORMAL) E.U./dL (NORMAL)
[2018-01-11 17:51] LABS: CLARITY,URINE CLEAR (CLEAR)
--- NOTE | 2018-01-11 18:07 | HISTORY & PHYSICAL EXAMINATION ---
Chief Complaint - Chief Complaint Chief Complaint: right side weakness and slurred speech History of Present Illness - History of Present Illness HPI Comment/Other: Ms. Chao is a pleasant 68-year-old female with a significant past medical history for multiple strokes including twice in 2003, one in 2005, a stroke in 2017, and recent one on two weeks ago, atrial fibrillation on anticoagulant, Eliquis plus anti-platelet Aspirin, diabetes, anemia, bilateral lower extremity edema, hypertension, osteoarthritis, hypothyroidism, fibromyalgia and chronic pain, who presented to the emergency department with a chief complaint of right side weakness and slurred speech. Pt was admitted to the hospital on December 30 for a stroke. Then pt [facility] subsequently [facility] a [facility] , but pt had a frequent fell in SNF. Then pt's family decided to take pt to home. Pt is currently living by herself but pt's daughters are staying nearly by her. Today two daughters noticed that she was more slurred than usual, increase right-sided weakness and unable to stand by herself. The patient denies any headache, neck pain, chest pain, shortness of air, orthopnea, PND, any fevers, chills, night sweating, runny nose, sore throat, nasal congestion, abdominal pain, nausea, vomiting, diarrhea. On presentation to the emergency department the patient was afebrile, heart rate was within normal limits, she was slightly hypertensive but otherwise was not in any respiratory distress. There is a slight weakness at right side, some slurred speech but unkown if this is her baseline. The patient's lab work revealed INR of 1.4, Na 130, otherwise unremarkable. The patient underwent a CT of her head which showed chronic findings without any evidence of acute disease. Pt's EKG showed a chronic atrial fibrillation. Pt and Pt's daughters concern she had multiple strokes and look for a palliative care. The patient was admitted for further neurologic stroke workup including neuro checks and MRI evaluation, PT/OT/SP, further consulting for palliative care. 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 She lives on her own, but her daughter is her caregiver and is around most of the day. She has lived on [facility] for over 40 years now. Prior to that she was born and raised in [place]. She has 3 daughters, 2 of whom live in [place], 1 of whom lives in [facility]. The patient is . The patient has never drank alcohol, she does not smoke. She was, however, exposed to secondhand smoke from her parents for a number of years. She denies any illicit drug use. - POLST Patient has POLST: No POLST Status: DNR Meds/Allgy - Home Medications Home Medications: Ambulatory Orders Medication Instructions Recorded Confirmed Apixaban [Eliquis] 5 mg PO BID 01/11/18 01/12/18 Aspirin [Aspirin EC] 81 mg PO DAILY 01/11/18 01/12/18 DULoxetine [Cymbalta] 30 mg PO DAILY 01/11/18 01/12/18 Digoxin [Lanoxin] 0.125 mg PO DAILY 01/11/18 01/12/18 Duloxetine HCl [Cymbalta] 60 mg PO DAILY 01/11/18 01/12/18 Furosemide [Lasix] 20 mg PO DAILY 01/11/18 01/12/18 Gabapentin 300 mg PO TID 01/11/18 01/12/18 Insulin Glargine [Lantus] 26 units SQ DAILY 01/11/18 01/12/18 Losartan Potassium [Losartan 25 mg PO DAILY 01/11/18 01/12/18 Potassium] Melatonin [Melatonin] 5 mg PO DAILY 01/11/18 01/12/18 Morphine Sulfate [Morphine Sulfate] 15 mg PO TID 01/11/18 01/12/18 Nitrofurantoin Macrocrystal 50 mg PO DAILY 01/11/18 01/12/18 [Nitrofurantoin] Spironolactone 25 mg PO DAILY 01/11/18 01/12/18 metFORMIN [Glucophage] 1,000 mg PO BIDWM 01/11/18 01/12/18 Acetaminophen/Cod 300/30 [Tylenol 1 tab PO QID PRN 01/12/18 01/12/18 #3] Calcium Carbonate [Tums (Calcium 500 mg PO Q4-6H PRN 01/12/18 01/12/18 Carbonate 500mg)] Levothyroxine Sodium 100 mcg PO QDAC 01/12/18 01/12/18 Levothyroxine Sodium 137 mcg PO QDAC 01/12/18 01/12/18 Magnesium Oxide [Magnesium] 500 mg PO BID 01/12/18 01/12/18 Metoprolol Tartrate [Lopressor] 100 mg PO BID 01/12/18 01/12/18 - Allergies Allergies/Adverse Reactions: Allergies Allergy/AdvReac Type Severity Reaction Status Date / Time albuterol Allergy Unknown Verified 01/11/18 16:19 cortisone Allergy Edema Verified 01/11/18 16:19 latex Allergy Hives Verified 01/11/18 16:19 prednisone Allergy Edema Verified 01/11/18 16:19 [id number] Reductase Allergy Unknown Verified 01/11/18 16:19 Inhibitor oxycodone AdvReac Dizziness Verified 01/11/18 16:19 Review of Systems - Constitutional Constitutional: reports: Fatigue, Weakness. denies: Fever, Chills, Malaise, Poor appetite, Diaphoresis, Night sweats, Weight gain, Weight loss - Eyes Eyes: denies: Pain, Irritation, Amaurosis, Blurred vision, Spots in vision, Field loss, Vision loss, Dipolpia - Ears, Nose & Throat Ears, Nose & Throat: denies: Ear pain, Hearing loss, Hearing aids, Tinnitus, Vertigo, Nasal pain, Nasal discharge, Nosebleeds, Nasal obstruction, Nasal congestion, Postnasal drainage, Dentures, Sore throat, Hoarseness, Mouth lesions , Bleeding gums - Cardiovascular Cariovascular: denies: Irregular heart rate, Palpitations, Chest pain, Edema, Lightheadedness, Syncope, Exertional dyspnea, Decr. exercise tolerance - Respiratory Respiratory: denies: Cough, Sputum production, Wheezing, Snoring, Hemoptysis, Orthopnea, SOB at rest, SOB with exertion, Apnea, Stridor, Pleuritic pain - Gastrointestinal Gastrointestinal: denies: Abdominal pain, Abdominal distention, Constipation, Diarrhea, Change in bowel habits, Rectal bleeding, Black stools, Bloody stools, Nausea, Vomiting, Bile emesis, Rex blood emesis, Coffee grounds emesis, Reflux /heartburn, Poor appetite - Genitourinary Genitourinary: denies: Dysuria, Frequency, Urgency, Hematuria, Incontinence, Flank pain, Nocturia, Urethral discharge - Musculoskeletal Musculoskeletal: reports: Limited range of motion, Muscle weakness. denies: Muscle pain, Back pain, Muscle aches, Stiffness, Gout, Joint pain - Integumentary Integumentary: denies: Rash, Pruritis, Lesions, Dryness, Lumps, Acne, Pigment changes - Neurological Neurological: reports: General weakness, Focal weakness, Pre-existing deficit, Abnormal gait, Incoordination, Slurred speech. denies: Headache, Dizziness, Numbness, Memory problems, Seizures - Psychiatric Psychiatric: denies: Depression, Anxiety, Suicidal, Delusions, Hallucinations, Homicidal - Endocrine Endocrine: denies: Polyuria, Polydypsia, Polyphagia, Intolerance to cold, Intolerance to heat - Hematologic/Lymphatic Hematologic/Lymphatic: denies: Anemia, Bruising, Petechiae, Blood clots, Lymphadenopathy, Bleeding tendencies, Recurrent infections Exam - Vital Signs Reviewed Vital Signs: Yes Vital Signs: Vital Signs x48h Temp Pulse Resp BP Pulse Ox 01/11/18 16:15 36.5 C 75 12 135/75 H 96 - Physical Exam General Appearance: positive: No acute distress, Alert. negative: Lethargic Eyes Bilateral: positive: Normal inspection, PERRL, No lid inflammation, Conjunctivae nml ENT: positive: ENT inspection nml, Pharynx nml, No signs of dehydration. negative: Purulent nasal drainage, Pharyngeal erythema, Oral lesions Neck: positive: Nml inspection, Thyroid nml, No JVD, Trachea midline. negative : Thyromegaly, Lymphadenopathy (R), Lymphadenopathy (L), Stiff neck, Swelling/ bruising, Tracheal deviation Respiratory: positive: Chest non-tender, No respiratory distress, Breath sounds nml. negative: Wheezes, Rales, Rhonchi Cardiovascular: positive: Regular rate & rhythm, No murmur, No gallop. negative : Irregularly irregular, Extrasystoles, Tachycardia, Bradycardia, JVD present, Systolic murmur, Diastolic murmur Peripheral Pulses: positive: 2+ Abdomen: positive: Non-tender, No organomegaly, Nml bowel sounds, No distention. negative: Tenderness, Guarding, Rebound, Abnml bowel sounds Back: positive: Nml inspection. negative: CVA tenderness (R), CVA tenderness (L ) Skin: positive: Color nml, No rash, Warm, Dry. negative: Cyanosis, Diaphoresis , Pallor Extremities: positive: Non-tender, Nml appearance. negative: Calf tenderness, Joint swelling, Wale's sign/cords Neurologic/Psychiatric: positive: Sensation nml, Weakness, Slurred/abnml speech. negative: Motor nml, Sensory loss, Facial droop, Depressed mood/affect Conclusion/Plan - Problem List (1) CVA (cerebral vascular accident) Conclusion/Plan: pt initially present right side weakness and more slurred speech, but waned down the symptoms. Pt may have new stroke or just TIA. MRI, follow up US of Carotid. Pt had CTA of brain and neck recently, revealed chronic stenosis ECHO resume home Aspirin, Eliquis Lipid panel study add Lipitor hold blood pressure meds, will vital monitor and adjust as needed PT/OT/ST Qualifiers: CVA mechanism: unspecified Qualified Code(s): I63.9 - Cerebral infarction, unspecified (2) Atrial fibrillation Conclusion/Plan: pt's HR is well controlled. resume Digix and Metoprolol tele and vital monitor resume Eliquis INR is 1.4 Qualifiers: Atrial fibrillation type: chronic Qualified Code(s): I48.2 - Chronic atrial fibrillation (3) Diabetes Conclusion/Plan: resume home Lantus slide scale, ACHS hypoglycemia Qualifiers: Diabetes mellitus type: type 2 Diabetes mellitus longterm insulin use: with longterm use Diabetes mellitus complication status: with neurologic complications Diabetes mellitus complication detail: with other neurological complication Qualified Code(s): E11.49 - Type 2 diabetes mellitus with other diabetic neurological complication; Z79.4 - retirement (current) use of insulin; 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; 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; 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 (4) HTN (hypertension) Conclusion/Plan: will hold BP meds, will closely monitor (5) Hypothyroidism Conclusion/Plan: check TSH, and resume home Levoth (6) Hyponatremia Conclusion/Plan: it appears hypovolume and hyponatremia mild IVF of NS daily lab monitor electrolytes (7) DVT prophylaxis Conclusion/Plan: SCD (8) Do not intubate, cardiopulmonary resuscitation (CPR)-only code status Conclusion/Plan: pt clearly request DNR - Lab Results Fish Bones: 01/12/18 05:25 01/12/18 05:25 Core Measures - DVT/VTE - Prophylaxis VTE/DVT Device ordered at admit?: Yes - Stroke - Rehab Assessment Rehab services assessment to be ordered?: Yes
[2018-01-11] MEDS ORDERED: ACETAMINOPHEN 650 MG SUPP PR PRN (18:26)
[2018-01-11] MEDS ORDERED: SODIUM CHLORIDE FLUSH 0.9% 10 ML SYRINGE IVP PRN (18:35)
[2018-01-11] MEDS ORDERED: ACETAMINOPHEN 325 MG TABLET PO PRN (18:35)
[2018-01-11] MEDS ORDERED: ONDANSETRON 4 MG/2 ML VIAL IVP PRN (18:35)
[2018-01-11] MEDS ORDERED: LORazepam 0.5 MG TABLET PO STA (18:46)
[2018-01-11] MEDS ORDERED: LORazepam 0.5 MG TABLET PO SCH (19:00)
[2018-01-11 19:09] LABS: INR 1.4 (0.8-1.2); PT - PROTHROMBIN TIME 15.3 secs (9.9-12.6)
[2018-01-11 19:26] LABS: HB2 TOTAL 15.4 g/dL; HEMOGLOBIN A1C 0.8 g/dL; HEMOGLOBIN A1C % 6.9 % (4.6-6.2)
[2018-01-11] MEDS ORDERED: APIXABAN 2.5 MG TABLET PO SCH (20:00)
[2018-01-11] MEDS: SODIUM CHLORIDE 0.9% 1,000 ML IV SCH (20:21)
[2018-01-11] MEDS: ASPIRIN 325 MG TABLET PO SCH (21:21)
[2018-01-11] MEDS: ATORVASTATIN 40 MG TABLET PO SCH (21:21)
[2018-01-11] MEDS: INSULIN ASPART 300 UNIT/3 ML PEN SUBQ SCH (21:22)
--- NOTE | 2018-01-12 00:35 | Ultrasound Preliminary Report ---
Exam: US CAROTID DOPPLER COMPLETE IMPRESSION: 1. Mild to moderate bilateral atheromatous carotid artery plaque with no hemodynamically significant stenosis. Validated velocity measurements with angiographic measurements and velocity criteria are extrapolated from diameter data as defined by the Society of Radiologists in Ultrasound Consensus Conference Radi ology 2003; 229;340-346. [facility] SITE ID: [id number]
--- NOTE | 2018-01-12 00:53 | Ultrasound Report ---
EXAM: CAROTID DOPPLER ULTRASOUND EXAM DATE: 01/11/2018 09:34 PM. CLINICAL HISTORY: Stroke. COMPARISON: 12/16/2016 carotid Doppler ultrasound. TECHNIQUE: Real-time sonographic vascular imaging was performed by the underwriting technician through the [employer] d arterial system with a linear transducer utilizing color-flow, Doppler flow and spectral analysis. Multiple energy conservation representative static images were saved for review. FINDINGS: Graves scale evaluation of the carotid arteries demonstrates mild to moderate calcified plaque in the d istal common through internal carotid arteries. Peak systolic velocities and ICA/CCA ratios, however, remain within normal limits. Irregular waveforms noted. Right: RCCA Prox: PSV 69.2 cm/sec. RCCA Dist: PSV 46.5 cm/sec, EDV 10.3 cm/sec. RECA: PSV 102.2 cm/sec. R Bulb: PSV 38.4 cm/sec, EDV 13.5 cm/sec, ICA/CCA ratio 0.8. SANYA Prox: PSV 46.3 cm/sec, EDV 11.5 cm/sec, ICA/CCA ratio 1.0. SANYA Mid: PSV 41.2 cm/sec, EDV 8.5 cm/sec, ICA/CCA ratio 0.9. SANYA Dist: PSV 57.8 cm/sec, EDV 20.4 cm/sec, ICA/CCA ratio 1.2. RVA: PSV 67.2 cm/sec. RVA flow direction: Antegrade. Left: LCCA Prox: PSV 75.7 cm/sec. LCCA Dist: PSV 50.3 cm/sec, EDV 7.6 cm/sec. LECA: PSV 64.9 cm/sec. L Bulb: PSV 47.6 cm/sec, EDV 7.6 cm/sec, ICA/CCA ratio 0.9. LICA Prox: PSV 37.0 cm/sec, EDV 1.1 cm/sec, ICA/CCA ratio 0.7. LICA Mid: PSV 42.6 cm/sec, EDV 11.8 cm/sec, ICA/CCA ratio 0.9. LICA Dist: PSV 63.3 cm/sec, EDV 10.6 cm/sec, ICA/CCA ratio 1.3. LVA: PSV 49.9 cm/sec. LVA flow direction: Antegrade. Other: None. IMPRESSION: 1. Mild to moderate bilateral atheromatous carotid artery plaque with no hemodynamically significant stenosis. Validated velocity measurements with angiographic measurements and velocity criteria are extrapolated from diameter data as defined by the Society of Radiologists in Ultrasound Consensus Conference Radi ology 2003; 229;340-346. [facility] Referring Provider Line: [phone] SITE ID: [id number]
[2018-01-12 05:34] LABS: BASOPHILS # (AUTO) 0.1 10^3/uL (0.0-0.1); BASOPHILS % (AUTO) 1.4 %; EOSINOPHILS # (AUTO) 0.3 10^3/uL (0.0-0.7); EOSINOPHILS % (AUTO) 4.3 %; HGB - HEMOGLOBIN 13.3 g/dL (12.0-16.0); MEAN CORPUSCULAR HEMOGLOBIN 26.2 pg (27.0-31.0); MEAN CORPUSCULAR HGB CONC 32.6 g/dL (32.0-36.0); MEAN CORPUSCULAR VOLUME 80.2 fL (81.0-99.0); MONOCYTES # (AUTO) 0.6 10^3/uL (0.0-1.0); MONOCYTES % (AUTO) 9.6 %; NEUTROPHILS # (AUTO) 4.2 10^3/uL (1.5-6.6); NEUTROPHILS % (AUTO) 68.7 %; PLT - PLATELET COUNT 298 10^3/uL (130-450); RED BLOOD COUNT 5.08 10^6/uL (4.20-5.40); RED CELL DISTRIBUTION WIDTH 15.9 % (12.0-15.0)
[2018-01-12 05:46] LABS: DIGOXIN 0.6 ng/mL
[2018-01-12 05:47] LABS: ALBUMIN 3.6 g/dL (3.2-5.5); ALBUMIN/GLOBULIN RATIO 1.1 (1.0-2.2); BILIRUBIN,TOTAL 0.5 mg/dL (0.2-1.0); CALCIUM 8.7 mg/dL (8.5-10.3); CREATININE 0.8 mg/dL (0.4-1.0); MAGNESIUM 2.1 mg/dL (1.7-2.8)
[2018-01-12 05:51] LABS: CHOL/HDL RATIO 5.9 (<4.4); CHOLESTEROL 190 mg/dL; HDL CHOLESTEROL 32 mg/dL; LDL CHOLESTEROL,CALCULATED 110 mg/dL; LDL/HDL RATIO 3.4 (<4.4); VLDL CHOLESTEROL 48 mg/dL
[2018-01-12] MEDS: SODIUM CHLORIDE 0.9% 1,000 ML IV SCH (06:58)
[2018-01-12] MEDS ORDERED: LORazepam 0.5 MG TABLET PO SCH (09:00)
[2018-01-12] MEDS: SODIUM CHLORIDE FLUSH 0.9% 10 ML SYRINGE IVP SCH ×3 (09:33→17:15)
[2018-01-12] MEDS: FAMOTIDINE 20 MG TABLET PO SCH (09:33)
[2018-01-12] MEDS: ASPIRIN 325 MG TABLET PO SCH (09:33)
[2018-01-12] MEDS: APIXABAN 2.5 MG TABLET PO SCH ×2 (09:34→21:38)
[2018-01-12] MEDS: DULoxetine 30 MG CAPSULE PO SCH (09:37)
[2018-01-12] MEDS: POLYETHYLENE GLYCOL 3350 17 GM PACKET PO SCH (09:38)
[2018-01-12] MEDS: INSULIN ASPART 300 UNIT/3 ML PEN SUBQ SCH ×4 (09:40→21:33)
[2018-01-12] MEDS: METOPROLOL TARTRATE 50 MG TABLET PO SCH ×2 (10:10→21:29)
[2018-01-12] MEDS: ACETAMINOPHEN/CODEINE 300 MG/30 MG TABLET PO PRN (10:11)
[2018-01-12] MEDS: GABAPENTIN 300 MG CAPSULE PO SCH ×3 (10:11→21:31)
[2018-01-12] MEDS: FUROSEMIDE 20 MG TABLET PO SCH (10:11)
[2018-01-12] MEDS: DIGOXIN 125 MCG TABLET PO SCH (10:11)
[2018-01-12] MEDS: INSULIN GLARGINE 300 UNIT/3 ML PEN SUBQ SCH (10:12)
--- NOTE | 2018-01-12 11:52 | MRI Preliminary Report ---
Exam: MRI BRAIN W/O IMPRESSION: 1. Expected evolution of recent infarct. 2. No other MRI evidence for new or acute intracranial abnormality. [facility] SITE ID: [id number]
--- NOTE | 2018-01-12 12:03 | MRI Report ---
EXAM: MRI BRAIN WITHOUT CONTRAST EXAM DATE: 01/12/2018 11:26 AM. CLINICAL HISTORY: Stroke follow-up. COMPARISON: 12/30/2017. TECHNIQUE: Multiplanar, multisequence T1-weighted and fluid-sensitive MR sequences of the brain were performed. Sequences optimized for routine evaluation. Other: None. IV Contrast: None. FINDINGS: Again seen are findings of signal abnormality consistent with recent infarcts of the right internal c apsule and left peritrigonal white matter. These findings are evolving as expected in comparison to t he recent prior brain MRI. No other MRI evidence for new or acute intracranial abnormality. No hemorrhage. Otherwise stable findings of atrophy and extensive changes consistent with chronic multifocal small v essel ischemic disease including of the cerebral white matter and brainstem with multiple chronic int ermixed lacunar infarcts as before. No acute sinus or mastoid disease. Prior lens extractions. No hydrocephalus, midline shift or abnorma l subdural fluid collection. IMPRESSION: 1. Expected evolution of recent infarcts. 2. No other MRI evidence for new or acute intracranial abnormality. [facility] Referring Provider Line: [phone] SITE ID: [id number]
[2018-01-12] MEDS: MORPHINE ER 15 MG TABLET PO SCH ×2 (12:46→21:30)
--- NOTE | 2018-01-12 14:52 | PROVIDER PROGRESS NOTE ---
Subjective - Prog Note Date Prog Note Date: 01/12/18 - Subjective Pt reports feeling: Improved Subjective: pt state she feel better. it seems resolved for her to have weakness on right side, per pt state. no other complaints. No CP, SOB, fever, chill. Current Medications - Current Medications Current Medications: Active Medications Acetaminophen (Tylenol) 650 mg MD Q6HR PRN PRN Reason: FEVER > 100.5 F Acetaminophen/Codeine Phosphate (Tylenol #3) 1 tab PO QID PRN PRN Reason: PAIN Last Admin: 01/12/18 10:11 Dose: 1 tab Apixaban (Eliquis) 5 mg PO BID [facility] Last Admin: 01/12/18 09:34 Dose: 5 mg Aspirin (Ty) 81 mg PO DAILY [facility] Last Admin: 01/12/18 09:33 Dose: 81 mg Atorvastatin Calcium (Lipitor) 40 mg PO QPM [facility] Last Admin: 01/11/18 21:21 Dose: 40 mg Digoxin (Lanoxin) 125 mcg PO DAILY [facility] Last Admin: 01/12/18 10:11 Dose: 125 mcg Duloxetine HCl (Cymbalta) 30 mg PO DAILY [facility] Last Admin: 01/12/18 09:37 Dose: 30 mg Famotidine (Pepcid) 20 mg PO DAILY [facility] Last Admin: 01/12/18 09:33 Dose: 20 mg Furosemide (Lasix) 20 mg PO DAILY [facility] Last Admin: 01/12/18 10:11 Dose: 20 mg Gabapentin (Neurontin) 300 mg PO TID [facility] Last Admin: 01/12/18 10:11 Dose: 300 mg Sodium Chloride (Normal Saline 0.9%) 1,000 mls @ 85 mls/hr IV .[id number] [facility] Last Admin: 01/12/18 06:58 Dose: 85 mls/hr Insulin Aspart (Novolog) 1 - 9 unit SUBQ 0800,1200,1700,2100 [facility] PRN Reason: Protocol Last Admin: 01/12/18 12:46 Dose: 3 unit Insulin Glargine (Lantus Solostar) 26 unit SUBQ DAILY [facility] Last Admin: 01/12/18 10:12 Dose: 26 unit Levothyroxine Sodium (Synthroid) 100 mcg PO QDAC [facility] Metoprolol Tartrate (Lopressor) 100 mg PO BID [facility] Last Admin: 01/12/18 10:10 Dose: 100 mg Morphine Sulfate () 15 mg PO TID [facility] Last Admin: 01/12/18 12:46 Dose: 15 mg Ondansetron HCl (Zofran Inj) 4 mg IVP Q6HR PRN PRN Reason: Nausea / Vomiting Polyethylene Glycol (Miralax) 17 gm PO DAILY [facility] Last Admin: 01/12/18 09:38 Dose: Not Given Sodium Chloride (Normal Saline Flush 0.9%) 10 ml IVP PRN PRN PRN Reason: NEEDED PER PROVIDER ORDERS Sodium Chloride (Normal Saline Flush 0.9%) 10 ml IVP 0100,0900,1700 [facility] Last Admin: 01/12/18 09:38 Dose: Not Given Apixaban [Eliquis] 5 mg PO BID 01/11/18 Aspirin [Aspirin EC] 81 mg PO DAILY 01/11/18 DULoxetine [Cymbalta] 30 mg PO DAILY 01/11/18 Digoxin [Lanoxin] 0.125 mg PO DAILY 01/11/18 Duloxetine HCl [Cymbalta] 60 mg PO DAILY 01/11/18 Furosemide [Lasix] 20 mg PO DAILY 01/11/18 Gabapentin 300 mg PO TID 01/11/18 Insulin Glargine [Lantus] 26 units SQ DAILY 01/11/18 Losartan Potassium [Losartan Potassium] 25 mg PO DAILY 01/11/18 Melatonin [Melatonin] 5 mg PO DAILY 01/11/18 Nitrofurantoin Macrocrystal [Nitrofurantoin] 50 mg PO DAILY 01/11/18 Spironolactone 25 mg PO DAILY 01/11/18 metFORMIN [Glucophage] 1,000 mg PO BIDWM 01/11/18 Acetaminophen/Cod 300/30 [Tylenol #3] 1 tab PO QID PRN 01/12/18 Calcium Carbonate [Tums (Calcium Carbonate 500mg)] 500 mg PO Q4-6H PRN 01/12/18 Levothyroxine Sodium 100 mcg PO QDAC 01/12/18 Levothyroxine Sodium 137 mcg PO QDAC 01/12/18 Magnesium Oxide [Magnesium] 500 mg PO BID 01/12/18 Metoprolol Tartrate [Lopressor] 100 mg PO BID 01/12/18 Morphine Sulfate [Morphine Sulfate ER] 15 mg PO TID 01/12/18 Objective - Vital Signs/Intake & Output Reviewed Vital Signs: Yes Vital Signs: Vital Signs x48h Temp Pulse Pulse Pulse Resp BP BP 01/12/18 12:00 36.7 C 55 L 18 01/12/18 10:20 81 167/102 H 01/12/18 10:19 81 01/12/18 10:10 161/94 H 01/12/18 08:17 36.8 C 94 16 01/12/18 07:57 01/12/18 07:52 36.6 C 93 16 BP BP Pulse Ox 01/12/18 12:00 152/88 H 95 01/12/18 10:20 01/12/18 10:19 167/107 H 01/12/18 10:10 01/12/18 08:17 161/94 H 96 01/12/18 07:57 196/96 H 01/12/18 07:52 185/97 H 94 Intake & Output: Intake & Output 01/09/18 01/10/18 01/11/18 01/12/18 23:59 23:59 23:59 23:59 Intake Total 510 1152.417 Output Total 250 Balance 260 1152.417 - Objective General Appearance: positive: No acute distress, Alert. negative: Lethargic Eyes Bilateral: positive: Normal inspection, PERRL, No lid inflammation, Conjunctivae nml ENT: positive: ENT inspection nml, Pharynx nml, No signs of dehydration. negative: Purulent nasal drainage, Pharyngeal erythema, Oral lesions Neck: positive: Nml inspection, Thyroid nml, No JVD, Trachea midline. negative : Thyromegaly, Lymphadenopathy (R), Lymphadenopathy (L), Stiff neck, Carotid bruit, Swelling/bruising, Tracheal deviation Respiratory: positive: Chest non-tender, No respiratory distress, Breath sounds nml. negative: Wheezes, Rales, Rhonchi Cardiovascular: positive: Regular rate & rhythm, No murmur, No gallop. negative : Irregularly irregular, Extrasystoles, Tachycardia, Bradycardia, Systolic murmur, Diastolic murmur Peripheral Pulses: 2+ Radial (R), 2+ Radial (L), 2+ Dorsalis pedis (R), 2+ Dorsalis pedis (L) Abdomen: positive: Non-tender, No organomegaly, Nml bowel sounds, No distention. negative: Tenderness, Guarding, Rebound Back: positive: Nml inspection. negative: CVA tenderness (R), CVA tenderness (L ) Skin: positive: Color nml, No rash, Warm, Dry. negative: Cyanosis, Diaphoresis , Pallor Extremities: positive: Non-tender, Nml appearance. negative: Calf tenderness, Joint swelling, Wale's sign/cords Neurologic/Psychiatric: positive: Sensation nml, Mood/affect nml. negative: Weakness, Sensory loss, Facial droop, Slurred/abnml speech, Depressed mood/ affect - Lab Results Fish Bones: 01/12/18 05:25 01/12/18 05:25 Other Labs: Lab Results x24hrs 01/12/18 01/12/18 01/12/18 Range/Units 12:25 06:01 05:25 WBC (4.8-10.8) x10^3/uL RBC (4.20-5.40) 10^6/uL Hgb (12.0-16.0) g/dL Hct (37.0-47.0) % MCV (81.0-99.0) fL MCH (27.0-31.0) pg MCHC (32.0-36.0) g/dL RDW (12.0-15.0) % Plt Count (130-450) 10^3/uL MPV (7.9-10.8) fL Neut # (1.5-6.6) 10^3/uL Lymph # (1.5-3.5) 10^3/uL [place] # (0.0-1.0) 10^3/uL Eos # (0.0-0.7) 10^3/uL Baso # (0.0-0.1) 10^3/uL Absolute Nucleated RBC x10^3/uL Nucleated RBC % /100WBC Sodium (135-145) mmol/L Potassium (3.5-5.0) mmol/L Chloride (101-111) mmol/L Carbon Dioxide (21-32) mmol/L Anion Gap (6-13) BUN (6-20) mg/dL Creatinine (0.4-1.0) mg/dL Estimated GFR (MDRD) (>89) Glucose (70-100) mg/dL POC Whole Bld Glucose 181 H 152 H (70 - 100) mg/dL Calcium (8.5-10.3) mg/dL Magnesium (1.7-2.8) mg/dL Total Bilirubin (0.2-1.0) mg/dL AST (10-42) IU/L ALT (10-60) IU/L Alkaline Phosphatase (42-121) IU/L Total Protein (6.7-8.2) g/dL Albumin (3.2-5.5) g/dL Globulin (2.1-4.2) g/dL Albumin/Globulin Ratio (1.0-2.2) Triglycerides ( - 149) mg/dL Cholesterol ( - 199) mg/dL LDL Cholesterol, Calc ( - 129) mg/dL VLDL Cholesterol mg/dL HDL Cholesterol (60 - ) mg/dL LDL/HDL Ratio (<4.4) Cholesterol/HDL Ratio (<4.4) TSH (0.34-5.60) uIU/mL Last Dose Date UNK Last Dose Time UNK Digoxin 0.6 ng/mL 01/12/18 01/12/18 01/12/18 Range/Units 05:25 05:25 05:25 WBC (4.8-10.8) x10^3/uL RBC (4.20-5.40) 10^6/uL Hgb (12.0-16.0) g/dL Hct (37.0-47.0) % MCV (81.0-99.0) fL MCH (27.0-31.0) pg MCHC (32.0-36.0) g/dL RDW (12.0-15.0) % Plt Count (130-450) 10^3/uL MPV (7.9-10.8) fL Neut # (1.5-6.6) 10^3/uL Lymph # (1.5-3.5) 10^3/uL [place] # (0.0-1.0) 10^3/uL Eos # (0.0-0.7) 10^3/uL Baso # (0.0-0.1) 10^3/uL Absolute Nucleated RBC x10^3/uL Nucleated RBC % /100WBC Sodium 134 L (135-145) mmol/L Potassium 4.3 (3.5-5.0) mmol/L Chloride 97 L (101-111) mmol/L Carbon Dioxide 29 (21-32) mmol/L Anion Gap 8.0 (6-13) BUN 16 (6-20) mg/dL Creatinine 0.8 (0.4-1.0) mg/dL Estimated GFR (MDRD) 72 L (>89) Glucose 161 H (70-100) mg/dL POC Whole Bld Glucose (70 - 100) mg/dL Calcium 8.7 (8.5-10.3) mg/dL Magnesium 2.1 (1.7-2.8) mg/dL Total Bilirubin 0.5 (0.2-1.0) mg/dL AST 22 (10-42) IU/L ALT 18 (10-60) IU/L Alkaline Phosphatase 74 (42-121) IU/L Total Protein 7.0 (6.7-8.2) g/dL Albumin 3.6 (3.2-5.5) g/dL Globulin 3.4 (2.1-4.2) g/dL Albumin/Globulin Ratio 1.1 (1.0-2.2) Triglycerides 240 H ( - 149) mg/dL Cholesterol 190 ( - 199) mg/dL LDL Cholesterol, Calc 110 ( - 129) mg/dL VLDL Cholesterol 48 mg/dL HDL Cholesterol 32 L (60 - ) mg/dL LDL/HDL Ratio 3.4 (<4.4) Cholesterol/HDL Ratio 5.9 (<4.4) TSH 0.57 (0.34-5.60) uIU/mL Last Dose Date Last Dose Time Digoxin ng/mL 01/12/18 01/11/18 01/11/18 Range/Units 05:25 23:51 21:05 WBC 6.0 (4.8-10.8) x10^3/uL RBC 5.08 (4.20-5.40) 10^6/uL Hgb 13.3 (12.0-16.0) g/dL Hct 40.7 (37.0-47.0) % MCV 80.2 L (81.0-99.0) fL MCH 26.2 L (27.0-31.0) pg MCHC 32.6 (32.0-36.0) g/dL RDW 15.9 H (12.0-15.0) % Plt Count 298 (130-450) 10^3/uL MPV 7.0 L (7.9-10.8) fL Neut # 4.2 (1.5-6.6) 10^3/uL Lymph # 1.0 L (1.5-3.5) 10^3/uL [place] # 0.6 (0.0-1.0) 10^3/uL Eos # 0.3 (0.0-0.7) 10^3/uL Baso # 0.1 (0.0-0.1) 10^3/uL Absolute Nucleated RBC 0.00 x10^3/uL Nucleated RBC % 0.1 /100WBC Sodium (135-145) mmol/L Potassium (3.5-5.0) mmol/L Chloride (101-111) mmol/L Carbon Dioxide (21-32) mmol/L Anion Gap (6-13) BUN (6-20) mg/dL Creatinine (0.4-1.0) mg/dL Estimated GFR (MDRD) (>89) Glucose (70-100) mg/dL POC Whole Bld Glucose 128 H 116 H (70 - 100) mg/dL Calcium (8.5-10.3) mg/dL Magnesium (1.7-2.8) mg/dL Total Bilirubin (0.2-1.0) mg/dL AST (10-42) IU/L ALT (10-60) IU/L Alkaline Phosphatase (42-121) IU/L Total Protein (6.7-8.2) g/dL Albumin (3.2-5.5) g/dL Globulin (2.1-4.2) g/dL Albumin/Globulin Ratio (1.0-2.2) Triglycerides ( - 149) mg/dL Cholesterol ( - 199) mg/dL LDL Cholesterol, Calc ( - 129) mg/dL VLDL Cholesterol mg/dL HDL Cholesterol (60 - ) mg/dL LDL/HDL Ratio (<4.4) Cholesterol/HDL Ratio (<4.4) TSH (0.34-5.60) uIU/mL Last Dose Date Last Dose Time Digoxin ng/mL Assessment/Plan - Problem List (1) CVA (cerebral vascular accident) Impression: Conclusion/Plan: it seems pt's acute symptoms is resolved. MRI reveals without acute stroke. ECHO is pending expected pt d/c tomorrow continue aspirin, Eliquis, Lipitor pt initially present right side weakness and more slurred speech, but waned down the symptoms. Pt may have new stroke or just TIA. MRI, follow up US of Carotid. Pt had CTA of brain and neck recently, revealed chronic stenosis ECHO resume home Aspirin, Eliquis Lipid panel study add Lipitor hold blood pressure meds, will vital monitor and adjust as needed PT/OT/ST (2) Atrial fibrillation Conclusion/Plan: stable, continue metoprolol continue monitor tele, vital pt's HR is well controlled. resume Digix and Metoprolol tele and vital monitor resume Eliquis INR is 1.4 (3) Diabetes Conclusion/Plan: continue slide scale, ACHS resume home Lantus slide scale, ACHS hypoglycemia (4) HTN (hypertension) Conclusion/Plan: resume Metoprolol will hold BP meds, will closely monitor (5) Hypothyroidism Conclusion/Plan: TSH normal, continue meds check TSH, and resume home Levoth (6) Hyponatremia Conclusion/Plan: improved to Na 134 continue gently IVF of NS it appears hypovolume and hyponatremia mild IVF of NS daily lab monitor electrolytes Qualifiers: CVA mechanism: unspecified Qualified Code(s): I63.9 - Cerebral infarction, unspecified (2) Atrial fibrillation Qualifiers: Atrial fibrillation type: chronic Qualified Code(s): I48.2 - Chronic atrial fibrillation (3) Diabetes Qualifiers: Diabetes mellitus type: type 2 Diabetes mellitus 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
[2018-01-12] MEDS ORDERED: SODIUM CHLORIDE 0.9% 1,000 ML IV SCH (14:56)
--- NOTE | 2018-01-12 18:25 | CONSULTATION NOTE ---
Palliative Care Consultation - Referral Referring Provider: Dave CHURCHILL Time of Visit: 2961-8432 Referral setting: Hospitalized patient Referral Reason: Late Effects CVA/Goals of Care - Information Sources Records reviewed: RN notes reviewed, Previous records reviewed ([facility]) History/Review of Systems obtained from: Patient, Family (met with alek Moraes/Jessica; Dennys Schwarz) Exam limitations: Clinical condition (patient with STM; cognitive response slow; ) - History of Present Illness Brief History of Present Illness: This is a very pleasant 67-year-old woman who has a long and complex history for multiple strokes, with her initial stroke in 2003. She was known to have a follow-up stroke at that point in time, another one 2 years later in 2005, and most recently she was admitted on -12/31/17 found to have multiple areas of subacute ischemic strokes, and different vascular territories consistent with multiple emboli out ischemic strokes. There was no known hemorrhage or mass-effect. Her MRI also showed multiple prior strokes. Patient's deficits included impaired speech, some changes in swallow, as well as an exacerbation of her already compromised fine motor status. When she returned home, she had repeated falls, and with her cognitive deficits, was impulsive, poor insight to her limitations and was unable to be left alone without 24 hour supervision. And follow-up with her primary care Dr. Josephine Noriega, arrangements were made for admission to [facility], Unfortunately she had several falls and it was not a smooth transition, and was taken home again by daughter's. He had been providing 24-hour supervision, this is somewhat unsustainable with their own lives and commitments, and then patient presented further with increased weakness on her right side progression of her slurred speech, and more difficulty with ambulation. Daughter describes episodes as somewhat myoclonic in nature, she would walk 2 or 3 feet, get quite shaky starting with tremors on her right side, then traveled to her lower extremities, resulting in her legs giving out. That she has had multiple falls, and has concern for being able to manage safely at home given her current status. She just had an MRI without contrast, it showed expected evolution of recent infarcts, but no other MRI evidence for new or acute intracranial abnormality. But given her progressive functional decline, increased trouble with balance, ongoing neurologic compromise, and cognitive deficits she will receiving further workup with an echo, follow-up with PT/OT/ST and looking at placement at a nursing home facility under her Medicare benefit for increased support. Palliative care was requested, originally because patient was thought to have had yet another serious stroke, but all are struggling, patient and daughters, to find a safe plan as well as define goals of care. Patient's hope is to return home, she has very limited insight into her limitations, daughters are unable to sustain 24 hour care support, and are looking for patient to get support for improving functional status as well as safety issues, and await her most recent stroke recovery to define "new baseline". Medical/Surgical History - Past Medical History Cardiovascular: reports: Atrial fibrillation, Other (new pulmonary hypertension last admit) Respiratory: reports: Asthma Neuro: reports: CVA, TIA, Peripheral neuropathy, Tremors Endocrine/Autoimmune: reports: Type 2 diabetes, Systemic lupus erythematosus GI: reports: GERD, GI bleed, Ulcers : reports: Incontinence, Chronic bladder infection HEENT: reports: Chronic vision loss Psych: reports: Depression, Anxiety, Claustrophobia Musculoskeletal: reports: Osteoarthritis, Fibromyalgia Derm: reports: None MRSA Hx?: No - Past Surgical History General: reports: Bowel surgery, Colonoscopy Ortho: reports: 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 She has 3 daughters one who lives in [place], Aleisha his been mostly overseeing her care and providing advocacy, and her daughter Jessica.Patient has lived alone, does have [facility], does have support through community outreach with Dennys Mercado. She does have [facility] registered nurse hh case manager [place] Family History - Family History Family History: Mother: , Diabetes, Type 2, Father: , Cancer, Brother: Alive and Well (both brothers with cancer) Medications/Allergies - Medications Active Medication List: Active Medications Acetaminophen (Tylenol) 650 mg [place] Q6HR PRN PRN Reason: FEVER > 100.5 F Acetaminophen/Codeine Phosphate (Tylenol #3) 1 tab PO QID PRN PRN Reason: PAIN Last Admin: 01/12/18 10:11 Dose: 1 tab Apixaban (Eliquis) 5 mg PO BID LAURYN Last Admin: 01/12/18 09:34 Dose: 5 mg Aspirin (Ty) 81 mg PO DAILY [facility] Last Admin: 01/12/18 09:33 Dose: 81 mg Atorvastatin Calcium (Lipitor) 40 mg PO QPM [facility] Last Admin: 01/11/18 21:21 Dose: 40 mg Digoxin (Lanoxin) 125 mcg PO DAILY [facility] Last Admin: 01/12/18 10:11 Dose: 125 mcg Duloxetine HCl (Cymbalta) 30 mg PO DAILY [facility] Last Admin: 01/12/18 09:37 Dose: 30 mg Famotidine (Pepcid) 20 mg PO DAILY [facility] Last Admin: 01/12/18 09:33 Dose: 20 mg Furosemide (Lasix) 20 mg PO DAILY [facility] Last Admin: 01/12/18 10:11 Dose: 20 mg Gabapentin (Neurontin) 300 mg PO TID [facility] Last Admin: 01/12/18 17:10 Dose: 300 mg Insulin Aspart (Novolog) 1 - 9 unit SUBQ 0800,1200,1700,2100 [facility] PRN Reason: Protocol Last Admin: 01/12/18 17:15 Dose: 1 unit Insulin Glargine (Lantus Solostar) 26 unit SUBQ DAILY [facility] Last Admin: 01/12/18 10:12 Dose: 26 unit Levothyroxine Sodium (Synthroid) 100 mcg PO QDAC [facility] Metoprolol Tartrate (Lopressor) 100 mg PO BID [facility] Last Admin: 01/12/18 10:10 Dose: 100 mg Morphine Sulfate () 15 mg PO TID [facility] Last Admin: 01/12/18 12:46 Dose: 15 mg Ondansetron HCl (Zofran Inj) 4 mg IVP Q6HR PRN PRN Reason: Nausea / Vomiting Polyethylene Glycol (Miralax) 17 gm PO DAILY [facility] Last Admin: 01/12/18 09:38 Dose: Not Given Sodium Chloride (Normal Saline Flush 0.9%) 10 ml IVP PRN PRN PRN Reason: NEEDED PER PROVIDER ORDERS Sodium Chloride (Normal Saline Flush 0.9%) 10 ml IVP 0100,0900,1700 [facility] Last Admin: 01/12/18 17:15 Dose: 10 ml Apixaban [Eliquis] 5 mg PO BID 01/11/18 Aspirin [Aspirin EC] 81 mg PO DAILY 01/11/18 DULoxetine [Cymbalta] 30 mg PO DAILY 01/11/18 Digoxin [Lanoxin] 0.125 mg PO DAILY 01/11/18 Duloxetine HCl [Cymbalta] 60 mg PO DAILY 01/11/18 Furosemide [Lasix] 20 mg PO DAILY 01/11/18 Gabapentin 300 mg PO TID 01/11/18 Insulin Glargine [Lantus] 26 units SQ DAILY 01/11/18 Losartan Potassium [Losartan Potassium] 25 mg PO DAILY 01/11/18 Melatonin [Melatonin] 5 mg PO DAILY 01/11/18 Nitrofurantoin Macrocrystal [Nitrofurantoin] 50 mg PO DAILY 01/11/18 Spironolactone 25 mg PO DAILY 01/11/18 metFORMIN [Glucophage] 1,000 mg PO BIDWM 01/11/18 Acetaminophen/Cod 300/30 [Tylenol #3] 1 tab PO QID PRN 01/12/18 Calcium Carbonate [Tums (Calcium Carbonate 500mg)] 500 mg PO Q4-6H PRN 01/12/18 Levothyroxine Sodium 100 mcg PO QDAC 01/12/18 Levothyroxine Sodium 137 mcg PO QDAC 01/12/18 Magnesium Oxide [Magnesium] 500 mg PO BID 01/12/18 Metoprolol Tartrate [Lopressor] 100 mg PO BID 01/12/18 Morphine Sulfate [Morphine Sulfate ER] 15 mg PO TID 01/12/18 - Allergies Allergies/Adverse Reactions: Allergies Allergy/AdvReac Type Severity Reaction Status Date / Time albuterol Allergy Unknown Verified 01/11/18 16:19 cortisone Allergy Edema Verified 01/11/18 16:19 latex Allergy Hives Verified 01/11/18 16:19 prednisone Allergy Edema Verified 01/11/18 16:19 [id number] Reductase Allergy Unknown Verified 01/11/18 16:19 Inhibitor oxycodone AdvReac Dizziness Verified 01/11/18 16:19 Review of Systems - Constitutional Constitutional: reports: Fatigue - Eyes Eyes: reports: Vision loss, Dipolpia - Ears, Nose & Throat Ears, Nose & Throat: reports: Hearing loss (mild), Dry mouth - Cardiovascular Cardiovascular: reports: Irregular heart rate, Chest pain (intermittent; unable to describe descriptors or history/frequency), Decr. exercise tolerance - Respiratory Respiratory: reports: SOB with exertion. denies: SOB at rest - Gastrointestinal Gastrointestinal: reports: Good appetite. denies: Constipation, Diarrhea, Reflux/heartburn - Genitourinary Genitourinary: reports: Frequency, Incontinence - Musculoskeletal Musculoskeletal: reports: Back pain, Muscle aches, Stiffness, Limited range of motion (bilat. shouldder), Muscle weakness, Assistive devices (uses walker; reports only able to walk a few steps before starts tremors), Other (reports pain on tailbone after several falls;) - Integumentary Integumentary: reports: Dryness - Neurological Neurological: reports: General weakness, Memory problems, Other (slow speech; correct answers but difficult to tract) - Psychiatric Psychiatric: reports: Depression, Anxiety - Endocrine Endocrine: reports: Diabetes type 2 - Hematologic/Lymphatic Hematologic/Lymphatic: reports: Recurrent infections (recurrent urine infections ), Other (recent hypomagnesia) - All Other Systems All Other Systems: reports: Reviewed and negative Physical Exam - Vital Signs Vital Signs: Vital Signs x48h Temp Pulse Resp BP Pulse Ox 01/12/18 16:00 36.5 C 80 18 164/78 H 93 01/12/18 12:00 36.7 C 55 L 18 152/88 H 95 - Physical Exam General Appearance: positive: Mild distress, Anxious (regarding discharge jamie) Eyes Bilateral: positive: Normal inspection, Other (periorbital edema) ENT: positive: No signs of dehydration Neck: positive: No JVD, Trachea midline Cardiovascular: positive: Irregular Respiratory: positive: Diminished throughout Abdomen: positive: Non-tender, Soft, Nml bowel sounds, Distended Skin: positive: Pallor, Dryness, Bruising (right thigh from fall; right upper arm from recent fall) Extremities: positive: Pedal edema (trace bilateral) Neurologic/Psychiatric: positive: Oriented x3, Weakness, Flat affect Palliative Care - POLST Patient has POLST: Yes POLST Status: DNR, Selective Treatment Pain: Location (pain bilateral shoulder discomfort; acute on tail bone; generalized all over pain from fibromyalgia) Tiredness/Fatigue: Moderate (4-6) Drowsiness/Sedation: Moderate (4-6) Nausea: None Depression: Moderate (4-6) Anxiety: Moderate (4-6) Dyspnea: Mild (1-3) Anorexia: None Sleep: Sleeps well Constipation: Yes, Opoid induced, Managed Performance Status: Patiently is currently dependent for all ADLs, needs some cueing for ambulation and safety. She does need assistance with toileting as she is incontinent and uses pads, she needs oversight for her medications. She will need assistance with meal prep, is only able to ambulate short distances without increase in tremors and loss of balance. Has lost strength both lower extremity as well as fine motor coordination. - Palliative Care Discussion: Patient does express feelings of hopelessness, reports there is nothing they can do about her strokes, is feeling overwhelmed and vulnerable in the context that she wants to return home. Her family is quite clear this is not a safe situation, patient has some but limited insight into this. We did discuss at length the need for patient to have a safe discharge plan, she does need 24- hour supervision both related to cognitive issues and her ongoing fall risk. She is quite hopeful as she has recovered in the past to some level of independence, would like an opportunity to feel to get stronger and work on things that she might do to help herself. Daughters are very concerned about the long-term, patient already has LAN, Both have young families and jobs are not able to commit to 24 hour care. Patient able to acknowledge daughter's concerns, the very much wants to return home. Discussed with daughter Aleisha, need for identified durable power of health attorney law clerk, at this point in time she is not designated a single agent. Did review simple form, Aleisha has been the advocate, discussed can list all 3 on the form, but if she were to have a catastrophic stroke or need assistance with decision-making, this would make this more clear. She will assist patient with filling it out, and we will have either myself or the social worker health services facilitate getting this notarized tomorrow. I did review current [facility] on file from 2014 , this is a DNAR and limited additional interventions, recent one from [facility] though does have DNA are and comfort measures. Had reviewed with Aleisha current wishes, will confirm with patient tomorrow. Patient is a do not attempt resuscitation with probable bracelet on here at hospital. Results - Lab Results Lab results reviewed: Yes Fish Bones: 01/12/18 05:25 01/12/18 05:25 Lab and Imaging Results: Lab Results x24hrs 01/12/18 01/12/18 01/12/18 Range/Units 17:09 12:25 06:01 WBC (4.8-10.8) x10^3/uL RBC (4.20-5.40) 10^6/uL Hgb (12.0-16.0) g/dL Hct (37.0-47.0) % MCV (81.0-99.0) fL MCH (27.0-31.0) pg MCHC (32.0-36.0) g/dL RDW (12.0-15.0) % Plt Count (130-450) 10^3/uL MPV (7.9-10.8) fL Neut # (1.5-6.6) 10^3/uL Lymph # (1.5-3.5) 10^3/uL Robeson # (0.0-1.0) 10^3/uL Eos # (0.0-0.7) 10^3/uL Baso # (0.0-0.1) 10^3/uL Absolute Nucleated RBC x10^3/uL Nucleated RBC % /100WBC Sodium (135-145) mmol/L Potassium (3.5-5.0) mmol/L Chloride (101-111) mmol/L Carbon Dioxide (21-32) mmol/L Anion Gap (6-13) BUN (6-20) mg/dL Creatinine (0.4-1.0) mg/dL Estimated GFR (MDRD) (>89) Glucose (70-100) mg/dL POC Whole Bld Glucose 142 H 181 H 152 H (70 - 100) mg/dL Calcium (8.5-10.3) mg/dL Magnesium (1.7-2.8) mg/dL Total Bilirubin (0.2-1.0) mg/dL AST (10-42) IU/L ALT (10-60) IU/L Alkaline Phosphatase (42-121) IU/L Total Protein (6.7-8.2) g/dL Albumin (3.2-5.5) g/dL Globulin (2.1-4.2) g/dL Albumin/Globulin Ratio (1.0-2.2) Triglycerides ( - 149) mg/dL Cholesterol ( - 199) mg/dL LDL Cholesterol, Calc ( - 129) mg/dL VLDL Cholesterol mg/dL HDL Cholesterol (60 - ) mg/dL LDL/HDL Ratio (<4.4) Cholesterol/HDL Ratio (<4.4) TSH (0.34-5.60) uIU/mL Last Dose Date Last Dose Time Digoxin ng/mL 01/12/18 01/12/18 01/12/18 Range/Units 05:25 05:25 05:25 WBC (4.8-10.8) x10^3/uL RBC (4.20-5.40) 10^6/uL Hgb (12.0-16.0) g/dL Hct (37.0-47.0) % MCV (81.0-99.0) fL MCH (27.0-31.0) pg MCHC (32.0-36.0) g/dL RDW (12.0-15.0) % Plt Count (130-450) 10^3/uL MPV (7.9-10.8) fL Neut # (1.5-6.6) 10^3/uL Lymph # (1.5-3.5) 10^3/uL Robeson # (0.0-1.0) 10^3/uL Eos # (0.0-0.7) 10^3/uL Baso # (0.0-0.1) 10^3/uL Absolute Nucleated RBC x10^3/uL Nucleated RBC % /100WBC Sodium (135-145) mmol/L Potassium (3.5-5.0) mmol/L Chloride (101-111) mmol/L Carbon Dioxide (21-32) mmol/L Anion Gap (6-13) BUN (6-20) mg/dL Creatinine (0.4-1.0) mg/dL Estimated GFR (MDRD) (>89) Glucose (70-100) mg/dL POC Whole Bld Glucose (70 - 100) mg/dL Calcium (8.5-10.3) mg/dL Magnesium (1.7-2.8) mg/dL Total Bilirubin (0.2-1.0) mg/dL AST (10-42) IU/L ALT (10-60) IU/L Alkaline Phosphatase (42-121) IU/L Total Protein (6.7-8.2) g/dL Albumin (3.2-5.5) g/dL Globulin (2.1-4.2) g/dL Albumin/Globulin Ratio (1.0-2.2) Triglycerides 240 H ( - 149) mg/dL Cholesterol 190 ( - 199) mg/dL LDL Cholesterol, Calc 110 ( - 129) mg/dL VLDL Cholesterol 48 mg/dL HDL Cholesterol 32 L (60 - ) mg/dL LDL/HDL Ratio 3.4 (<4.4) Cholesterol/HDL Ratio 5.9 (<4.4) TSH 0.57 (0.34-5.60) uIU/mL Last Dose Date UNK Last Dose Time UNK Digoxin 0.6 ng/mL 01/12/18 01/12/18 01/11/18 Range/Units 05:25 05:25 23:51 WBC 6.0 (4.8-10.8) x10^3/uL RBC 5.08 (4.20-5.40) 10^6/uL Hgb 13.3 (12.0-16.0) g/dL Hct 40.7 (37.0-47.0) % MCV 80.2 L (81.0-99.0) fL MCH 26.2 L (27.0-31.0) pg MCHC 32.6 (32.0-36.0) g/dL RDW 15.9 H (12.0-15.0) % Plt Count 298 (130-450) 10^3/uL MPV 7.0 L (7.9-10.8) fL Neut # 4.2 (1.5-6.6) 10^3/uL Lymph # 1.0 L (1.5-3.5) 10^3/uL Robeson # 0.6 (0.0-1.0) 10^3/uL Eos # 0.3 (0.0-0.7) 10^3/uL Baso # 0.1 (0.0-0.1) 10^3/uL Absolute Nucleated RBC 0.00 x10^3/uL Nucleated RBC % 0.1 /100WBC Sodium 134 L (135-145) mmol/L Potassium 4.3 (3.5-5.0) mmol/L Chloride 97 L (101-111) mmol/L Carbon Dioxide 29 (21-32) mmol/L Anion Gap 8.0 (6-13) BUN 16 (6-20) mg/dL Creatinine 0.8 (0.4-1.0) mg/dL Estimated GFR (MDRD) 72 L (>89) Glucose 161 H (70-100) mg/dL POC Whole Bld Glucose 128 H (70 - 100) mg/dL Calcium 8.7 (8.5-10.3) mg/dL Magnesium 2.1 (1.7-2.8) mg/dL Total Bilirubin 0.5 (0.2-1.0) mg/dL AST 22 (10-42) IU/L ALT 18 (10-60) IU/L Alkaline Phosphatase 74 (42-121) IU/L Total Protein 7.0 (6.7-8.2) g/dL Albumin 3.6 (3.2-5.5) g/dL Globulin 3.4 (2.1-4.2) g/dL Albumin/Globulin Ratio 1.1 (1.0-2.2) Triglycerides ( - 149) mg/dL Cholesterol ( - 199) mg/dL LDL Cholesterol, Calc ( - 129) mg/dL VLDL Cholesterol mg/dL HDL Cholesterol (60 - ) mg/dL LDL/HDL Ratio (<4.4) Cholesterol/HDL Ratio (<4.4) TSH (0.34-5.60) uIU/mL Last Dose Date Last Dose Time Digoxin ng/mL 01/11/18 Range/Units 21:05 WBC (4.8-10.8) x10^3/uL RBC (4.20-5.40) 10^6/uL Hgb (12.0-16.0) g/dL Hct (37.0-47.0) % MCV (81.0-99.0) fL MCH (27.0-31.0) pg MCHC (32.0-36.0) g/dL RDW (12.0-15.0) % Plt Count (130-450) 10^3/uL MPV (7.9-10.8) fL Neut # (1.5-6.6) 10^3/uL Lymph # (1.5-3.5) 10^3/uL Robeson # (0.0-1.0) 10^3/uL Eos # (0.0-0.7) 10^3/uL Baso # (0.0-0.1) 10^3/uL Absolute Nucleated RBC x10^3/uL Nucleated RBC % /100WBC Sodium (135-145) mmol/L Potassium (3.5-5.0) mmol/L Chloride (101-111) mmol/L Carbon Dioxide (21-32) mmol/L Anion Gap (6-13) BUN (6-20) mg/dL Creatinine (0.4-1.0) mg/dL Estimated GFR (MDRD) (>89) Glucose (70-100) mg/dL POC Whole Bld Glucose 116 H (70 - 100) mg/dL Calcium (8.5-10.3) mg/dL Magnesium (1.7-2.8) mg/dL Total Bilirubin (0.2-1.0) mg/dL AST (10-42) IU/L ALT (10-60) IU/L Alkaline Phosphatase (42-121) IU/L Total Protein (6.7-8.2) g/dL Albumin (3.2-5.5) g/dL Globulin (2.1-4.2) g/dL Albumin/Globulin Ratio (1.0-2.2) Triglycerides ( - 149) mg/dL Cholesterol ( - 199) mg/dL LDL Cholesterol, Calc ( - 129) mg/dL VLDL Cholesterol mg/dL HDL Cholesterol (60 - ) mg/dL LDL/HDL Ratio (<4.4) Cholesterol/HDL Ratio (<4.4) TSH (0.34-5.60) uIU/mL Last Dose Date Last Dose Time Digoxin ng/mL Impression and Recommendations - Palliative Care Impression: This is a 67-year-old woman with a long history of strokes, most recently noted on her admit on 12/29/2017 to have new stroke activity. She continues with residual deficits, and concern for functional decline, ongoing cognitive deficits that are worsening, as well as concern about fall risk and ability to manage independently at home. Patient would benefit from rehab stay, increased support, and more intensive therapy to define what her current level of functioning both cognitively and physically is. Palliative care to help facilitate conversations regarding goals of care. Recommendations/Counseling Done: 1.Cerebrovascular accident, embolic. Patient does not have new evidence of new or acute intracranial abnormality this stay. She still continues to suffer from the residual of her recent identified multiple embolic ischemic areas found on 12/29 admit. She has had continued functional and cognitive decline, she does present with poor balance, difficulty tolerating ambulating more than a few steps, and would benefit from some intensive rehab support. Patient is quite motivated as she wants to return to a level of independence, and is hopeful to return home. She does have some residual point tenderness in her coccyx, and soreness in her right hip from a recent fall on 01/07. 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 She does have [facility], if she would return home she would benefit from the fall notification [facility]. She is on medication for her atrial fibrillation, concern that some of her acute symptoms are TIAs. 2.Advanced care planning. Family meeting with patient, daughter Aleisha, daughter Jessica was present for most of the meeting, and patient advocate Dennys Mercado. Discussed at length concerns of patient, family, and goals of care. Goal is for patient to transition under Medicare benefit, to nursing home facility, for intensive rehab with the goal to regain as much independence as possible. [facility], Aleisha has several Nursing Homes in [place], she would like to pursue and give mother final choice. [facility] choices [facility] [place], this will allow family access and ability to oversee her care. Aleisha will contact social worker health services tomorrow, with her top 3 choices to send packets 2. Current plan discharge would be for Friday a.m., plan to complete DPOA paperwork, and solidify or confirm [facility]. Time Spent: 105 minutes with greater than 50% of this done in counseling regarding family conference, coordination of care with hospitalist and social worker health services, anticipatory guidance and defining goals of care.
[2018-01-12] MEDS: ATORVASTATIN 40 MG TABLET PO SCH (21:37)
[2018-01-13] MEDS: SODIUM CHLORIDE FLUSH 0.9% 10 ML SYRINGE IVP SCH ×3 (01:14→17:40)
[2018-01-13 05:04] LABS: BASOPHILS # (AUTO) 0.1 10^3/uL (0.0-0.1); BASOPHILS % (AUTO) 1.2 %; EOSINOPHILS # (AUTO) 0.3 10^3/uL (0.0-0.7); HGB - HEMOGLOBIN 13.3 g/dL (12.0-16.0); LYMPHOCYTES # (AUTO) 1.5 10^3/uL (1.5-3.5); LYMPHOCYTES % (AUTO) 22.4 %; MEAN CORPUSCULAR HEMOGLOBIN 25.8 pg (27.0-31.0); MEAN CORPUSCULAR HGB CONC 31.7 g/dL (32.0-36.0); MEAN CORPUSCULAR VOLUME 81.5 fL (81.0-99.0); MEAN PLATELET VOLUME 7.2 fL (7.9-10.8); MONOCYTES # (AUTO) 0.7 10^3/uL (0.0-1.0); MONOCYTES % (AUTO) 10.6 %; NEUTROPHILS # (AUTO) 4.2 10^3/uL (1.5-6.6); NEUTROPHILS % (AUTO) 61.8 %; PLT - PLATELET COUNT 316 10^3/uL (130-450); RED BLOOD COUNT 5.14 10^6/uL (4.20-5.40); WHITE BLOOD COUNT 6.8 x10^3/uL (4.8-10.8)
[2018-01-13 05:18] LABS: ALBUMIN 3.6 g/dL (3.2-5.5); ALBUMIN/GLOBULIN RATIO 0.9 (1.0-2.2); BILIRUBIN,TOTAL 0.7 mg/dL (0.2-1.0); CALCIUM 8.8 mg/dL (8.5-10.3); CREATININE 0.8 mg/dL (0.4-1.0); TOTAL PROTEIN 7.4 g/dL (6.7-8.2)
[2018-01-13] MEDS: GABAPENTIN 300 MG CAPSULE PO SCH ×3 (06:12→21:53)
[2018-01-13] MEDS: MORPHINE ER 15 MG TABLET PO SCH ×3 (06:12→21:53)
[2018-01-13] MEDS ORDERED: LEVOTHYROXINE 100 MCG TABLET PO SCH (07:00)
[2018-01-13] MEDS: FUROSEMIDE 20 MG TABLET PO SCH (08:45)
[2018-01-13] MEDS: FAMOTIDINE 20 MG TABLET PO SCH (08:46)
[2018-01-13] MEDS: DIGOXIN 125 MCG TABLET PO SCH (08:46)
[2018-01-13] MEDS: METOPROLOL TARTRATE 50 MG TABLET PO SCH ×2 (08:47→20:46)
[2018-01-13] MEDS: POLYETHYLENE GLYCOL 3350 17 GM PACKET PO SCH (08:47)
[2018-01-13] MEDS: APIXABAN 2.5 MG TABLET PO SCH ×2 (08:47→20:47)
[2018-01-13] MEDS: DULoxetine 30 MG CAPSULE PO SCH (08:47)
[2018-01-13] MEDS: INSULIN ASPART 300 UNIT/3 ML PEN SUBQ SCH ×4 (08:51→20:47)
[2018-01-13] MEDS: INSULIN GLARGINE 300 UNIT/3 ML PEN SUBQ SCH (08:52)
[2018-01-13] MEDS ORDERED: ASPIRIN CHEW 81 MG TABLET PO SCH (09:00)
--- NOTE | 2018-01-13 14:00 | PROVIDER PROGRESS NOTE ---
Assessment/Plan - Problem List (1) Diabetes mellitus type 2, controlled, with complications Assessment/Plan: The patient has a long-standing history of DM type 2 and is treated with daily scheduled Lantus at 26 units and Metformin 1000mg PO BID. A hemoglobin A1C was checked on 01/11/18 and 6.9%. Early AM blood sugar was 142. Plan: Hold metformin as per hospital protocol, and continue to monitor blood sugars and Lantus QD. (2) Anticoagulant long-term use Assessment/Plan: The patient has had several TIAs/CVAs despite being adequately anticoagulated. She currently takes Eliquis, which is to continue while in the hospital. She has not having adverse reactions such as brain or GI bleeding. Plan: Continue current medications. (3) Atrial fibrillation Qualifiers: Atrial fibrillation type: chronic Qualified Code(s): I48.2 - Chronic atrial fibrillation Assessment/Plan: Patient has had a-fib for several years and was noted to have an enlarged left atria. She takes metoprolol and digoxin at home, which will be resumed. Plan: Continue rate control medications. (4) CVA (cerebral vascular accident) Qualifiers: CVA mechanism: unspecified Qualified Code(s): I63.9 - Cerebral infarction, unspecified Assessment/Plan: The patient presented this time to the ED with right sided weakness and slurred speech, which is nearly resolved upon exam today. All testing/work up for CVA is negative. The patient underwent a head CT upon admission which showed no acute changes. A brain MRI was completed and showed no changes since previous admission on 12/30/17. Carotid dopplers were completed and also showed no abnormalities. The patient should now have 24 hour care, and social work is assisting with this. Plan: Resume antihypertensives and monitor for mental status changes. (5) Hypothyroidism Qualifiers: Hypothyroidism type: unspecified Qualified Code(s): E03.9 - Hypothyroidism , unspecified - Current Meds Current Meds: Current Medications Generic Name Dose Route Start Last Admin Trade Name Freq PRN Reason Stop Dose Admin Acetaminophen/Codeine Phosphate 1 tab 01/12/18 07:58 01/12/18 10:11 Tylenol #3 PO 1 tab QID PRN Administration PAIN Apixaban 5 mg 01/12/18 08:00 01/13/18 08:47 Eliquis PO 5 mg BID LAURYN Administration Aspirin 81 mg 01/13/18 09:00 01/13/18 08:57 [facility] [place] Aspirin PO 81 mg DAILY LAURYN Administration Atorvastatin Calcium 40 mg 01/11/18 21:00 01/12/18 21:37 Lipitor PO 40 mg QPM LAURYN Administration Digoxin 125 mcg 01/12/18 09:00 01/13/18 08:46 Lanoxin PO 125 mcg DAILY LAURYN Administration Duloxetine HCl 30 mg 01/12/18 09:00 01/13/18 08:47 Cymbalta PO 30 mg DAILY LAURYN Administration Famotidine 20 mg 01/12/18 09:00 01/13/18 08:46 Pepcid PO 20 mg DAILY LAURYN Administration Furosemide 20 mg 01/12/18 09:00 01/13/18 08:45 Lasix PO 20 mg DAILY LAURYN Administration Gabapentin 300 mg 01/12/18 08:00 01/13/18 13:54 Neurontin PO 300 mg TID LAURYN Administration Insulin Aspart 1 - 9 unit 01/11/18 21:00 01/13/18 11:51 Novolog SUBQ 3 unit 0800,1200,1700,2100 LAURYN Administration Protocol Insulin Glargine 26 unit 01/12/18 09:00 01/13/18 08:52 Lantus Solostar SUBQ 26 unit DAILY LAURYN Administration Levothyroxine Sodium 100 mcg 01/13/18 07:00 01/13/18 06:12 Synthroid PO 100 mcg QDAC LAURYN Administration Metoprolol Tartrate 100 mg 01/12/18 09:00 01/13/18 08:47 Lopressor PO 100 mg BID LAURYN Administration Morphine Sulfate 15 mg 01/12/18 12:00 01/13/18 13:54 PO 15 mg TID LAURYN Administration Polyethylene Glycol 17 gm 01/12/18 09:00 01/13/18 08:47 Miralax PO Not Given DAILY [facility] Sodium Chloride 10 ml 01/12/18 01:00 01/13/18 08:47 Normal Saline Flush 0.9% IVP 10 ml 0100,0900,1700 LAURYN Administration - Lab Result Lab results reviewed: Yes Fish Bone Diagrams: 01/13/18 04:35 01/13/18 04:35 - EKG Results EKG Interpreted Independently: Yes EKG Comparison: Unchanged from prior EKG - Diagnostic Imaging Results Diagnostic Imaging Results: Prelim report reviewed, Final report reviewed Subjective - Subjective Patient Reports: No Complaints Nursing Reports: No Complaints Objective Vital Signs: Vital Signs - 24 hr 01/12/18 01/12/18 01/13/18 16:00 20:17 00:00 Temperature 36.5 C 36.5 C 36.5 C Heart Rate [ 80 86 76 Radial] Respiratory 18 20 18 Rate Blood Pressure [Left Brachial artery] Blood Pressure 164/78 H 170/84 H 162/91 H [Right Brachial artery] O2 Saturation 93 94 92 01/13/18 01/13/18 06:00 08:13 Temperature 36.9 C 36.3 C L Heart Rate [ 69 69 Radial] Respiratory 18 16 Rate Blood Pressure 155/111 H [Left Brachial artery] Blood Pressure 162/96 H [Right Brachial artery] O2 Saturation 92 95 Oxygen O2 Source Room air I&O (Last 24 Hrs): Intake and Output Totals x24h 01/11/18 01/12/18 01/13/18 23:59 23:59 23:59 Intake Total 510 2412.417 320 Output Total 250 Balance 260 2412.417 320 General: Alert, Oriented x3, No acute distress, Other (STM loss, 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.) HEENT: Atraumatic, PERRLA Neck: Supple, No JVD Lymphatic: no adenopathy Neuro: Alert, Focal Deficits, Speech Slurred, Oriented Times 3 Cardiovascular: Normal S1, Normal S2 Respiratory: Chest non-tender, No respiratory distress, Breath sounds nml Abdomen: Normal bowel sounds, Soft, No tenderness, No masses Extremities: No clubbing, No cyanosis - Results Results: Laboratory Results WBC 6.8 x10^3/uL (4.8-10.8) 01/13/18 04:35 RBC 5.14 10^6/uL (4.20-5.40) 01/13/18 04:35 Hgb 13.3 g/dL (12.0-16.0) 01/13/18 04:35 Hct 41.9 % (37.0-47.0) 01/13/18 04:35 MCV 81.5 fL (81.0-99.0) 01/13/18 04:35 MCH 25.8 pg (27.0-31.0) L 01/13/18 04:35 MCHC 31.7 g/dL (32.0-36.0) L 01/13/18 04:35 RDW 16.0 % (12.0-15.0) H 01/13/18 04:35 Plt Count 316 10^3/uL (130-450) 01/13/18 04:35 MPV 7.2 fL (7.9-10.8) L 01/13/18 04:35 Neut # 4.2 10^3/uL (1.5-6.6) 01/13/18 04:35 Lymph # 1.5 10^3/uL (1.5-3.5) 01/13/18 04:35 [place] # 0.7 10^3/uL (0.0-1.0) 01/13/18 04:35 Eos # 0.3 10^3/uL (0.0-0.7) 01/13/18 04:35 Baso # 0.1 10^3/uL (0.0-0.1) 01/13/18 04:35 Absolute Nucleated RBC 0.01 x10^3/uL 01/13/18 04:35 Nucleated RBC % 0.1 /100WBC 01/13/18 04:35 PT 15.3 secs (9.9-12.6) H 01/11/18 16:55 INR 1.4 (0.8-1.2) H 01/11/18 16:55 APTT 36.7 secs (24.9-33.3) H 01/11/18 16:55 Sodium 139 mmol/L (135-145) 01/13/18 04:35 Potassium 4.1 mmol/L (3.5-5.0) 01/13/18 04:35 Chloride 102 mmol/L (101-111) 01/13/18 04:35 Carbon Dioxide 28 mmol/L (21-32) 01/13/18 04:35 Anion Gap 9.0 (6-13) 01/13/18 04:35 BUN 15 mg/dL (6-20) 01/13/18 04:35 Creatinine 0.8 mg/dL (0.4-1.0) 01/13/18 04:35 Estimated GFR (MDRD) 72 (>89) L 01/13/18 04:35 Glucose 142 mg/dL (70-100) H 01/13/18 04:35 POC Whole Bld Glucose 117 mg/dL (70 - 100) H 01/13/18 01:29 Glycated Hemoglobin 6.9 % (4.6-6.2) H 01/11/18 16:55 Estim Average Glucose 151 (70-100) H 01/11/18 16:55 Calcium 8.8 mg/dL (8.5-10.3) 01/13/18 04:35 Magnesium 2.1 mg/dL (1.7-2.8) 01/12/18 05:25 Total Bilirubin 0.7 mg/dL (0.2-1.0) 01/13/18 04:35 AST 29 IU/L (10-42) 01/13/18 04:35 ALT 17 IU/L (10-60) 01/13/18 04:35 Alkaline Phosphatase 73 IU/L (42-121) 01/13/18 04:35 Troponin I < 0.04 ng/mL (<0.49) 01/11/18 16:55 Total Protein 7.4 g/dL (6.7-8.2) 01/13/18 04:35 Albumin 3.6 g/dL (3.2-5.5) 01/13/18 04:35 Globulin 3.8 g/dL (2.1-4.2) 01/13/18 04:35 Albumin/Globulin Ratio 0.9 (1.0-2.2) L 01/13/18 04:35 Triglycerides 240 mg/dL (-149) H 01/12/18 05:25 Cholesterol 190 mg/dL (-199) 01/12/18 05:25 LDL Cholesterol, Calc 110 mg/dL (-129) 01/12/18 05:25 VLDL Cholesterol 48 mg/dL 01/12/18 05:25 HDL Cholesterol 32 mg/dL (60-) L 01/12/18 05:25 LDL/HDL Ratio 3.4 (<4.4) 01/12/18 05:25 Cholesterol/HDL Ratio 5.9 (<4.4) 01/12/18 05:25 Lipase 16 U/L (22-51) L 01/11/18 16:55 TSH 0.57 uIU/mL (0.34-5.60) 01/12/18 05:25 Urine Color YELLOW 01/11/18 17:25 Urine Clarity CLEAR (CLEAR) 01/11/18 17:25 Urine pH 6.0 PH (5.0-7.5) 01/11/18 17:25 Ur Specific [place] 1.020 (1.002-1.030) 01/11/18 17:25 Urine Protein TRACE mg/dL (NEGATIVE) 01/11/18 17:25 Urine Glucose (UA) NEGATIVE mg/dL (NEGATIVE) 01/11/18 17:25 Urine Ketones NEGATIVE mg/dL (NEGATIVE) 01/11/18 17:25 Urine Occult Blood NEGATIVE (NEGATIVE) 01/11/18 17:25 Urine Nitrite NEGATIVE (NEGATIVE) 01/11/18 17:25 Urine Bilirubin NEGATIVE (NEGATIVE) 01/11/18 17:25 Urine Urobilinogen 0.2 (NORMAL) E.U./dL (NORMAL) 01/11/18 17:25 Ur Leukocyte Esterase NEGATIVE (NEGATIVE) 01/11/18 17:25 Ur Microscopic Review NOT INDICATED 01/11/18 17:25 Urine Culture Comments NOT INDICATED 01/11/18 17:25 Last Dose Date UNK 01/12/18 05:25 Last Dose Time UNK 01/12/18 05:25 Digoxin 0.6 ng/mL 01/12/18 05:25 - Procedures Procedures: Procedures DESTRUC-SHOULDER LES NEC (01/16/15) EXCISION OF ASCENDING COLON, ENDO (04/05/16) EXCISION OF ESOPHAGUS, ENDO, DIAGN (04/05/16) EXCISION OF STOMACH, ENDO, DIAGN (04/05/16) INSPECTION OF UPPER INTESTINAL TRACT, ENDO (04/17/16) REPAIR ASCENDING COLON, ENDO (04/17/16) TRANSFUSE NONAUT RED BLOOD CELLS IN PERIPH VEIN, PERC (04/17/16)
[2018-01-13] MEDS ORDERED: CALCIUM CARBONATE CHEW 500 MG TABLET PO PRN (14:28)
[2018-01-13] MEDS: ACETAMINOPHEN/CODEINE 300 MG/30 MG TABLET PO PRN (15:49)
[2018-01-13] MEDS: LOSARTAN 50 MG TABLET PO SCH (19:15)
[2018-01-13] MEDS: SPIRONOLACTONE 25 MG TABLET PO SCH (19:16)
[2018-01-13] MEDS: ATORVASTATIN 40 MG TABLET PO SCH (20:46)
[2018-01-13] MEDS: MAGNESIUM OXIDE 400 MG TABLET PO SCH (20:47)
[2018-01-13] MEDS ORDERED: MAGNESIUM OXIDE 400 MG TABLET PO SCH (21:00)
[2018-01-13] MEDS ORDERED: Melatonin [Melatonin] 5 MG PO SCH (21:00)
[2018-01-13] MEDS ORDERED: APIXABAN 5 MG PO SCH (21:00)
[2018-01-13] MEDS ORDERED: MORPHINE ER 15 MG TABLET PO SCH (22:00)
[2018-01-14] MEDS: SODIUM CHLORIDE FLUSH 0.9% 10 ML SYRINGE IVP SCH ×2 (01:30→08:51)
[2018-01-14] MEDS: GABAPENTIN 300 MG CAPSULE PO SCH (05:34)
[2018-01-14] MEDS: MORPHINE ER 15 MG TABLET PO SCH (05:35)
[2018-01-14 06:12] LABS: BASOPHILS # (AUTO) 0.1 10^3/uL (0.0-0.1); BASOPHILS % (AUTO) 1.3 %; EOSINOPHILS # (AUTO) 0.3 10^3/uL (0.0-0.7); EOSINOPHILS % (AUTO) 4.8 %; HGB - HEMOGLOBIN 13.2 g/dL (12.0-16.0); LYMPHOCYTES # (AUTO) 1.6 10^3/uL (1.5-3.5); LYMPHOCYTES % (AUTO) 21.8 %; MEAN CORPUSCULAR HEMOGLOBIN 25.6 pg (27.0-31.0); MEAN CORPUSCULAR HGB CONC 31.6 g/dL (32.0-36.0); MEAN CORPUSCULAR VOLUME 81.2 fL (81.0-99.0); MEAN PLATELET VOLUME 7.3 fL (7.9-10.8); MONOCYTES # (AUTO) 0.7 10^3/uL (0.0-1.0); MONOCYTES % (AUTO) 10.2 %; NEUTROPHILS # (AUTO) 4.4 10^3/uL (1.5-6.6); NEUTROPHILS % (AUTO) 61.9 %; PLT - PLATELET COUNT 307 10^3/uL (130-450); RED BLOOD COUNT 5.15 10^6/uL (4.20-5.40); RED CELL DISTRIBUTION WIDTH 15.8 % (12.0-15.0); WHITE BLOOD COUNT 7.2 x10^3/uL (4.8-10.8)
[2018-01-14 06:18] LABS: ALBUMIN 3.5 g/dL (3.2-5.5); BILIRUBIN,TOTAL 0.5 mg/dL (0.2-1.0); CALCIUM 8.8 mg/dL (8.5-10.3); CREATININE 0.8 mg/dL (0.4-1.0); TOTAL PROTEIN 6.9 g/dL (6.7-8.2)
[2018-01-14] MEDS ORDERED: LEVOTHYROXINE 112 MCG TABLET PO SCH (07:00)
[2018-01-14] MEDS ORDERED: LEVOTHYROXINE 125 MCG TABLET PO SCH (07:00)
[2018-01-14 07:43] VITALS: BP 139/65
--- NOTE | 2018-01-14 08:33 | Discharge Plan ---
"Discharge Plan for SNF / [facility] - DC Plan and Transition Orders Disposition: 03 SNF DC/Xfer Condition: Good SNF Transition Orders: Admit to: [facility] under the care of Josephine Noriega Discharge Diagnosis: Right sided weakness, CVA, chronic atrial fibrillation, STM loss, ataxia, hypothyroidism, DM type 2, hypertension, vision loss, and pulmonary hypertension. Medicare Certification: I certify that [facility] custod[facility] care is medically necessary on a continuing basis for any of the conditions for which she/he is receiving care during hospitalization. Notify PCP of admission and forward orders to primary provider for signature. Weight on admission and weekly. Call PCP immediately if weight increases by 10 pounds or if patient develops dyspnea, chest pain/tightness or edema. House Bowel Program: yes If no BM after 2 days, nurse may give M.O.M. 30ml PO PRN and /or ducolax Supp 1 GA and /or JANNETH 250mg P.O., and/or senna 1-2 tabs PO. On day 3 nurse may give repeat above order until residents constipation is resolved. Immunizations: Annual Influenza Vaccine: yes. (between May 23 and December 20. ) Unless allergy or already given Two-Step PPD: yes per [facility] [id number] or appropriate documentation of approved exceptions Treatments & Other Orders: PT/OT and speech evaluation as per facility protocol. Strength and stamina training and rehabilitation. Oxygen Orders: 2L per nasal cannual while sleeping for probable obstructive sleep apnea as evidenced by mod Lab Tests or X-Rays Orders: No labs indicated. Orthopedic Orders: N/A. Medications: PLEASE REFER TO THE DISCHARGE MEDICATION LIST. Insulin Orders? Yes Diagnosis: Diabetes mellitus type 2: Initiate hypo and hyperglycemia protocols for BG <70 and BG >375. May check BG prn for signs/symptoms of dysglycemia. Frequency of BG checks: AC/Meal/HS Basal Insulin: Lantus 26 units; inject subq DAILY. No sliding scale or correction insulin. Resume Metformin 1000mg BID PO. Allergies and Adverse Reactions: Allergies Allergy/AdvReac Type Severity Reaction Status Date / Time albuterol Allergy Unknown Verified 01/11/18 16:19 cortisone Allergy Edema Verified 01/11/18 16:19 latex Allergy Hives Verified 01/11/18 16:19 prednisone Allergy Edema Verified 01/11/18 16:19 Lpbogkv-Gsf-Fnk Reductase Allergy Unknown Verified 01/11/18 16:19 Inhibitor oxycodone AdvReac Dizziness Verified 01/11/18 16:19 - Diet Type: Geriatric Texture: Regular Liquids: Thin May have monthly special meal: Yes - Therapies | Activity Therapy: Evaluation | Treat if indicated: Speech, PT, OT Rehabilitation Potential: Maximize functional status, Maintain present ADL Functional Activity: Activity as Tolerated Weight Bearing: Full Weight Assistance Devices: Walker Additional Instructions: You were admitted for similar symptoms that you have had in the past when you had a stroke. All imaging was negative for any new damage. A sleeping oxygen test was ordered, but the lowest recording was 93%, so no sleeping oxygen can be ordered."
--- NOTE | 2018-01-14 08:35 | DISCHARGE SUMMARY ---
Discharge Summary Admit Date: 01/11/18 Discharge Date: 01/14/18 Discharging Provider: KERLINE Veronica Primary Care Provider: Josephine Noriega Code Status: Do Not Attempt Resuscitation Condition at Discharge: Good Discharge Disposition: 03 SNF DC/Xfer - DIAGNOSES Admission Diagnoses: Cerebral infarction, unspecified (I63.9) Hypothyroidism, unspecified (E03.9) Type 2 diabetes mellitus with diabetic peripheral angiopathy without gangrene ( E11.51) Essential (primary) hypertension (I10) Chronic atrial fibrillation (I48.2) Discharge Diagnoses with Status of Each Condition: Diabetes mellitus type 2 with atherosclerosis of arteries of extremities (E11.51 )-chronic, stable. Hypertension (I10)-chronic, stable. CVA (cerebral vascular accident) (I63.9)- ruled out, history. Anticoagulant long-term use (Z79.01)- chronic use. Atrial fibrillation, chronic (I48.2)- chronic, stable. Hypothyroidism (E03.9)-chronic, stable. - HPI History of Present Illness: Ms. Chao is a pleasant 68-year-old female with a significant past medical history for multiple strokes including twice in 2003, one in 2005, a stroke in 2017, and recent one on two weeks ago, atrial fibrillation on anticoagulant, Eliquis plus anti-platelet Aspirin, diabetes, anemia, bilateral lower extremity edema, hypertension, osteoarthritis, hypothyroidism, fibromyalgia and chronic pain, who presented to the emergency department with a chief complaint of right side weakness and slurred speech. Pt was admitted to the hospital on December 30 for a stroke. Then pt was subsequently discharged to a care home facility , but pt had a frequent fell in SNF. Then pt's family decided to take pt to home. Pt is currently living by herself but pt's daughters are staying nearly by her. Today two daughters noticed that she was more slurred than usual, increase right-sided weakness and unable to stand by herself. The patient denies any headache, neck pain, chest pain, shortness of air, orthopnea, PND, any fevers, chills, night sweating, runny nose, sore throat, nasal congestion, abdominal pain, nausea, vomiting, diarrhea. On presentation to the emergency department the patient was afebrile, heart rate was within normal limits, she was slightly hypertensive but otherwise was not in any respiratory distress. There is a slight weakness at right side, some slurred speech but unkown if this is her baseline. The patient's lab work revealed INR of 1.4, Na 130, otherwise unremarkable. The patient underwent a CT of her head which showed chronic findings without any evidence of acute disease. Pt's EKG showed a chronic atrial fibrillation. Pt and Pt's daughters concern she had multiple strokes and look for a palliative care. The patient was admitted for further neurologic stroke workup including neuro checks and MRI evaluation, PT/OT/SP, further consulting for palliative care. - HOSPITAL COURSE Hospital Course: The following diagnoses were prevalent during this hospital stay: (1) Diabetes mellitus type 2, controlled, with complications The patient has a long-standing history of DM type 2 and is treated with daily scheduled Lantus at 26 units and Metformin 1000mg PO BID at home. A hemoglobin A1C was checked on 01/11/18 and 6.9%. Early AM blood sugar was 142. Metformin was held as per hospital protocol, and the patient's blood sugars were monitored throughout her stay. Upon discharge, home meds were unchanged and resumed. (2) Anticoagulant long-term use The patient has had several TIAs/CVAs despite being adequately anticoagulated. She currently takes Eliquis, which is to continue while in the hospital. She has not having adverse reactions such as brain or GI bleeding. Upon discharge, the patient was to continue current medications. (3) Atrial fibrillation Patient has had a-fib for several years and was noted to have an enlarged left atria. She takes metoprolol and digoxin at home, which were resumed. She was not thought to have any other arrhythmias while hospitalized, including RVR. (4) CVA (cerebral vascular accident) The patient presented this time to the ED with right sided weakness and slurred speech, which is nearly resolved upon exam today. All testing/work up for CVA is negative. The patient underwent a head CT upon admission which showed no acute changes. A brain MRI was completed and showed no changes since previous admission on 12/30/17. Carotid dopplers were completed and also showed no abnormalities. The patient should now have 24 hour care, and social work is assisting with this, who assisted with SNF prison placement. All antihypertensives were resumed upon discharge. (5) Hypothyroidism- The patient has a known history of this and her usual home dose of Synthroid is 237mcg, which was continued while in the hospital. She denies symptoms and has had no problems swallowing. A recent TSH was WNL at 0.57, so no adjustments were made. 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 She was in stable condition and at baseline cognition upon discharge. - ALLERGIES Allergies/Adverse Reactions: Allergies Allergy/AdvReac Type Severity Reaction Status Date / Time albuterol Allergy Unknown Verified 01/11/18 16:19 cortisone Allergy Edema Verified 01/11/18 16:19 latex Allergy Hives Verified 01/11/18 16:19 prednisone Allergy Edema Verified 01/11/18 16:19 Aqgbinz-Yve-Qxd Reductase Allergy Unknown Verified 01/11/18 16:19 Inhibitor oxycodone AdvReac Dizziness Verified 01/11/18 16:19 - MEDICATIONS Home Medications: Ambulatory Orders Medication Instructions Recorded Confirmed Apixaban [Eliquis] 5 mg PO BID 01/11/18 01/12/18 Aspirin [Aspirin EC] 81 mg PO DAILY 01/11/18 01/12/18 DULoxetine [Cymbalta] 30 mg PO DAILY 01/11/18 01/12/18 Digoxin [Lanoxin] 0.125 mg PO DAILY 01/11/18 01/12/18 Duloxetine HCl [Cymbalta] 60 mg PO DAILY 01/11/18 01/12/18 Furosemide [Lasix] 20 mg PO DAILY 01/11/18 01/12/18 Gabapentin 300 mg PO TID 01/11/18 01/12/18 Insulin Glargine [Lantus] 26 units SQ DAILY 01/11/18 01/12/18 Losartan Potassium 25 mg PO DAILY 01/11/18 01/12/18 Melatonin 5 mg PO DAILY 01/11/18 01/12/18 Nitrofurantoin Macrocrystal 50 mg PO DAILY 01/11/18 01/12/18 [Nitrofurantoin] Spironolactone 25 mg PO DAILY 01/11/18 01/12/18 metFORMIN [Glucophage] 1,000 mg PO BIDWM 01/11/18 01/12/18 Acetaminophen/Cod 300/30 [Tylenol 1 tab PO QID PRN 01/12/18 01/12/18 #3] Calcium Carbonate [Tums (Calcium 500 mg PO Q4-6H PRN 01/12/18 01/12/18 Carbonate 500mg)] Levothyroxine Sodium 100 mcg PO QDAC 01/12/18 01/12/18 Levothyroxine Sodium 137 mcg PO QDAC 01/12/18 01/12/18 Magnesium Oxide [Magnesium] 500 mg PO BID 01/12/18 01/12/18 Metoprolol Tartrate [Lopressor] 100 mg PO BID 01/12/18 01/12/18 Morphine Sulfate [Morphine Sulfate 15 mg PO TID 01/12/18 01/12/18 ER] - PHYSICAL EXAM AT DISCHARGE General Appearance: positive: No acute distress, Alert, Anxious Eyes Bilateral: positive: Normal inspection, PERRL ENT: positive: ENT inspection nml, Pharynx nml, No signs of dehydration Neck: positive: Nml inspection, No JVD, Trachea midline, Other (thyroidectomy) Respiratory: positive: Chest non-tender, No respiratory distress, Breath sounds nml Cardiovascular: positive: No gallop, Irregularly irregular, Systolic murmur, Decreased pulse(s) Peripheral Pulses: positive: 1+ Abdomen: positive: Non-tender, No organomegaly, Nml bowel sounds, No distention Back: positive: Nml inspection Skin: positive: No rash, Warm, Dry Extremities: positive: Non-tender, Full ROM, Nml appearance, Pedal edema ( dependent) Neurologic/Psychiatric: positive: Oriented x3, Motor nml, Sensation nml, Weakness, Sensory loss, Slurred/abnml speech, Depressed mood/affect Reflexes: Bicep (R): 1+, Bicep (L): 2+ - LABS Result Diagrams: 01/14/18 05:30 01/14/18 05:30 - DIAGNOSTIC IMAGING Diagnostic Imaging Results: Final report reviewed Diagnostic Imaging Results Comments: EXAM: MRI BRAIN WITHOUT CONTRAST EXAM DATE: 01/12/2018 11:26 AM. CLINICAL HISTORY: Stroke follow-up. COMPARISON: 12/30/2017. TECHNIQUE: Multiplanar, multisequence T1-weighted and fluid-sensitive MR sequences of the brain were performed. Sequences optimized for routine evaluation. Other: None. IV Contrast: None. FINDINGS: Again seen are findings of signal abnormality consistent with recent infarcts of the right internal capsule and left peritrigonal white matter. These findings are evolving as expected in comparison to the recent prior brain MRI. No other MRI evidence for new or acute intracranial abnormality. No hemorrhage. Otherwise stable findings of atrophy and extensive changes consistent with chronic multifocal small vessel ischemic disease including of the cerebral white matter and brainstem with multiple chronic intermixed lacunar infarcts as before. No acute sinus or mastoid disease. Prior lens extractions. No hydrocephalus, midline shift or abnormal subdural fluid collection. IMPRESSION: 1. Expected evolution of recent infarcts. 2. No other MRI evidence for new or acute intracranial abnormality. - FOLLOW UP Follow Up: Disposition: [facility] DC/Xfer Condition: Good SNF Transition Orders: Admit to: [facility] under the care of Josephine Noriega Discharge Diagnosis: Right sided weakness, CVA, chronic atrial fibrillation, STM loss, ataxia, hypothyroidism, DM type 2, hypertension, vision loss, and pulmonary hypertension. - TIME SPENT Time Spent in Discharge (Minutes): 60
[2018-01-14] MEDS: MAGNESIUM OXIDE 400 MG TABLET PO SCH (08:46)
[2018-01-14] MEDS: FAMOTIDINE 20 MG TABLET PO SCH (08:46)
[2018-01-14] MEDS: APIXABAN 2.5 MG TABLET PO SCH (08:46)
[2018-01-14] MEDS: LOSARTAN 50 MG TABLET PO SCH (08:47)
[2018-01-14] MEDS: DIGOXIN 125 MCG TABLET PO SCH (08:48)
[2018-01-14] MEDS: FUROSEMIDE 20 MG TABLET PO SCH (08:48)
[2018-01-14] MEDS: METOPROLOL TARTRATE 50 MG TABLET PO SCH (08:49)
[2018-01-14] MEDS: SPIRONOLACTONE 25 MG TABLET PO SCH (08:49)
[2018-01-14] MEDS: INSULIN GLARGINE 300 UNIT/3 ML PEN SUBQ SCH (08:50)
[2018-01-14] MEDS: INSULIN ASPART 300 UNIT/3 ML PEN SUBQ SCH ×2 (08:50→11:17)
[2018-01-14] MEDS: POLYETHYLENE GLYCOL 3350 17 GM PACKET PO SCH (08:51)
[2018-01-14] MEDS ORDERED: NON FORMULARY MED (Losartan Potassium [Losartan Potassium] 25 MG) PO SCH (09:00)
[2018-01-14] MEDS ORDERED: NON FORMULARY MED (Duloxetine Hcl [Cymbalta] 60 MG) PO SCH (09:00)
[2018-01-14] MEDS ORDERED: ASPIRIN EC 81 MG TABLET PO SCH (09:00)
[2018-01-14] MEDS ORDERED: DULoxetine 30 MG CAPSULE PO SCH (09:00)
[2018-01-14] MEDS ORDERED: SPIRONOLACTONE 25 MG TABLET PO SCH (09:00)
[2018-01-14] MEDS ORDERED: NITROFURANTOIN MACRO 100 MG CAPSULE PO SCH (09:00)
[2018-01-14] MEDS: ACETAMINOPHEN/CODEINE 300 MG/30 MG TABLET PO PRN (10:02)
== END 2018-01-14 13:34 | DRG 57 ==
LOC: EDUNIT# → ED 16:10 → MS2 18:35
PROVIDERS: ADMIT Nurse Practitioner Gerontology; ATTEND Nurse Practitioner
DX: I63.9 Cerebral infarction, unspecified (principal); G81.91 Hemiplegia, unspecified affecting right dominant side; R29.705 NIHSS score 5; R47.1 Dysarthria and anarthria; R29.810 Facial weakness; E87.1 Hypo-osmolality and hyponatremia; E86.0 Dehydration; I48.91 Unspecified atrial fibrillation; E11.9 Type 2 diabetes mellitus without complications; I69.351 Hemiplegia and hemiparesis following cerebral infarction affecting right dominant side; I69.328 Other speech and language deficits following cerebral infarction; E03.9 Hypothyroidism, unspecified; Z79.891 Long term (current) use of opiate analgesic; Z86.73 Personal history of transient ischemic attack (TIA), and cerebral infarction without residual deficits; E11.51 Type 2 diabetes mellitus with diabetic peripheral angiopathy without gangrene; I11.9 Hypertensive heart disease without heart failure; I48.2 Chronic atrial fibrillation; G89.29 Other chronic pain; M79.7 Fibromyalgia; I27.20 Pulmonary hypertension, unspecified; N30.20 Other chronic cystitis without hematuria; F32.9 Major depressive disorder, single episode, unspecified; F41.9 Anxiety disorder, unspecified; E11.42 Type 2 diabetes mellitus with diabetic polyneuropathy; M32.9 Systemic lupus erythematosus, unspecified; I69.393 Ataxia following cerebral infarction; Z66 Do not resuscitate; Z51.5 Encounter for palliative care; Z60.2 Problems related to living alone; Z91.81 History of falling; Z79.01 Long term (current) use of anticoagulants; Z79.82 Long term (current) use of aspirin; Z79.4 Long term (current) use of insulin; Z79.899 Other long term (current) drug therapy; Z79.2 Long term (current) use of antibiotics
CPT/HCPCS: 36415; 51701; 70450; 70551; 80053; 80061; 80162; 81001; 81003; 83036; 83690; 83721; 83735; 84443; 84484; 85025; 85610; 85730; 87086; 93005; 93880; 99223; 99284; 99285